=== PATIENT | male | born 1945 | race Caucasian/White ===

== ENCOUNTER 2017-03-12 16:29 | Inpatient (IN) | payer MEDICARE, OTHER ==
[~2017-03-12] VITALS: Ht 172.7 cm; Wt 75.5 kg
[~2017-03-12 16:29] MED LIST: ACET160O49 PO; ACET325T9 PO; ATOR10TA60 PO; BENZ1LOZ48 MM; CHOL10003 PO; DIVA125C PO; DONE10TA61 PO; DULO30CA2 PO; DULO60CA6 PO; ESOM20CA PO; LISI10TA2 PO; LORA0.5T PO; LORA0.5T96 PO; LORA1TAB PO; MAG30ORA2 PO; MAGN2400 PO; MELA3TAB2 PO; MEMA10TA PO; METH29OI TP; QUET100T PO; QUET50TA PO; TRAZ50TA15 PO
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
--- NOTE | 2017-03-12 17:10 | EKG ---
[address] [address] Test Date: 2017-03-12 Test Time: 17:04:39 Pat Name: IVANIA TAM Department: Room: Gender: M Asset Recovery Specialist: FINESSE : 1945 Requested By: JUAN LUIS DELAROSA Order Number: [id number] Reading MD: Lobito Wing Measurements Intervals [place] Rate: 76 P: 21 DC: 228 QRS: 6 QRSD: 82 T: 27 QT: 380 QTc: 432 Interpretive Statements SINUS RHYTHM NONSPECIFIC ST-T WAVE CHANGES. PROLONGED DC INTERVAL ABNORMAL ECG RI6.01 Unconfirmed report Compared to ECG 04/23/2016 19:53:54 No significant changes Electronically Signed On 03-25-2017 10:42:21 TABLE LEVER OPERATOR by Lobito Wing
[2017-03-12 17:25] LABS: BASO % 1 % (0-3); EOS # 0.1 x10^3/uL (0.0-0.7); EOS % 1 % (0-3); HEMATOCRIT 49.9 % (39.0-53.0); HEMOGLOBIN 16.9 g/dL (13.0-17.5); LYMPH # 3.5 x10^3/uL (1.0-4.8); LYMPH % 42 % (24-48); MEAN CORPUSCULAR HEMOGLOBIN 33 pg (25-35); MEAN CORPUSCULAR HGB CONC 34 g/dL (31-37); MEAN CORPUSCULAR VOLUME 98 fL (79-100); MONO # 0.7 x10^3/uL (0.0-1.1); MONO % 8 % (0-9); NEUT % 48 % (31-73); PLATELET COUNT 236 x10^3/uL (140-400); RED BLOOD COUNT 5.11 x10^6/uL (4.30-5.70); RED CELL DISTRIBUTION WIDTH 14.2 % (11.5-14.5); WHITE BLOOD COUNT 8.3 x10^3/uL (4.0-11.0)
[2017-03-12 17:34] LABS: BACTERIA,URINE 0 /HPF (0-FEW); BILIRUBIN,URINE NEG (NEG); CLARITY,URINE CLEAR; COLOR,URINE YELLOW; GLUCOSE,URINE NEG (NEG); NITRITE,URINE NEG (NEG); SQUAMOUS EPITHELIAL CELL,UR MOD /LPF; UROBILINOGEN,URINE 2 mg/dL (0.2 mg/dL); WBC,URINE OCC /HPF (0-4)
[2017-03-12 17:36] LABS: ALBUMIN 3.3 g/dL (3.4-5.0); ALBUMIN/GLOBULIN RATIO 0.8 (1.0-1.7); CREATININE 1.2 mg/dL (0.7-1.3); GFR 59.9; TOTAL BILIRUBIN 0.5 mg/dL (0.2-1.0); TOTAL PROTEIN 7.3 g/dL (6.4-8.2)
[2017-03-12] MEDS ORDERED: DULO30CA2 PO (17:44)
[2017-03-12] MEDS ORDERED: LACT10SO PO (17:46)
[2017-03-12] MEDS ORDERED: LORA0.5T PO (19:26)
[2017-03-12] MEDS: traZODone 50 MG TABLET. PO SCH (20:12)
[2017-03-12] MEDS: LORazepam 0.5 MG TABLET PO PRN (20:12)
[2017-03-12] MEDS: MELATONIN 3 MG TABLET PO SCH (20:12)
[2017-03-12 20:13] LABS: VAL ACID 57 mcg/mL (50-100)
[2017-03-12] MEDS: ATORVASTATIN CALCIUM 10 MG TABLET. PO SCH (20:13)
[2017-03-12] MEDS: DULoxetine HCL 30 MG CAPSULE.DR PO SCH (20:13)
[2017-03-12] MEDS ORDERED: NON FORMULARY ITEM (Magnesium Hydroxide (Milk Of Magnesia) 2,400 MG) PO PRN (20:15)
[2017-03-12] MEDS ORDERED: MAG HYDROX/AL HYDROX/SIMETH 30 ML ORAL.SUSP PO PRN (20:15)
[2017-03-12] MEDS ORDERED: ACETAMINOPHEN 325 MG TABLET PO PRN (20:15)
[2017-03-12] MEDS ORDERED: METHYL SALICYLATE/MENTHOL TOPICAL OINTMENT 29GM TUBE. TP PRN (20:15)
--- NOTE | 2017-03-12 21:08 | PDOC ---
Exam Note: Irvin Note: Please also refer to the separate dictated note~for this date of service dictated separately.~Patient seen individually. Discussed the patient with Nursing staff reviewed the chart.~Reviewed interim history and current functioning. Reviewed vital signs,~Labs/ Radiology~and current medications noted below. Continue current treatment with the changes noted in the dictated addendum note Assessment: Vital Signs: Vital Signs Date Time Temp Pulse Resp B/P (MAP) Pulse Ox O2 Delivery O2 Flow Rate FiO2 03/12/17 16:30 98.2 79 16 98 Room Air Labs: Laboratory Tests Test 03/12/17 16:42 03/12/17 17:01 White Blood Count 8.3 x10^3/uL (4.0-11.0) Red Blood Count 5.11 x10^6/uL (4.30-5.70) Hemoglobin 16.9 g/dL (13.0-17.5) Hematocrit 49.9 % (39.0-53.0) Mean Corpuscular Volume 98 fL (79-100) Mean Corpuscular Hemoglobin 33 pg (25-35) Mean Corpuscular Hemoglobin Concent 34 g/dL (31-37) Red Cell Distribution Width 14.2 % (11.5-14.5) Platelet Count 236 x10^3/uL (140-400) Neutrophils (%) (Auto) 48 % (31-73) Lymphocytes (%) (Auto) 42 % (24-48) Monocytes (%) (Auto) 8 % (0-9) Eosinophils (%) (Auto) 1 % (0-3) Basophils (%) (Auto) 1 % (0-3) Neutrophils # (Auto) 4.0 x10^3uL (1.8-7.7) Lymphocytes # (Auto) 3.5 x10^3/uL (1.0-4.8) Monocytes # (Auto) 0.7 x10^3/uL (0.0-1.1) Eosinophils # (Auto) 0.1 x10^3/uL (0.0-0.7) Basophils # (Auto) 0.0 x10^3/uL (0.0-0.2) Sodium Level 145 mmol/L (136-145) Potassium Level 4.0 mmol/L (3.5-5.1) Chloride Level 107 mmol/L (98-107) Carbon Dioxide Level 28 mmol/L (21-32) Anion Gap 10 (6-14) Blood Urea Nitrogen 19 mg/dL (8-26) Creatinine 1.2 mg/dL (0.7-1.3) Estimated GFR (Cockcroft-Gault) 59.9 BUN/Creatinine Ratio 16 (6-20) Glucose Level 103 mg/dL (70-99) H Calcium Level 9.0 mg/dL (8.5-10.1) Total Bilirubin 0.5 mg/dL (0.2-1.0) Aspartate Amino Transferase (AST) 13 U/L (15-37) L Alanine Aminotransferase (ALT) 24 U/L (16-63) Alkaline Phosphatase 44 U/L (46-116) L Total Protein 7.3 g/dL (6.4-8.2) Albumin 3.3 g/dL (3.4-5.0) L Albumin/Globulin Ratio 0.8 (1.0-1.7) L Valproic Acid Level 57 mcg/mL (50-100) Valproic Acid Last Dose Date 03/12/17 Valproic Acid Last Dose Time 1300 Urine Collection Type Unknown Urine Color Yellow Urine Clarity Clear Urine pH 7.0 Urine Specific [place] 1.020 Urine Protein Neg (NEG-TRACE) Urine Glucose (UA) Neg mg/dL (NEG) Urine Ketones (Stick) Trace mg/dL (NEG) Urine Blood Mod (NEG) Urine Nitrite Neg (NEG) Urine Bilirubin Neg (NEG) Urine Urobilinogen Dipstick 2 mg/dL (0.2 mg/dL) Urine Leukocyte Esterase Neg (NEG) Urine RBC 11-20 /HPF (0-2) Urine WBC Occ /HPF (0-4) Urine Squamous Epithelial Cells Mod /LPF Urine Bacteria 0 /HPF (0-FEW) Urine Mucus Mod /LPF Current Medications: Meds: Current Medications Divalproex Sodium (Depakote Sprinkles) 375 mg TID@0700,1300,1900 PO ; Start at 07:00 Duloxetine HCl (Cymbalta) 30 mg HS PO Last administered on 03/12/17t 20:13; Start 03/12/17 at 21:00 Duloxetine HCl (Cymbalta) 60 mg DAILY PO ; Start 03/13/17 at 09:00 Lorazepam (Ativan) 0.25 mg PRN Q2HR PRN PO ANXIETY / AGITATION Last administered on 03/12/17 20:12; Start 03/12/17 at 19:45 Memantine (Namenda) 10 mg DAILY PO ; Start 03/13/17 at 09:00 Quetiapine Fumarate (SEROquel) 50 mg TID@0700,1300,1900 PO ; Start 03/13/17 at 07:00 Quetiapine Fumarate (SEROquel) 100 mg DAILY16 PO ; Start 03/13/17 at 16:00 Trazodone HCl (Desyrel) 100 mg HS PO Last administered on 03/12/17 20:12; Start 03/12/17 at 21:00 Melatonin 3 mg QHS PO Last administered on 03/12/17 20:12; Start 03/12/17 at 21:00 Acetaminophen (Tylenol) 650 mg PRN Q6HRS PRN PO PAIN / TEMP; Start 03/12/17 at 20:15 Atorvastatin Calcium (Lipitor) 10 mg QHS PO Last administered on 03/12/17 20: 13; Start 03/12/17 at 21:00 Al Hydroxide/Mg Hydroxide (Mylanta Plus Xs) 15 ml QIDPRN PRN PO DYSPEPSIA; Start 03/12/17 at 20:15 Multi-Ingredient Ointment (Analgesic [place]) 1 shaila PRN QID PRN TP MUSCLE PAIN; Start 03/12/17 at 20:15 Pantoprazole Sodium (Protonix) 40 mg DAILYAC PO ; Start 03/13/17 at 07:30 Lactulose 10 gm DAILYWBKFT PO ; Start 03/13/17 at 08:00 Non-Formulary Medication 2,400 mg PRN QHS PRN PO CONSTIPATION; Start 03/12/17 at 20:15; Stop 03/12/17 at 20:15; Status DC Magnesium Hydroxide (Milk Of Magnesia) 2,400 mg PRN QHS PRN PO CONSTIPATION; Start 03/12/17 at 20:15 Active Scripts Active Reported Lorazepam 0.5 Mg Tablet 0.25 Mg PO PRN Q2HR PRN MDD 2mg/24hrs Lactulose 10 Gm/15 Ml Solution 10 Gm PO DAILYWBKFT Depakote Sprinkle (Divalproex Sodium) 125 Mg Cap.sprink 375 Mg PO TID 0700, 1300 , 1900 Analgesic [place] (Methyl Salicylate/Menthol) 29 Gm Oint...g. 1 Applic TP QID PRN Milk Of Magnesia (Magnesium Hydroxide) 2,400 Mg/10 Ml Oral.susp 2,400 Mg PO HS PRN Mag-Al Plus Xs Suspension (Mag Hydrox/Al Hydrox/Simeth) 30 Ml Oral.susp 15 Ml PO QIDPRN PRN Tylenol (Acetaminophen) 325 Mg Tablet 650 Mg PO Q6HRS PRN Trazodone Hcl 50 Mg Tablet 100 Mg PO HS Quetiapine Fumarate 50 Mg Tablet 50 Mg PO TID 0700, 1300, 1900 Quetiapine Fumarate 100 Mg Tablet 100 Mg PO DAILY16 Namenda (Memantine Hcl) 10 Mg Tablet 10 Mg PO DAILY 10 Days Melatonin 3 Mg Tablet 3 Mg PO HS Esomeprazole Magnesium 20 Mg Capsule.dr 20 Mg PO DAILY Cymbalta (Duloxetine Hcl) 60 Mg Capsule.dr 60 Mg PO DAILY Cymbalta (Duloxetine Hcl) 30 Mg Capsule.dr 30 Mg PO HS Atorvastatin Calcium 10 Mg Tablet 10 Mg PO QHS I have reviewed the current psychotropics carefully including drug interactions. Risk benefit ratio favors no change other than as noted in my dictated progress note. Diagnosis: Problems: (1) Dementia with behavioral disturbance (2) Dementia, vascular, with depression (3) Impulse control disorder (4) Anxiety disorder (5) Lewy body dementia with behavioral disturbance SOHAIL VELASQUEZ MD Mar 12, 2017 21:08
--- NOTE | 2017-03-12 21:46 | PDOC ---
Exam Note: Irvin Note: Please also refer to the separate dictated note~for this date of service dictated separately.~Patient seen individually. Discussed the patient with Nursing staff reviewed the chart.~Reviewed interim history and current functioning. Reviewed vital signs,~Labs/ Radiology~and current medications noted below. Continue current treatment with the changes noted in the dictated addendum note Assessment: Vital Signs: Vital Signs Date Time Temp Pulse Resp B/P (MAP) Pulse Ox O2 Delivery O2 Flow Rate FiO2 03/12/17 16:30 98.2 79 16 98 Room Air Labs: Laboratory Tests Test 03/12/17 16:42 03/12/17 17:01 White Blood Count 8.3 x10^3/uL (4.0-11.0) Red Blood Count 5.11 x10^6/uL (4.30-5.70) Hemoglobin 16.9 g/dL (13.0-17.5) Hematocrit 49.9 % (39.0-53.0) Mean Corpuscular Volume 98 fL (79-100) Mean Corpuscular Hemoglobin 33 pg (25-35) Mean Corpuscular Hemoglobin Concent 34 g/dL (31-37) Red Cell Distribution Width 14.2 % (11.5-14.5) Platelet Count 236 x10^3/uL (140-400) Neutrophils (%) (Auto) 48 % (31-73) Lymphocytes (%) (Auto) 42 % (24-48) Monocytes (%) (Auto) 8 % (0-9) Eosinophils (%) (Auto) 1 % (0-3) Basophils (%) (Auto) 1 % (0-3) Neutrophils # (Auto) 4.0 x10^3uL (1.8-7.7) Lymphocytes # (Auto) 3.5 x10^3/uL (1.0-4.8) Monocytes # (Auto) 0.7 x10^3/uL (0.0-1.1) Eosinophils # (Auto) 0.1 x10^3/uL (0.0-0.7) Basophils # (Auto) 0.0 x10^3/uL (0.0-0.2) Sodium Level 145 mmol/L (136-145) Potassium Level 4.0 mmol/L (3.5-5.1) Chloride Level 107 mmol/L (98-107) Carbon Dioxide Level 28 mmol/L (21-32) Anion Gap 10 (6-14) Blood Urea Nitrogen 19 mg/dL (8-26) Creatinine 1.2 mg/dL (0.7-1.3) Estimated GFR (Cockcroft-Gault) 59.9 BUN/Creatinine Ratio 16 (6-20) Glucose Level 103 mg/dL (70-99) H Calcium Level 9.0 mg/dL (8.5-10.1) Total Bilirubin 0.5 mg/dL (0.2-1.0) Aspartate Amino Transferase (AST) 13 U/L (15-37) L Alanine Aminotransferase (ALT) 24 U/L (16-63) Alkaline Phosphatase 44 U/L (46-116) L Total Protein 7.3 g/dL (6.4-8.2) Albumin 3.3 g/dL (3.4-5.0) L Albumin/Globulin Ratio 0.8 (1.0-1.7) L Valproic Acid Level 57 mcg/mL (50-100) Valproic Acid Last Dose Date 03/12/17 Valproic Acid Last Dose Time 1300 Urine Collection Type Unknown Urine Color Yellow Urine Clarity Clear Urine pH 7.0 Urine Specific [place] 1.020 Urine Protein Neg (NEG-TRACE) Urine Glucose (UA) Neg mg/dL (NEG) Urine Ketones (Stick) Trace mg/dL (NEG) Urine Blood Mod (NEG) Urine Nitrite Neg (NEG) Urine Bilirubin Neg (NEG) Urine Urobilinogen Dipstick 2 mg/dL (0.2 mg/dL) Urine Leukocyte Esterase Neg (NEG) Urine RBC 11-20 /HPF (0-2) Urine WBC Occ /HPF (0-4) Urine Squamous Epithelial Cells Mod /LPF Urine Bacteria 0 /HPF (0-FEW) Urine Mucus Mod /LPF Current Medications: Meds: Current Medications Divalproex Sodium (Depakote Sprinkles) 375 mg TID@0700,1300,1900 PO ; Start at 07:00 Duloxetine HCl (Cymbalta) 30 mg HS PO Last administered on 03/12/17t 20:13; Start 03/12/17 at 21:00 Duloxetine HCl (Cymbalta) 60 mg DAILY PO ; Start 03/13/17 at 09:00 Lorazepam (Ativan) 0.25 mg PRN Q2HR PRN PO ANXIETY / AGITATION Last administered on 03/12/17 20:12; Start 03/12/17 at 19:45 Memantine (Namenda) 10 mg DAILY PO ; Start 03/13/17 at 09:00 Quetiapine Fumarate (SEROquel) 50 mg TID@0700,1300,1900 PO ; Start 03/13/17 at 07:00 Quetiapine Fumarate (SEROquel) 100 mg DAILY16 PO ; Start 03/13/17 at 16:00 Trazodone HCl (Desyrel) 100 mg HS PO Last administered on 03/12/17 20:12; Start 03/12/17 at 21:00 Melatonin 3 mg QHS PO Last administered on 03/12/17 20:12; Start 03/12/17 at 21:00 Acetaminophen (Tylenol) 650 mg PRN Q6HRS PRN PO PAIN / TEMP; Start 03/12/17 at 20:15 Atorvastatin Calcium (Lipitor) 10 mg QHS PO Last administered on 03/12/17 20: 13; Start 03/12/17 at 21:00 Al Hydroxide/Mg Hydroxide (Mylanta Plus Xs) 15 ml QIDPRN PRN PO DYSPEPSIA; Start 03/12/17 at 20:15 Multi-Ingredient Ointment (Analgesic [place]) 1 shaila PRN QID PRN TP MUSCLE PAIN; Start 03/12/17 at 20:15 Pantoprazole Sodium (Protonix) 40 mg DAILYAC PO ; Start 03/13/17 at 07:30 Lactulose 10 gm DAILYWBKFT PO ; Start 03/13/17 at 08:00 Non-Formulary Medication 2,400 mg PRN QHS PRN PO CONSTIPATION; Start 03/12/17 at 20:15; Stop 03/12/17 at 20:15; Status DC Magnesium Hydroxide (Milk Of Magnesia) 2,400 mg PRN QHS PRN PO CONSTIPATION; Start 03/12/17 at 20:15 Active Scripts Active Reported Lorazepam 0.5 Mg Tablet 0.25 Mg PO PRN Q2HR PRN MDD 2mg/24hrs Lactulose 10 Gm/15 Ml Solution 10 Gm PO DAILYWBKFT Depakote Sprinkle (Divalproex Sodium) 125 Mg Cap.sprink 375 Mg PO TID 0700, 1300 , 1900 Analgesic [place] (Methyl Salicylate/Menthol) 29 Gm Oint...g. 1 Applic TP QID PRN Milk Of Magnesia (Magnesium Hydroxide) 2,400 Mg/10 Ml Oral.susp 2,400 Mg PO HS PRN Mag-Al Plus Xs Suspension (Mag Hydrox/Al Hydrox/Simeth) 30 Ml Oral.susp 15 Ml PO QIDPRN PRN Tylenol (Acetaminophen) 325 Mg Tablet 650 Mg PO Q6HRS PRN Trazodone Hcl 50 Mg Tablet 100 Mg PO HS Quetiapine Fumarate 50 Mg Tablet 50 Mg PO TID 0700, 1300, 1900 Quetiapine Fumarate 100 Mg Tablet 100 Mg PO DAILY16 Namenda (Memantine Hcl) 10 Mg Tablet 10 Mg PO DAILY 10 Days Melatonin 3 Mg Tablet 3 Mg PO HS Esomeprazole Magnesium 20 Mg Capsule.dr 20 Mg PO DAILY Cymbalta (Duloxetine Hcl) 60 Mg Capsule.dr 60 Mg PO DAILY Cymbalta (Duloxetine Hcl) 30 Mg Capsule.dr 30 Mg PO HS Atorvastatin Calcium 10 Mg Tablet 10 Mg PO QHS I have reviewed the current psychotropics carefully including drug interactions. Risk benefit ratio favors no change other than as noted in my dictated progress note. Diagnosis: Problems: (1) DEMENTIA WITH LEWY BODIES (2) Dementia with behavioral disturbance (3) Lewy body dementia with behavioral disturbance (4) Anxiety disorder (5) Impulse control disorder (6) Dementia, vascular, with depression (7) Diabetes mellitus SOHAIL VELASQUEZ MD Mar 12, 2017 21:46
[2017-03-12 22:54] VITALS: BP 138/78
[2017-03-13] MEDS: QUEtiapine 25 MG TABLET. PO SCH ×4 (05:34→18:27)
[2017-03-13] MEDS: DIVALPROEX 125 MG CAP.SPRINK PO SCH ×3 (05:34→18:27)
[2017-03-13 05:52] VITALS: BP 148/92
--- NOTE | 2017-03-13 08:01 | RAD ---
Single view chest 03/12/2017 Clinical indication: Altered mental status. Comparison: 04/23/2016 Findings: Cardiac and mediastinal silhouettes are within normal limits. No pleural effusion, pneumothorax or focal consolidation. Impression: No acute cardiopulmonary abnormality.
[2017-03-13] MEDS: LACTULOSE 20 GM/30 ML SOLUTION. PO SCH (09:47)
[2017-03-13] MEDS: PANTOPRAZOLE 40 MG TABLET. PO SCH (09:47)
[2017-03-13] MEDS: DULoxetine HCL 60 MG CAPSULE.DR PO SCH (09:47)
[2017-03-13] MEDS: MEMANTINE 5 MG TABLET. PO SCH (09:48)
[2017-03-13 10:59] LABS: THYROID STIM HORMONE (TSH) 2.293 uIU/mL (0.358-3.740)
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
[2017-03-13 14:09] LABS: T3 TOTAL 69 ng/dL (71-180); THYROXINE 5.3 ug/dL (4.5-12.0)
[2017-03-13 15:06] LABS: HEMOGLOBIN A1C 5.4 % (4.8-5.6)
[2017-03-13 16:09] VITALS: BP 156/65
--- NOTE | 2017-03-13 20:15 | PDOC ---
Exam Note: Irvin Note: Please also refer to the separate dictated note~for this date of service dictated separately.~Patient seen individually. Discussed the patient with Nursing staff reviewed the chart.~Reviewed interim history and current functioning. Reviewed vital signs,~Labs/ Radiology~and current medications noted below. Continue current treatment with the changes noted in the dictated addendum note Assessment: Vital Signs: Vital Signs Date Time Temp Pulse Resp B/P (MAP) Pulse Ox O2 Delivery O2 Flow Rate FiO2 03/13/17 16:09 98.5 92 20 156/65 (95) 98 03/12/17 22:54 Room Air 0.0 I&O Intake and Output 03/13/17 07:00 Intake Total 360 ml Balance 360 ml Intake Oral 360 ml Current Medications: Meds: Current Medications Divalproex Sodium (Depakote Sprinkles) 375 mg TID@0700,1300,1900 PO Last administered on 03/13/17 18:27; Start 03/13/17 at 07:00 Duloxetine HCl (Cymbalta) 30 mg HS PO Last administered on 03/12/17 20:13; Start 03/12/17 at 21:00 Duloxetine HCl (Cymbalta) 60 mg DAILY PO Last administered on 03/13/17 09:47 ; Start 03/13/17 at 09:00 Lorazepam (Ativan) 0.25 mg PRN Q2HR PRN PO ANXIETY / AGITATION Last administered on 03/12/17 20:12; Start 03/12/17 at 19:45 Memantine (Namenda) 10 mg DAILY PO Last administered on 03/13/17 09:48; Start 03/13/17 at 09:00 Quetiapine Fumarate (SEROquel) 50 mg TID@0700,1300,1900 PO Last administered on 03/13/17 18:27; Start 03/13/17 at 07:00 Quetiapine Fumarate (SEROquel) 100 mg DAILY16 PO Last administered on 16:52; Start 03/13/17 at 16:00 Trazodone HCl (Desyrel) 100 mg HS PO Last administered on 03/12/17 20:12; Start 03/12/17 at 21:00 Melatonin 3 mg QHS PO Last administered on 03/12/17 20:12; Start 03/12/17 at 21:00 Acetaminophen (Tylenol) 650 mg PRN Q6HRS PRN PO PAIN / TEMP; Start 03/12/17 at 20:15 Atorvastatin Calcium (Lipitor) 10 mg QHS PO Last administered on 03/12/17 20: 13; Start 03/12/17 at 21:00 Al Hydroxide/Mg Hydroxide (Mylanta Plus Xs) 15 ml QIDPRN PRN PO DYSPEPSIA; Start 03/12/17 at 20:15 Multi-Ingredient Ointment (Analgesic [place]) 1 shaila PRN QID PRN TP MUSCLE PAIN; Start 03/12/17 at 20:15 Pantoprazole Sodium (Protonix) 40 mg DAILYAC PO Last administered on 09:47; Start 03/13/17 at 07:30 Lactulose 10 gm DAILYWBKFT PO Last administered on 03/13/17 09:47; Start at 08:00 Non-Formulary Medication 2,400 mg PRN QHS PRN PO CONSTIPATION; Start 03/12/17 at 20:15; Stop 03/12/17 at 20:15; Status DC Magnesium Hydroxide (Milk Of Magnesia) 2,400 mg PRN QHS PRN PO CONSTIPATION; Start 03/12/17 at 20:15 Active Scripts Active Reported Lorazepam 0.5 Mg Tablet 0.25 Mg PO PRN Q2HR PRN MDD 2mg/24hrs Lactulose 10 Gm/15 Ml Solution 10 Gm PO DAILYWBKFT Depakote Sprinkle (Divalproex Sodium) 125 Mg Cap.sprink 375 Mg PO TID 0700, 1300 , 1900 Analgesic [place] (Methyl Salicylate/Menthol) 29 Gm Oint...g. 1 Applic TP QID PRN Milk Of Magnesia (Magnesium Hydroxide) 2,400 Mg/10 Ml Oral.susp 2,400 Mg PO HS PRN Mag-Al Plus Xs Suspension (Mag Hydrox/Al Hydrox/Simeth) 30 Ml Oral.susp 15 Ml PO QIDPRN PRN Tylenol (Acetaminophen) 325 Mg Tablet 650 Mg PO Q6HRS PRN Trazodone Hcl 50 Mg Tablet 100 Mg PO HS Quetiapine Fumarate 50 Mg Tablet 50 Mg PO TID 0700, 1300, 1900 Quetiapine Fumarate 100 Mg Tablet 100 Mg PO DAILY16 Namenda (Memantine Hcl) 10 Mg Tablet 10 Mg PO DAILY 10 Days Melatonin 3 Mg Tablet 3 Mg PO HS Esomeprazole Magnesium 20 Mg Capsule.dr 20 Mg PO DAILY Cymbalta (Duloxetine Hcl) 60 Mg Capsule.dr 60 Mg PO DAILY Cymbalta (Duloxetine Hcl) 30 Mg Capsule.dr 30 Mg PO HS Atorvastatin Calcium 10 Mg Tablet 10 Mg PO QHS I have reviewed the current psychotropics carefully including drug interactions. Risk benefit ratio favors no change other than as noted in my dictated progress note. Diagnosis: Problems: (1) Dementia with behavioral disturbance (2) DEMENTIA WITH LEWY BODIES (3) Lewy body dementia with behavioral disturbance (4) Anxiety disorder (5) Impulse control disorder (6) Dementia, vascular, with depression (7) Diabetes mellitus SOHAIL VELASQUEZ MD Mar 13, 2017 20:15
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
[2017-03-13] MEDS: ATORVASTATIN CALCIUM 10 MG TABLET. PO SCH (20:46)
[2017-03-13] MEDS: traZODone 50 MG TABLET. PO SCH (20:46)
[2017-03-13] MEDS: DULoxetine HCL 30 MG CAPSULE.DR PO SCH (20:46)
[2017-03-13] MEDS: MELATONIN 3 MG TABLET PO SCH (20:46)
[2017-03-13] MEDS: LORazepam 0.5 MG TABLET PO PRN (22:36)
--- NOTE | 2017-03-14 01:31 | PN ---
DATE: 03/12/2017 This note covers the elements not covered in my initial, 03/13/2017. SUBJECTIVE: The patient was seen individually evening of 03/13/2017. Overall, per nursing report, the patient is compliant, cooperative earlier in the day, he was agitated, checking the doors, exit seeking, especially after his left. REVIEW OF SYSTEMS: No CV, , pulmonary, eye, ENT system symptoms on review. Reliability poor. MENTAL STATUS EXAM: Oriented to himself. Insight, judgment, recent and remote memory, attention, concentration, fund of knowledge poor, consistent with his diagnosis. LABORATORY DATA: Major neurocognitive disorder, Lewy body, Alzheimer's, vascular with delusion, depression, behavioral disturbance; anxiety disorder, unspecified; impulse control disorder, unspecified. PLAN: Continue current psychotropics as mentioned in my initial note. Make further changes as clinically indicated. MAN Ajit VELASQUEZ MD DR: CHRISTY/samara JOB#: [id number] / [id number]
[2017-03-14 06:37] VITALS: BP 137/66
[2017-03-14] MEDS: LORazepam 0.5 MG TABLET PO PRN ×2 (07:17→11:06)
[2017-03-14] MEDS: PANTOPRAZOLE 40 MG TABLET. PO SCH ×2 (07:30→09:35)
[2017-03-14] MEDS: LACTULOSE 20 GM/30 ML SOLUTION. PO SCH ×2 (08:00→09:34)
[2017-03-14] MEDS: QUEtiapine 25 MG TABLET. PO SCH ×4 (08:00→16:24)
[2017-03-14] MEDS: DIVALPROEX 125 MG CAP.SPRINK PO SCH ×4 (08:00→18:41)
[2017-03-14] MEDS: DULoxetine HCL 60 MG CAPSULE.DR PO SCH ×2 (09:00→09:35)
[2017-03-14] MEDS: MEMANTINE 5 MG TABLET. PO SCH ×2 (09:00→09:34)
[2017-03-14 16:01] VITALS: BP 94/63
[2017-03-14] MEDS: QUEtiapine 50 MG TABLET. PO SCH (18:42)
[2017-03-14] MEDS: MELATONIN 3 MG TABLET PO SCH (19:27)
[2017-03-14] MEDS: DULoxetine HCL 30 MG CAPSULE.DR PO SCH (19:27)
[2017-03-14] MEDS: ATORVASTATIN CALCIUM 10 MG TABLET. PO SCH (19:28)
[2017-03-14] MEDS: traZODone 50 MG TABLET. PO SCH (19:28)
--- NOTE | 2017-03-14 20:06 | PDOC ---
Exam Note: Irvin Note: Please also refer to the separate dictated note~for this date of service dictated separately.~Patient seen individually. Discussed the patient with Nursing staff reviewed the chart.~Reviewed interim history and current functioning. Reviewed vital signs,~Labs/ Radiology~and current medications noted below. Continue current treatment with the changes noted in the dictated addendum note Assessment: Vital Signs: Vital Signs Date Time Temp Pulse Resp B/P (MAP) Pulse Ox O2 Delivery O2 Flow Rate FiO2 03/14/17 16:01 97.1 78 18 94/63 (73) 98 03/12/17 22:54 Room Air 0.0 I&O Intake and Output 03/14/17 07:00 Intake Total 1160 ml Balance 1160 ml Intake Oral 1160 ml # Voids 2 # Bowel Movements 1 Current Medications: Meds: Current Medications Divalproex Sodium (Depakote Sprinkles) 375 mg TID@0700,1300,1900 PO Last administered on 03/13/17 18:27; Start 03/13/17 at 07:00; Stop 03/14/17 at 06 :35; Status DC Duloxetine HCl (Cymbalta) 30 mg HS PO Last administered on 03/14/17 19:27; Start 03/12/17 at 21:00 Duloxetine HCl (Cymbalta) 60 mg DAILY PO Last administered on 03/13/17 09:47 ; Start 03/13/17 at 09:00 Lorazepam (Ativan) 0.25 mg PRN Q2HR PRN PO ANXIETY / AGITATION Last administered on 03/14/17 11:06; Start 03/12/17 at 19:45 Memantine (Namenda) 10 mg DAILY PO Last administered on 03/13/17 09:48; Start 03/13/17 at 09:00 Quetiapine Fumarate (SEROquel) 50 mg TID@0700,1300,1900 PO Last administered on 03/13/17 18:27; Start 03/13/17 at 07:00; Stop 03/14/17 at 06:35; Status DC Quetiapine Fumarate (SEROquel) 100 mg DAILY16 PO Last administered on 16:24; Start 03/13/17 at 16:00 Trazodone HCl (Desyrel) 100 mg HS PO Last administered on 03/14/17 19:28; Start 03/12/17 at 21:00 Melatonin 3 mg QHS PO Last administered on 03/14/17 19:27; Start 03/12/17 at 21:00 Acetaminophen (Tylenol) 650 mg PRN Q6HRS PRN PO PAIN / TEMP; Start 03/12/17 at 20:15 Atorvastatin Calcium (Lipitor) 10 mg QHS PO Last administered on 03/14/17 19: 28; Start 03/12/17 at 21:00 Al Hydroxide/Mg Hydroxide (Mylanta Plus Xs) 15 ml QIDPRN PRN PO DYSPEPSIA; Start 03/12/17 at 20:15 Multi-Ingredient Ointment (Analgesic [place]) 1 shaila PRN QID PRN TP MUSCLE PAIN; Start 03/12/17 at 20:15 Pantoprazole Sodium (Protonix) 40 mg DAILYAC PO Last administered on 09:47; Start 03/13/17 at 07:30 Lactulose 10 gm DAILYWBKFT PO Last administered on 03/13/17 09:47; Start at 08:00 Non-Formulary Medication 2,400 mg PRN QHS PRN PO CONSTIPATION; Start 03/12/17 at 20:15; Stop 03/12/17 at 20:15; Status DC Magnesium Hydroxide (Milk Of Magnesia) 2,400 mg PRN QHS PRN PO CONSTIPATION; Start 03/12/17 at 20:15 Divalproex Sodium (Depakote Sprinkles) 375 mg TID@0800,1300,1900 PO Last administered on 03/14/17 18:41; Start 03/14/17 at 08:00 Quetiapine Fumarate (SEROquel) 50 mg TID@0800,1300,1900 PO Last administered on 03/14/17 14:14; Start 03/14/17 at 08:00; Stop 03/14/17 at 18:33; Status DC Quetiapine Fumarate (SEROquel) 50 mg BID@1300,1900 PO Last administered on 18:42; Start 03/14/17 at 19:00 Quetiapine Fumarate (SEROquel) 62.5 mg DAILY08 PO ; Start 03/15/17 at 08:00 Active Scripts Active Reported Lorazepam 0.5 Mg Tablet 0.25 Mg PO PRN Q2HR PRN MDD 2mg/24hrs Lactulose 10 Gm/15 Ml Solution 10 Gm PO DAILYWBKFT Depakote Sprinkle (Divalproex Sodium) 125 Mg Cap.sprink 375 Mg PO TID 0700, 1300 , 1900 Analgesic [place] (Methyl Salicylate/Menthol) 29 Gm Oint...g. 1 Applic TP QID PRN Milk Of Magnesia (Magnesium Hydroxide) 2,400 Mg/10 Ml Oral.susp 2,400 Mg PO HS PRN Mag-Al Plus Xs Suspension (Mag Hydrox/Al Hydrox/Simeth) 30 Ml Oral.susp 15 Ml PO QIDPRN PRN Tylenol (Acetaminophen) 325 Mg Tablet 650 Mg PO Q6HRS PRN Trazodone Hcl 50 Mg Tablet 100 Mg PO HS Quetiapine Fumarate 50 Mg Tablet 50 Mg PO TID 0700, 1300, 1900 Quetiapine Fumarate 100 Mg Tablet 100 Mg PO DAILY16 Namenda (Memantine Hcl) 10 Mg Tablet 10 Mg PO DAILY 10 Days Melatonin 3 Mg Tablet 3 Mg PO HS Esomeprazole Magnesium 20 Mg Capsule. 20 Mg PO DAILY Cymbalta (Duloxetine Hcl) 60 Mg Capsule. 60 Mg PO DAILY Cymbalta (Duloxetine Hcl) 30 Mg Capsule.dr 30 Mg PO HS Atorvastatin Calcium 10 Mg Tablet 10 Mg PO QHS I have reviewed the current psychotropics carefully including drug interactions. Risk benefit ratio favors no change other than as noted in my dictated progress note. Diagnosis: Problems: (1) Dementia with behavioral disturbance (2) DEMENTIA WITH LEWY BODIES (3) Lewy body dementia with behavioral disturbance (4) Anxiety disorder (5) Impulse control disorder (6) Dementia, vascular, with depression (7) Diabetes mellitus SOHAIL VELASQUEZ MD Mar 14, 2017 20:06
[2017-03-15] MEDS: LORazepam 0.5 MG TABLET PO PRN ×3 (06:19→20:11)
[2017-03-15 06:25] VITALS: BP 139/90
[2017-03-15] MEDS: PANTOPRAZOLE 40 MG TABLET. PO SCH ×2 (07:30→09:33)
[2017-03-15] MEDS: LACTULOSE 20 GM/30 ML SOLUTION. PO SCH ×2 (08:00→09:33)
[2017-03-15] MEDS: QUEtiapine 25 MG TABLET. PO SCH ×3 (08:00→16:33)
[2017-03-15] MEDS: DIVALPROEX 125 MG CAP.SPRINK PO SCH ×4 (08:00→17:56)
[2017-03-15] MEDS: DULoxetine HCL 60 MG CAPSULE.DR PO SCH ×2 (09:00→09:33)
[2017-03-15] MEDS: MEMANTINE 5 MG TABLET. PO SCH ×2 (09:00→09:33)
[2017-03-15] MEDS: MAGNESIUM HYDROXIDE 2,400 MG/30 ML ORAL.SUSP. PO PRN (09:35)
[2017-03-15] MEDS: QUEtiapine 50 MG TABLET. PO SCH ×2 (12:48→17:56)
[2017-03-15 15:42] VITALS: BP 129/86
--- NOTE | 2017-03-15 20:10 | PDOC ---
Exam Note: Irvin Note: Please also refer to the separate dictated note~for this date of service dictated separately.~Patient seen individually. Discussed the patient with Nursing staff reviewed the chart.~Reviewed interim history and current functioning. Reviewed vital signs,~Labs/ Radiology~and current medications noted below. Continue current treatment with the changes noted in the dictated addendum note Assessment: Vital Signs: Vital Signs Date Time Temp Pulse Resp B/P (MAP) Pulse Ox O2 Delivery O2 Flow Rate FiO2 03/15/17 15:42 97.8 91 16 129/86 (100) 94 03/12/17 22:54 Room Air 0.0 I&O Intake and Output 03/15/17 07:00 Intake Total 480 ml Balance 480 ml Intake Oral 480 ml Current Medications: Meds: Current Medications Divalproex Sodium (Depakote Sprinkles) 375 mg TID@0700,1300,1900 PO Last administered on 03/13/17 18:27; Start 03/13/17 at 07:00; Stop 03/14/17 at 06 :35; Status DC Duloxetine HCl (Cymbalta) 30 mg HS PO Last administered on 03/14/17 19:27; Start 03/12/17 at 21:00 Duloxetine HCl (Cymbalta) 60 mg DAILY PO Last administered on 03/13/17 09:47 ; Start 03/13/17 at 09:00 Lorazepam (Ativan) 0.25 mg PRN Q2HR PRN PO ANXIETY / AGITATION Last administered on 03/15/17 11:17; Start 03/12/17 at 19:45 Memantine (Namenda) 10 mg DAILY PO Last administered on 03/13/17 09:48; Start 03/13/17 at 09:00 Quetiapine Fumarate (SEROquel) 50 mg TID@0700,1300,1900 PO Last administered on 03/13/17 18:27; Start 03/13/17 at 07:00; Stop 03/14/17 at 06:35; Status DC Quetiapine Fumarate (SEROquel) 100 mg DAILY16 PO Last administered on 16:33; Start 03/13/17 at 16:00 Trazodone HCl (Desyrel) 100 mg HS PO Last administered on 03/14/17 19:28; Start 03/12/17 at 21:00 Melatonin 3 mg QHS PO Last administered on 03/14/17 19:27; Start 03/12/17 at 21:00 Acetaminophen (Tylenol) 650 mg PRN Q6HRS PRN PO PAIN / TEMP; Start 03/12/17 at 20:15 Atorvastatin Calcium (Lipitor) 10 mg QHS PO Last administered on 03/14/17 19: 28; Start 03/12/17 at 21:00 Al Hydroxide/Mg Hydroxide (Mylanta Plus Xs) 15 ml QIDPRN PRN PO DYSPEPSIA; Start 03/12/17 at 20:15 Multi-Ingredient Ointment (Analgesic [place]) 1 shaila PRN QID PRN TP MUSCLE PAIN; Start 03/12/17 at 20:15 Pantoprazole Sodium (Protonix) 40 mg DAILYAC PO Last administered on 09:47; Start 03/13/17 at 07:30 Lactulose 10 gm DAILYWBKFT PO Last administered on 03/13/17 09:47; Start at 08:00 Non-Formulary Medication 2,400 mg PRN QHS PRN PO CONSTIPATION; Start 03/12/17 at 20:15; Stop 03/12/17 at 20:15; Status DC Magnesium Hydroxide (Milk Of Magnesia) 2,400 mg PRN QHS PRN PO CONSTIPATION; Start 03/12/17 at 20:15 Divalproex Sodium (Depakote Sprinkles) 375 mg TID@0800,1300,1900 PO Last administered on 03/15/17 17:56; Start 03/14/17 at 08:00 Quetiapine Fumarate (SEROquel) 50 mg TID@0800,1300,1900 PO Last administered on 03/14/17 14:14; Start 03/14/17 at 08:00; Stop 03/14/17 at 18:33; Status DC Quetiapine Fumarate (SEROquel) 50 mg BID@1300,1900 PO Last administered on 12:48; Start 03/14/17 at 19:00; Stop 03/15/17 at 17:38; Status DC Quetiapine Fumarate (SEROquel) 62.5 mg DAILY08 PO ; Start 03/15/17 at 08:00 Olanzapine (ZyPREXA ZYDIS) 2.5 mg PRN Q2HR PRN PO PSYCHOSIS Last administered on 03/15/17 11:17; Start 03/15/17 at 08:00 Quetiapine Fumarate (SEROquel) 50 mg DAILY@1900 PO Last administered on 17:56; Start 03/15/17 at 19:00 Quetiapine Fumarate (SEROquel) 62.5 mg DAILY@1300 PO ; Start 03/16/17 at 13:00 Vitamin D (Vitamin D3) 50,000 unit WEEKLY PO ; Start 03/15/17 at 19:00 Active Scripts Active Reported Lorazepam 0.5 Mg Tablet 0.25 Mg PO PRN Q2HR PRN MDD 2mg/24hrs Lactulose 10 Gm/15 Ml Solution 10 Gm PO DAILYWBKFT Depakote Sprinkle (Divalproex Sodium) 125 Mg Cap.sprink 375 Mg PO TID 0700, 1300 , 1900 Analgesic [place] (Methyl Salicylate/Menthol) 29 Gm Oint...g. 1 Applic TP QID PRN Milk Of Magnesia (Magnesium Hydroxide) 2,400 Mg/10 Ml Oral.susp 2,400 Mg PO HS PRN Mag-Al Plus Xs Suspension (Mag Hydrox/Al Hydrox/Simeth) 30 Ml Oral.susp 15 Ml PO QIDPRN PRN Tylenol (Acetaminophen) 325 Mg Tablet 650 Mg PO Q6HRS PRN Trazodone Hcl 50 Mg Tablet 100 Mg PO HS Quetiapine Fumarate 50 Mg Tablet 50 Mg PO TID 0700, 1300, 1900 Quetiapine Fumarate 100 Mg Tablet 100 Mg PO DAILY16 Namenda (Memantine Hcl) 10 Mg Tablet 10 Mg PO DAILY 10 Days Melatonin 3 Mg Tablet 3 Mg PO HS Esomeprazole Magnesium 20 Mg Capsule.dr 20 Mg PO DAILY Cymbalta (Duloxetine Hcl) 60 Mg Capsule.dr 60 Mg PO DAILY Cymbalta (Duloxetine Hcl) 30 Mg Capsule.dr 30 Mg PO HS Atorvastatin Calcium 10 Mg Tablet 10 Mg PO QHS I have reviewed the current psychotropics carefully including drug interactions. Risk benefit ratio favors no change other than as noted in my dictated progress note. Diagnosis: Problems: (1) Dementia with behavioral disturbance (2) DEMENTIA WITH LEWY BODIES (3) Lewy body dementia with behavioral disturbance (4) Anxiety disorder (5) Impulse control disorder (6) Dementia, vascular, with depression (7) Diabetes mellitus SOHAIL VELASQUEZ MD Mar 15, 2017 20:10
[2017-03-15] MEDS: traZODone 50 MG TABLET. PO SCH (20:12)
[2017-03-15] MEDS: DULoxetine HCL 30 MG CAPSULE.DR PO SCH (20:12)
[2017-03-15] MEDS: MELATONIN 3 MG TABLET PO SCH (20:12)
[2017-03-15] MEDS: ATORVASTATIN CALCIUM 10 MG TABLET. PO SCH (20:12)
[2017-03-15] MEDS: CHOLECALCIFEROL (VITAMIN D3) 50,000 UNIT CAPSULE PO SCH (20:14)
[2017-03-16 05:54] VITALS: BP 132/95
[2017-03-16] MEDS: DIVALPROEX 125 MG CAP.SPRINK PO SCH ×3 (07:42→19:03)
[2017-03-16] MEDS: MEMANTINE 5 MG TABLET. PO SCH (07:43)
[2017-03-16] MEDS: QUEtiapine 25 MG TABLET. PO SCH ×2 (07:43→15:57)
[2017-03-16] MEDS: LACTULOSE 20 GM/30 ML SOLUTION. PO SCH (07:43)
[2017-03-16] MEDS: DULoxetine HCL 60 MG CAPSULE.DR PO SCH (07:43)
[2017-03-16] MEDS: PANTOPRAZOLE 40 MG TABLET. PO SCH (07:43)
--- NOTE | 2017-03-16 10:07 | PN ---
DATE: 03/14/2017 This late entry 03/14/2017, covers elements not covered in my initial note 03/14/2017. Met with the patient evening of 03/14/2017. SUBJECTIVE: The patient was quite agitated morning of 03/14/2017, wandering, checking doors, exit seeking, ____ from his room, getting quite agitated, confused about it, had to be placed in the West hallway to remove him from the external stimuli. Received Ativan at 7:20, ____ , received another Ativan p.r.n. 11:00 a.m. At 2:00 p.m., he was disorganized, spitting out his medications. REVIEW OF SYSTEMS: No CV, , pulmonary, eye, ENT system symptoms on review. Reliability poor. MENTAL STATUS EXAM: Oriented to himself. Insight, judgment, recent and remote memory, attention, concentration, fund of knowledge poor, consistent with his diagnosis. He was smiling as I met with him, oblivious of his circumstances, but able to recognize me as "doctor." IMPRESSION: Major neurocognitive disorder, Lewy body with delusion, depression, behavioral disturbance. Rest unchanged from initial note. PLAN: Continue current psychotropics. Depakote is 375 mg t.i.d., level therapeutic at 57. We will increase the morning Seroquel from 50 mg to 62.5 mg. Continue the 50 mg in the afternoon and evening and 100 mg at 4:00 p.m., Namenda 10 mg daily, Aricept 10 mg a day, Cymbalta 90 mg a day, trazodone 100 mg at bedtime, Ativan p.r.n. May need to add Zyprexa p.r.n. Rest unchanged from my initial note. SOHAIL VELASQUEZ MD DR: CHRISTY/samara JOB#: [id number] / [id number]
[2017-03-16] MEDS: QUEtiapine 50 MG TABLET. PO SCH ×2 (13:04→19:03)
[2017-03-16] MEDS: LORazepam 0.5 MG TABLET PO PRN ×2 (13:59→19:18)
[2017-03-16 15:39] VITALS: BP 185/85
[2017-03-16] MEDS: MELATONIN 3 MG TABLET PO SCH (19:18)
[2017-03-16] MEDS: DULoxetine HCL 30 MG CAPSULE.DR PO SCH (19:18)
[2017-03-16] MEDS: ATORVASTATIN CALCIUM 10 MG TABLET. PO SCH (19:18)
[2017-03-16] MEDS: traZODone 50 MG TABLET. PO SCH (19:18)
--- NOTE | 2017-03-16 21:27 | PDOC ---
Exam Note: Irvin Note: Please also refer to the separate dictated note~for this date of service dictated separately.~Patient seen individually. Discussed the patient with Nursing staff reviewed the chart.~Reviewed interim history and current functioning. Reviewed vital signs,~Labs/ Radiology~and current medications noted below. Continue current treatment with the changes noted in the dictated addendum note Assessment: Vital Signs: Vital Signs Date Time Temp Pulse Resp B/P (MAP) Pulse Ox O2 Delivery O2 Flow Rate FiO2 03/16/17 15:39 97.5 66 20 185/85 (118) 96 03/12/17 22:54 Room Air 0.0 I&O Intake and Output 03/16/17 07:00 Intake Total 720 ml Balance 720 ml Intake Oral 720 ml Current Medications: Meds: Current Medications Divalproex Sodium (Depakote Sprinkles) 375 mg TID@0700,1300,1900 PO Last administered on 03/13/17 18:27; Start 03/13/17 at 07:00; Stop 03/14/17 at 06 :35; Status DC Duloxetine HCl (Cymbalta) 30 mg HS PO Last administered on 03/16/17 19:18; Start 03/12/17 at 21:00 Duloxetine HCl (Cymbalta) 60 mg DAILY PO Last administered on 03/16/17 07:43 ; Start 03/13/17 at 09:00 Lorazepam (Ativan) 0.25 mg PRN Q2HR PRN PO ANXIETY / AGITATION Last administered on 03/16/17 19:18; Start 03/12/17 at 19:45 Memantine (Namenda) 10 mg DAILY PO Last administered on 03/16/17 07:43; Start 03/13/17 at 09:00 Quetiapine Fumarate (SEROquel) 50 mg TID@0700,1300,1900 PO Last administered on 03/13/17 18:27; Start 03/13/17 at 07:00; Stop 03/14/17 at 06:35; Status DC Quetiapine Fumarate (SEROquel) 100 mg DAILY16 PO Last administered on 15:57; Start 03/13/17 at 16:00 Trazodone HCl (Desyrel) 100 mg HS PO Last administered on 03/16/17 19:18; Start 03/12/17 at 21:00 Melatonin 3 mg QHS PO Last administered on 03/16/17 19:18; Start 03/12/17 at 21:00 Acetaminophen (Tylenol) 650 mg PRN Q6HRS PRN PO PAIN / TEMP; Start 03/12/17 at 20:15 Atorvastatin Calcium (Lipitor) 10 mg QHS PO Last administered on 03/16/17 19: 18; Start 03/12/17 at 21:00 Al Hydroxide/Mg Hydroxide (Mylanta Plus Xs) 15 ml QIDPRN PRN PO DYSPEPSIA; Start 03/12/17 at 20:15 Multi-Ingredient Ointment (Analgesic [place]) 1 shaila PRN QID PRN TP MUSCLE PAIN; Start 03/12/17 at 20:15 Pantoprazole Sodium (Protonix) 40 mg DAILYAC PO Last administered on 07:43; Start 03/13/17 at 07:30 Lactulose 10 gm DAILYWBKFT PO Last administered on 03/16/17 07:43; Start at 08:00 Non-Formulary Medication 2,400 mg PRN QHS PRN PO CONSTIPATION; Start 03/12/17 at 20:15; Stop 03/12/17 at 20:15; Status DC Magnesium Hydroxide (Milk Of Magnesia) 2,400 mg PRN QHS PRN PO CONSTIPATION; Start 03/12/17 at 20:15 Divalproex Sodium (Depakote Sprinkles) 375 mg TID@0800,1300,1900 PO Last administered on 03/16/17 19:03; Start 03/14/17 at 08:00 Quetiapine Fumarate (SEROquel) 50 mg TID@0800,1300,1900 PO Last administered on 03/14/17 14:14; Start 03/14/17 at 08:00; Stop 03/14/17 at 18:33; Status DC Quetiapine Fumarate (SEROquel) 50 mg BID@1300,1900 PO Last administered on 12:48; Start 03/14/17 at 19:00; Stop 03/15/17 at 17:38; Status DC Quetiapine Fumarate (SEROquel) 62.5 mg DAILY08 PO Last administered on 07:43; Start 03/15/17 at 08:00 Olanzapine (ZyPREXA ZYDIS) 2.5 mg PRN Q2HR PRN PO PSYCHOSIS Last administered on 03/16/17 13:59; Start 03/15/17 at 08:00 Quetiapine Fumarate (SEROquel) 50 mg DAILY@1900 PO Last administered on 19:03; Start 03/15/17 at 19:00 Quetiapine Fumarate (SEROquel) 62.5 mg DAILY@1300 PO Last administered on 03/16 13:04; Start 03/16/17 at 13:00 Vitamin D (Vitamin D3) 50,000 unit WEEKLY PO Last administered on 03/15/17 20 :14; Start 03/15/17 at 19:00 Active Scripts Active Reported Lorazepam 0.5 Mg Tablet 0.25 Mg PO PRN Q2HR PRN MDD 2mg/24hrs Lactulose 10 Gm/15 Ml Solution 10 Gm PO DAILYWBKFT Depakote Sprinkle (Divalproex Sodium) 125 Mg Cap.sprink 375 Mg PO TID 0700, 1300 , 1900 Analgesic [place] (Methyl Salicylate/Menthol) 29 Gm Oint...g. 1 Applic TP QID PRN Milk Of Magnesia (Magnesium Hydroxide) 2,400 Mg/10 Ml Oral.susp 2,400 Mg PO HS PRN Mag-Al Plus Xs Suspension (Mag Hydrox/Al Hydrox/Simeth) 30 Ml Oral.susp 15 Ml PO QIDPRN PRN Tylenol (Acetaminophen) 325 Mg Tablet 650 Mg PO Q6HRS PRN Trazodone Hcl 50 Mg Tablet 100 Mg PO HS Quetiapine Fumarate 50 Mg Tablet 50 Mg PO TID 0700, 1300, 1900 Quetiapine Fumarate 100 Mg Tablet 100 Mg PO DAILY16 Namenda (Memantine Hcl) 10 Mg Tablet 10 Mg PO DAILY 10 Days Melatonin 3 Mg Tablet 3 Mg PO HS Esomeprazole Magnesium 20 Mg Capsule.dr 20 Mg PO DAILY Cymbalta (Duloxetine Hcl) 60 Mg Capsule.dr 60 Mg PO DAILY Cymbalta (Duloxetine Hcl) 30 Mg Capsule.dr 30 Mg PO HS Atorvastatin Calcium 10 Mg Tablet 10 Mg PO QHS I have reviewed the current psychotropics carefully including drug interactions. Risk benefit ratio favors no change other than as noted in my dictated progress note. Diagnosis: Problems: (1) Dementia with behavioral disturbance (2) DEMENTIA WITH LEWY BODIES (3) Lewy body dementia with behavioral disturbance (4) Anxiety disorder (5) Impulse control disorder (6) Dementia, vascular, with depression SOHAIL VELASQUEZ MD Mar 16, 2017 21:27
[2017-03-16] MEDS: MAGNESIUM HYDROXIDE 2,400 MG/30 ML ORAL.SUSP. PO PRN (22:03)
[2017-03-17 05:46] VITALS: BP 138/90
[2017-03-17] MEDS: DIVALPROEX 125 MG CAP.SPRINK PO SCH ×3 (07:31→19:01)
[2017-03-17] MEDS: MEMANTINE 5 MG TABLET. PO SCH (07:32)
[2017-03-17] MEDS: QUEtiapine 25 MG TABLET. PO SCH ×2 (07:32→16:10)
[2017-03-17] MEDS: PANTOPRAZOLE 40 MG TABLET. PO SCH (07:32)
[2017-03-17] MEDS: LACTULOSE 20 GM/30 ML SOLUTION. PO SCH (07:32)
[2017-03-17] MEDS: DULoxetine HCL 60 MG CAPSULE.DR PO SCH (07:32)
--- NOTE | 2017-03-17 08:58 | PN ---
DATE: 03/15/2017 PSYCHIATRIC PROGRESS NOTE This late entry date of service 03/15/2017 covers elements not covered in my initial note of 03/15/2017. I met with the patient in the evening of 03/15/2017. Per nursing report, the patient has had marked mood lability, agitated in the morning, received Ativan at 6:20 a.m., Zyprexa and Ativan after lunch, still labile, paranoid at times. REVIEW OF SYSTEMS: No CV, , pulmonary, eye, ENT system symptoms on review. Reliability poor. MENTAL STATUS EXAM: Oriented to himself. Insight, judgment, recent and remote memory, attention, concentration, fund of knowledge poor, consistent with his diagnosis mentioned in my initial note. IMPRESSION: Major neurocognitive disorder, Lewy body type with delusion, depression, behavioral disturbance. Rest unchanged from initial note. PLAN: Increase the 1300 Seroquel from 50 mg a day to 62.5 mg a day. Rest psychotropics unchanged from initial note. MAN Ajit VELASQUEZ MD DR: CHRISTY/samara JOB#: [id number] / [id number]
[2017-03-17] MEDS: busPIRone 5 MG TABLET. PO SCH (13:30)
[2017-03-17] MEDS: QUEtiapine 50 MG TABLET. PO SCH ×2 (13:30→19:00)
[2017-03-17 16:00] VITALS: BP 120/76
[2017-03-17] MEDS: MELATONIN 3 MG TABLET PO SCH (19:43)
[2017-03-17] MEDS: DULoxetine HCL 30 MG CAPSULE.DR PO SCH (19:44)
[2017-03-17] MEDS: ATORVASTATIN CALCIUM 10 MG TABLET. PO SCH (19:44)
[2017-03-17] MEDS: traZODone 50 MG TABLET. PO SCH (19:44)
[2017-03-17] MEDS: MEMANTINE 10 MG TABLET. PO SCH (19:45)
--- NOTE | 2017-03-17 20:06 | PDOC ---
Exam Note: Irvin Note: Please also refer to the separate dictated note~for this date of service dictated separately.~Patient seen individually. Discussed the patient with Nursing staff reviewed the chart.~Reviewed interim history and current functioning. Reviewed vital signs,~Labs/ Radiology~and current medications noted below. Continue current treatment with the changes noted in the dictated addendum note Assessment: Vital Signs: Vital Signs Date Time Temp Pulse Resp B/P (MAP) Pulse Ox O2 Delivery O2 Flow Rate FiO2 03/17/17 16:00 97.2 93 18 120/76 (91) 93 Room Air 03/12/17 22:54 0.0 I&O Intake and Output 03/17/17 07:00 Intake Total 600 ml Balance 600 ml Intake Oral 600 ml # Voids 1 # Bowel Movements 1 Current Medications: Meds: Current Medications Divalproex Sodium (Depakote Sprinkles) 375 mg TID@0700,1300,1900 PO Last administered on 03/13/17 18:27; Start 03/13/17 at 07:00; Stop 03/14/17 at 06 :35; Status DC Duloxetine HCl (Cymbalta) 30 mg HS PO Last administered on 03/17/17 19:44; Start 03/12/17 at 21:00 Duloxetine HCl (Cymbalta) 60 mg DAILY PO Last administered on 03/17/17 07:32 ; Start 03/13/17 at 09:00 Lorazepam (Ativan) 0.25 mg PRN Q2HR PRN PO ANXIETY / AGITATION Last administered on 03/16/17 19:18; Start 03/12/17 at 19:45 Memantine (Namenda) 10 mg DAILY PO Last administered on 03/17/17 07:32; Start 03/13/17 at 09:00; Stop 03/17/17 at 11:45; Status DC Quetiapine Fumarate (SEROquel) 50 mg TID@0700,1300,1900 PO Last administered on 03/13/17 18:27; Start 03/13/17 at 07:00; Stop 03/14/17 at 06:35; Status DC Quetiapine Fumarate (SEROquel) 100 mg DAILY16 PO Last administered on 16:10; Start 03/13/17 at 16:00 Trazodone HCl (Desyrel) 100 mg HS PO Last administered on 03/17/17 19:44; Start 03/12/17 at 21:00 Melatonin 3 mg QHS PO Last administered on 03/17/17 19:43; Start 03/12/17 at 21:00 Acetaminophen (Tylenol) 650 mg PRN Q6HRS PRN PO PAIN / TEMP; Start 03/12/17 at 20:15 Atorvastatin Calcium (Lipitor) 10 mg QHS PO Last administered on 03/17/17 19: 44; Start 03/12/17 at 21:00 Al Hydroxide/Mg Hydroxide (Mylanta Plus Xs) 15 ml QIDPRN PRN PO DYSPEPSIA; Start 03/12/17 at 20:15 Multi-Ingredient Ointment (Analgesic [place]) 1 shaila PRN QID PRN TP MUSCLE PAIN; Start 03/12/17 at 20:15 Pantoprazole Sodium (Protonix) 40 mg DAILYAC PO Last administered on 07:32; Start 03/13/17 at 07:30 Lactulose 10 gm DAILYWBKFT PO Last administered on 03/17/17 07:32; Start at 08:00 Non-Formulary Medication 2,400 mg PRN QHS PRN PO CONSTIPATION; Start 03/12/17 at 20:15; Stop 03/12/17 at 20:15; Status DC Magnesium Hydroxide (Milk Of Magnesia) 2,400 mg PRN QHS PRN PO CONSTIPATION Last administered on 03/16/17 22:03; Start 03/12/17 at 20:15 Divalproex Sodium (Depakote Sprinkles) 375 mg TID@0800,1300,1900 PO Last administered on 03/17/17 19:01; Start 03/14/17 at 08:00 Quetiapine Fumarate (SEROquel) 50 mg TID@0800,1300,1900 PO Last administered on 03/14/17 14:14; Start 03/14/17 at 08:00; Stop 03/14/17 at 18:33; Status DC Quetiapine Fumarate (SEROquel) 50 mg BID@1300,1900 PO Last administered on 12:48; Start 03/14/17 at 19:00; Stop 03/15/17 at 17:38; Status DC Quetiapine Fumarate (SEROquel) 62.5 mg DAILY08 PO Last administered on 07:32; Start 03/15/17 at 08:00 Olanzapine (ZyPREXA ZYDIS) 2.5 mg PRN Q2HR PRN PO PSYCHOSIS Last administered on 03/16/17 13:59; Start 03/15/17 at 08:00 Quetiapine Fumarate (SEROquel) 50 mg DAILY@1900 PO Last administered on 19:00; Start 03/15/17 at 19:00 Quetiapine Fumarate (SEROquel) 62.5 mg DAILY@1300 PO Last administered on 03/17 13:30; Start 03/16/17 at 13:00 Vitamin D (Vitamin D3) 50,000 unit WEEKLY PO Last administered on 03/15/17 20 :14; Start 03/15/17 at 19:00 Memantine (Namenda) 10 mg BID PO Last administered on 03/17/17 19:45; Start 03/17/17 at 21:00 Buspirone HCl (Buspar) 5 mg BID92 PO Last administered on 03/17/17 13:30; Start 03/17/17 at 14:00 Active Scripts Active Reported Lorazepam 0.5 Mg Tablet 0.25 Mg PO PRN Q2HR PRN MDD 2mg/24hrs Lactulose 10 Gm/15 Ml Solution 10 Gm PO DAILYWBKFT Depakote Sprinkle (Divalproex Sodium) 125 Mg Cap.sprink 375 Mg PO TID 0700, 1300 , 1900 Analgesic [place] (Methyl Salicylate/Menthol) 29 Gm Oint...g. 1 Applic TP QID PRN Milk Of Magnesia (Magnesium Hydroxide) 2,400 Mg/10 Ml Oral.susp 2,400 Mg PO HS PRN Mag-Al Plus Xs Suspension (Mag Hydrox/Al Hydrox/Simeth) 30 Ml Oral.susp 15 Ml PO QIDPRN PRN Tylenol (Acetaminophen) 325 Mg Tablet 650 Mg PO Q6HRS PRN Trazodone Hcl 50 Mg Tablet 100 Mg PO HS Quetiapine Fumarate 50 Mg Tablet 50 Mg PO TID 0700, 1300, 1900 Quetiapine Fumarate 100 Mg Tablet 100 Mg PO DAILY16 Namenda (Memantine Hcl) 10 Mg Tablet 10 Mg PO DAILY 10 Days Melatonin 3 Mg Tablet 3 Mg PO HS Esomeprazole Magnesium 20 Mg Capsule.dr 20 Mg PO DAILY Cymbalta (Duloxetine Hcl) 60 Mg Capsule.dr 60 Mg PO DAILY Cymbalta (Duloxetine Hcl) 30 Mg Capsule.dr 30 Mg PO HS Atorvastatin Calcium 10 Mg Tablet 10 Mg PO QHS I have reviewed the current psychotropics carefully including drug interactions. Risk benefit ratio favors no change other than as noted in my dictated progress note. Diagnosis: Problems: (1) Dementia with behavioral disturbance (2) DEMENTIA WITH LEWY BODIES (3) Lewy body dementia with behavioral disturbance (4) Anxiety disorder (5) Impulse control disorder (6) Dementia, vascular, with depression (7) Diabetes mellitus SOHAIL VELASQUEZ MD Mar 17, 2017 20:06
[2017-03-18 06:59] LABS: ALBUMIN 3.2 g/dL (3.4-5.0); ALBUMIN/GLOBULIN RATIO 0.9 (1.0-1.7); CALCIUM 9.2 mg/dL (8.5-10.1); CREATININE 1.2 mg/dL (0.7-1.3); GFR 59.9; MAGNESIUM 2.1 mg/dL (1.8-2.4); POTASSIUM 4.1 mmol/L (3.5-5.1); TOTAL BILIRUBIN 0.7 mg/dL (0.2-1.0); TOTAL PROTEIN 6.8 g/dL (6.4-8.2)
[2017-03-18] MEDS: QUEtiapine 25 MG TABLET. PO SCH ×2 (07:56→16:08)
[2017-03-18] MEDS: DIVALPROEX 125 MG CAP.SPRINK PO SCH ×2 (07:56→13:50)
[2017-03-18] MEDS: DULoxetine HCL 60 MG CAPSULE.DR PO SCH (07:56)
[2017-03-18] MEDS: busPIRone 5 MG TABLET. PO SCH ×2 (07:56→13:50)
[2017-03-18] MEDS: LACTULOSE 20 GM/30 ML SOLUTION. PO SCH (07:56)
[2017-03-18] MEDS: MEMANTINE 10 MG TABLET. PO SCH ×2 (07:57→19:28)
[2017-03-18] MEDS: PANTOPRAZOLE 40 MG TABLET. PO SCH (07:57)
[2017-03-18 08:01] LABS: BASO % 1 % (0-3); EOS # 0.1 x10^3/uL (0.0-0.7); EOS % 2 % (0-3); HEMATOCRIT 47.8 % (39.0-53.0); HEMOGLOBIN 16.6 g/dL (13.0-17.5); LYMPH # 2.7 x10^3/uL (1.0-4.8); LYMPH % 43 % (24-48); MEAN CORPUSCULAR HEMOGLOBIN 34 pg (25-35); MEAN CORPUSCULAR HGB CONC 35 g/dL (31-37); MEAN CORPUSCULAR VOLUME 97 fL (79-100); MONO # 0.5 x10^3/uL (0.0-1.1); MONO % 9 % (0-9); NEUT % 47 % (31-73); PLATELET COUNT 227 x10^3/uL (140-400); RED BLOOD COUNT 4.91 x10^6/uL (4.30-5.70); RED CELL DISTRIBUTION WIDTH 14.3 % (11.5-14.5); WHITE BLOOD COUNT 6.4 x10^3/uL (4.0-11.0)
[2017-03-18 10:12] VITALS: BP 97/57
[2017-03-18] MEDS: QUEtiapine 50 MG TABLET. PO SCH ×2 (13:50→19:00)
[2017-03-18 16:15] VITALS: BP 143/103
[2017-03-18] MEDS: DULoxetine HCL 30 MG CAPSULE.DR PO SCH (19:28)
[2017-03-18] MEDS: traZODone 50 MG TABLET. PO SCH (19:28)
[2017-03-18] MEDS: ATORVASTATIN CALCIUM 10 MG TABLET. PO SCH (19:29)
[2017-03-18] MEDS: MELATONIN 3 MG TABLET PO SCH (19:29)
--- NOTE | 2017-03-18 22:17 | PDOC ---
Exam Note: Irvin Note: Please also refer to the separate dictated note~for this date of service dictated separately.~Patient seen individually. Discussed the patient with Nursing staff reviewed the chart.~Reviewed interim history and current functioning. Reviewed vital signs,~Labs/ Radiology~and current medications noted below. Continue current treatment with the changes noted in the dictated addendum note Assessment: Vital Signs: Vital Signs Date Time Temp Pulse Resp B/P (MAP) Pulse Ox O2 Delivery O2 Flow Rate FiO2 03/18/17 16:15 97.5 98 21 143/103 (116) 95 03/18/17 10:12 Room Air 03/12/17 22:54 0.0 I&O Intake and Output 03/18/17 07:00 Intake Total 480 ml Balance 480 ml Intake Oral 480 ml # Voids 1 # Bowel Movements 1 Labs: Laboratory Tests Test 03/18/17 06:27 03/18/17 07:34 Sodium Level 145 mmol/L (136-145) Potassium Level 4.1 mmol/L (3.5-5.1) Chloride Level 106 mmol/L (98-107) Carbon Dioxide Level 32 mmol/L (21-32) Anion Gap 7 (6-14) Blood Urea Nitrogen 22 mg/dL (8-26) Creatinine 1.2 mg/dL (0.7-1.3) Estimated GFR (Cockcroft-Gault) 59.9 BUN/Creatinine Ratio 18 (6-20) Glucose Level 90 mg/dL (70-99) Calcium Level 9.2 mg/dL (8.5-10.1) Magnesium Level 2.1 mg/dL (1.8-2.4) Total Bilirubin 0.7 mg/dL (0.2-1.0) Aspartate Amino Transferase (AST) 26 U/L (15-37) Alanine Aminotransferase (ALT) 25 U/L (16-63) Alkaline Phosphatase 46 U/L (46-116) Total Protein 6.8 g/dL (6.4-8.2) Albumin 3.2 g/dL (3.4-5.0) L Albumin/Globulin Ratio 0.9 (1.0-1.7) L White Blood Count 6.4 x10^3/uL (4.0-11.0) Red Blood Count 4.91 x10^6/uL (4.30-5.70) Hemoglobin 16.6 g/dL (13.0-17.5) Hematocrit 47.8 % (39.0-53.0) Mean Corpuscular Volume 97 fL (79-100) Mean Corpuscular Hemoglobin 34 pg (25-35) Mean Corpuscular Hemoglobin Concent 35 g/dL (31-37) Red Cell Distribution Width 14.3 % (11.5-14.5) Platelet Count 227 x10^3/uL (140-400) Neutrophils (%) (Auto) 47 % (31-73) Lymphocytes (%) (Auto) 43 % (24-48) Monocytes (%) (Auto) 9 % (0-9) Eosinophils (%) (Auto) 2 % (0-3) Basophils (%) (Auto) 1 % (0-3) Neutrophils # (Auto) 3.0 x10^3uL (1.8-7.7) Lymphocytes # (Auto) 2.7 x10^3/uL (1.0-4.8) Monocytes # (Auto) 0.5 x10^3/uL (0.0-1.1) Eosinophils # (Auto) 0.1 x10^3/uL (0.0-0.7) Basophils # (Auto) 0.0 x10^3/uL (0.0-0.2) Current Medications: Meds: Current Medications Divalproex Sodium (Depakote Sprinkles) 375 mg TID@0700,1300,1900 PO Last administered on 03/13/17 18:27; Start 03/13/17 at 07:00; Stop 03/14/17 at 06 :35; Status DC Duloxetine HCl (Cymbalta) 30 mg HS PO Last administered on 03/18/17 19:28; Start 03/12/17 at 21:00 Duloxetine HCl (Cymbalta) 60 mg DAILY PO Last administered on 03/18/17 07:56 ; Start 03/13/17 at 09:00 Lorazepam (Ativan) 0.25 mg PRN Q2HR PRN PO ANXIETY / AGITATION Last administered on 03/16/17 19:18; Start 03/12/17 at 19:45 Memantine (Namenda) 10 mg DAILY PO Last administered on 03/17/17 07:32; Start 03/13/17 at 09:00; Stop 03/17/17 at 11:45; Status DC Quetiapine Fumarate (SEROquel) 50 mg TID@0700,1300,1900 PO Last administered on 03/13/17 18:27; Start 03/13/17 at 07:00; Stop 03/14/17 at 06:35; Status DC Quetiapine Fumarate (SEROquel) 100 mg DAILY16 PO Last administered on 16:08; Start 03/13/17 at 16:00 Trazodone HCl (Desyrel) 100 mg HS PO Last administered on 03/18/17 19:28; Start 03/12/17 at 21:00 Melatonin 3 mg QHS PO Last administered on 03/18/17 19:29; Start 03/12/17 at 21:00 Acetaminophen (Tylenol) 650 mg PRN Q6HRS PRN PO PAIN / TEMP; Start 03/12/17 at 20:15 Atorvastatin Calcium (Lipitor) 10 mg QHS PO Last administered on 03/18/17 19: 29; Start 03/12/17 at 21:00 Al Hydroxide/Mg Hydroxide (Mylanta Plus Xs) 15 ml QIDPRN PRN PO DYSPEPSIA; Start 03/12/17 at 20:15 Multi-Ingredient Ointment (Analgesic [place]) 1 shaila PRN QID PRN TP MUSCLE PAIN; Start 03/12/17 at 20:15 Pantoprazole Sodium (Protonix) 40 mg DAILYAC PO Last administered on 07:57; Start 03/13/17 at 07:30 Lactulose 10 gm DAILYWBKFT PO Last administered on 03/18/17 07:56; Start at 08:00 Non-Formulary Medication 2,400 mg PRN QHS PRN PO CONSTIPATION; Start 03/12/17 at 20:15; Stop 03/12/17 at 20:15; Status DC Magnesium Hydroxide (Milk Of Magnesia) 2,400 mg PRN QHS PRN PO CONSTIPATION Last administered on 03/16/17 22:03; Start 03/12/17 at 20:15 Divalproex Sodium (Depakote Sprinkles) 375 mg TID@0800,1300,1900 PO Last administered on 03/18/17 13:50; Start 03/14/17 at 08:00 Quetiapine Fumarate (SEROquel) 50 mg TID@0800,1300,1900 PO Last administered on 03/14/17 14:14; Start 03/14/17 at 08:00; Stop 03/14/17 at 18:33; Status DC Quetiapine Fumarate (SEROquel) 50 mg BID@1300,1900 PO Last administered on 12:48; Start 03/14/17 at 19:00; Stop 03/15/17 at 17:38; Status DC Quetiapine Fumarate (SEROquel) 62.5 mg DAILY08 PO Last administered on 07:56; Start 03/15/17 at 08:00 Olanzapine (ZyPREXA ZYDIS) 2.5 mg PRN Q2HR PRN PO PSYCHOSIS Last administered on 03/16/17 13:59; Start 03/15/17 at 08:00 Quetiapine Fumarate (SEROquel) 50 mg DAILY@1900 PO Last administered on 19:00; Start 03/15/17 at 19:00 Quetiapine Fumarate (SEROquel) 62.5 mg DAILY@1300 PO Last administered on 03/18 13:50; Start 03/16/17 at 13:00 Vitamin D (Vitamin D3) 50,000 unit WEEKLY PO Last administered on 03/15/17 20 :14; Start 03/15/17 at 19:00 Memantine (Namenda) 10 mg BID PO Last administered on 03/18/17 19:28; Start 03/17/17 at 21:00 Buspirone HCl (Buspar) 5 mg BID92 PO Last administered on 03/18/17 13:50; Start 03/17/17 at 14:00; Stop 03/18/17 at 18:05; Status DC Buspirone HCl (Buspar) 5 mg TID@0900,1300,1700 PO ; Start 03/19/17 at 09:00 Active Scripts Active Reported Lorazepam 0.5 Mg Tablet 0.25 Mg PO PRN Q2HR PRN MDD 2mg/24hrs Lactulose 10 Gm/15 Ml Solution 10 Gm PO DAILYWBKFT Depakote Sprinkle (Divalproex Sodium) 125 Mg Cap.sprink 375 Mg PO TID 0700, 1300 , 1900 Analgesic [place] (Methyl Salicylate/Menthol) 29 Gm Oint...g. 1 Applic TP QID PRN Milk Of Magnesia (Magnesium Hydroxide) 2,400 Mg/10 Ml Oral.susp 2,400 Mg PO HS PRN Mag-Al Plus Xs Suspension (Mag Hydrox/Al Hydrox/Simeth) 30 Ml Oral.susp 15 Ml PO QIDPRN PRN Tylenol (Acetaminophen) 325 Mg Tablet 650 Mg PO Q6HRS PRN Trazodone Hcl 50 Mg Tablet 100 Mg PO HS Quetiapine Fumarate 50 Mg Tablet 50 Mg PO TID 0700, 1300, 1900 Quetiapine Fumarate 100 Mg Tablet 100 Mg PO DAILY16 Namenda (Memantine Hcl) 10 Mg Tablet 10 Mg PO DAILY 10 Days Melatonin 3 Mg Tablet 3 Mg PO HS Esomeprazole Magnesium 20 Mg Capsule.dr 20 Mg PO DAILY Cymbalta (Duloxetine Hcl) 60 Mg Capsule.dr 60 Mg PO DAILY Cymbalta (Duloxetine Hcl) 30 Mg Capsule.dr 30 Mg PO HS Atorvastatin Calcium 10 Mg Tablet 10 Mg PO QHS I have reviewed the current psychotropics carefully including drug interactions. Risk benefit ratio favors no change other than as noted in my dictated progress note. Diagnosis: Problems: (1) Dementia with behavioral disturbance (2) DEMENTIA WITH LEWY BODIES (3) Lewy body dementia with behavioral disturbance (4) Anxiety disorder (5) Impulse control disorder (6) Dementia, vascular, with depression SOHAIL VELASQUEZ MD Mar 18, 2017 22:17
--- NOTE | 2017-03-19 00:41 | PN ---
DATE: 03/16/2017 This late entry, 03/16/2017, covers elements not covered in my initial note of 03/16/2017. SUBJECTIVE: I met with the patient the evening of 03/16/2017. Per nursing report, the patient has done a little better during the day, still confused, but less aggressive, wandering around the unit, restless, unable to sit long enough to eat, was yelling, agitated in the evening, received p.r.n. at 3:00 p.m. REVIEW OF SYSTEMS: No CV, , pulmonary, eye, ENT system symptoms on review. Reliability poor. MENTAL STATUS EXAM: Oriented to himself, pleasant, verbal, smiling as I met with him. Insight, judgment, recent and remote memory, attention, concentration, fund of knowledge poor, consistent with his diagnosis mentioned in my initial note. IMPRESSION: Major neurocognitive disorder, Lewy body with delusion, depression, behavioral disturbance. Rest unchanged. PLAN: Continue psychotropics mentioned in my initial note. Adjust as clinically indicated. MAN Ajit VELASQUEZ MD DR: CHRISTY/samara JOB#: [id number] / [id number]
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
[2017-03-19 05:38] VITALS: BP 136/88
[2017-03-19] MEDS: DULoxetine HCL 60 MG CAPSULE.DR PO SCH (07:36)
[2017-03-19] MEDS: QUEtiapine 25 MG TABLET. PO SCH ×2 (07:36→17:09)
[2017-03-19] MEDS: DIVALPROEX 125 MG CAP.SPRINK PO SCH ×4 (07:36→17:10)
[2017-03-19] MEDS: MEMANTINE 10 MG TABLET. PO SCH ×2 (07:36→19:09)
[2017-03-19] MEDS: PANTOPRAZOLE 40 MG TABLET. PO SCH (07:36)
[2017-03-19] MEDS: LACTULOSE 20 GM/30 ML SOLUTION. PO SCH (07:37)
[2017-03-19] MEDS: busPIRone 5 MG TABLET. PO SCH ×3 (07:40→17:08)
[2017-03-19] MEDS: LORazepam 0.5 MG TABLET PO PRN (12:10)
[2017-03-19] MEDS: QUEtiapine 50 MG TABLET. PO SCH ×2 (12:13→19:00)
[2017-03-19 16:00] VITALS: BP 120/86
[2017-03-19 16:06] VITALS: BP 120/86
[2017-03-19] MEDS: MELATONIN 3 MG TABLET PO SCH (19:09)
[2017-03-19] MEDS: traZODone 50 MG TABLET. PO SCH (19:09)
[2017-03-19] MEDS: ATORVASTATIN CALCIUM 10 MG TABLET. PO SCH (19:09)
[2017-03-19] MEDS: DULoxetine HCL 30 MG CAPSULE.DR PO SCH (19:09)
--- NOTE | 2017-03-19 21:23 | PDOC ---
Exam Note: Irvin Note: Please also refer to the separate dictated note~for this date of service dictated separately.~Patient seen individually. Discussed the patient with Nursing staff reviewed the chart.~Reviewed interim history and current functioning. Reviewed vital signs,~Labs/ Radiology~and current medications noted below. Continue current treatment with the changes noted in the dictated addendum note Assessment: Vital Signs: Vital Signs Date Time Temp Pulse Resp B/P (MAP) Pulse Ox O2 Delivery O2 Flow Rate FiO2 03/19/17 16:06 97.5 94 18 120/86 (97) 97 Room Air I&O Intake and Output 03/19/17 06:59 Intake Total 960 ml Balance 960 ml Intake Oral 960 ml # Voids 1 Current Medications: Meds: Current Medications Divalproex Sodium (Depakote Sprinkles) 375 mg TID@0700,1300,1900 PO Last administered on 03/13/17 18:27; Start 03/13/17 at 07:00; Stop 03/14/17 at 06 :35; Status DC Duloxetine HCl (Cymbalta) 30 mg HS PO Last administered on 03/19/17 19:09; Start 03/12/17 at 21:00 Duloxetine HCl (Cymbalta) 60 mg DAILY PO Last administered on 03/19/17 07:36 ; Start 03/13/17 at 09:00 Lorazepam (Ativan) 0.25 mg PRN Q2HR PRN PO ANXIETY / AGITATION Last administered on 03/19/17 12:10; Start 03/12/17 at 19:45 Memantine (Namenda) 10 mg DAILY PO Last administered on 03/17/17 07:32; Start 03/13/17 at 09:00; Stop 03/17/17 at 11:45; Status DC Quetiapine Fumarate (SEROquel) 50 mg TID@0700,1300,1900 PO Last administered on 03/13/17 18:27; Start 03/13/17 at 07:00; Stop 03/14/17 at 06:35; Status DC Quetiapine Fumarate (SEROquel) 100 mg DAILY16 PO Last administered on 17:09; Start 03/13/17 at 16:00 Trazodone HCl (Desyrel) 100 mg HS PO Last administered on 03/19/17 19:09; Start 03/12/17 at 21:00 Melatonin 3 mg QHS PO Last administered on 03/19/17 19:09; Start 03/12/17 at 21:00 Acetaminophen (Tylenol) 650 mg PRN Q6HRS PRN PO PAIN / TEMP; Start 03/12/17 at 20:15 Atorvastatin Calcium (Lipitor) 10 mg QHS PO Last administered on 03/19/17 19: 09; Start 03/12/17 at 21:00 Al Hydroxide/Mg Hydroxide (Mylanta Plus Xs) 15 ml QIDPRN PRN PO DYSPEPSIA; Start 03/12/17 at 20:15 Multi-Ingredient Ointment (Analgesic [place]) 1 shaila PRN QID PRN TP MUSCLE PAIN; Start 03/12/17 at 20:15 Pantoprazole Sodium (Protonix) 40 mg DAILYAC PO Last administered on 07:36; Start 03/13/17 at 07:30 Lactulose 10 gm DAILYWBKFT PO Last administered on 03/19/17 07:37; Start at 08:00 Non-Formulary Medication 2,400 mg PRN QHS PRN PO CONSTIPATION; Start 03/12/17 at 20:15; Stop 03/12/17 at 20:15; Status DC Magnesium Hydroxide (Milk Of Magnesia) 2,400 mg PRN QHS PRN PO CONSTIPATION Last administered on 03/16/17 22:03; Start 03/12/17 at 20:15 Divalproex Sodium (Depakote Sprinkles) 375 mg TID@0800,1300,1900 PO Last administered on 03/19/17 17:10; Start 03/14/17 at 08:00 Quetiapine Fumarate (SEROquel) 50 mg TID@0800,1300,1900 PO Last administered on 03/14/17 14:14; Start 03/14/17 at 08:00; Stop 03/14/17 at 18:33; Status DC Quetiapine Fumarate (SEROquel) 50 mg BID@1300,1900 PO Last administered on 12:48; Start 03/14/17 at 19:00; Stop 03/15/17 at 17:38; Status DC Quetiapine Fumarate (SEROquel) 62.5 mg DAILY08 PO Last administered on 07:36; Start 03/15/17 at 08:00 Olanzapine (ZyPREXA ZYDIS) 2.5 mg PRN Q2HR PRN PO PSYCHOSIS Last administered on 03/16/17 13:59; Start 03/15/17 at 08:00 Quetiapine Fumarate (SEROquel) 50 mg DAILY@1900 PO Last administered on 19:00; Start 03/15/17 at 19:00 Quetiapine Fumarate (SEROquel) 62.5 mg DAILY@1300 PO Last administered on 03/19 12:13; Start 03/16/17 at 13:00 Vitamin D (Vitamin D3) 50,000 unit WEEKLY PO Last administered on 03/15/17 20 :14; Start 03/15/17 at 19:00 Memantine (Namenda) 10 mg BID PO Last administered on 03/19/17 19:09; Start 03/17/17 at 21:00 Buspirone HCl (Buspar) 5 mg BID92 PO Last administered on 03/18/17 13:50; Start 03/17/17 at 14:00; Stop 03/18/17 at 18:05; Status DC Buspirone HCl (Buspar) 5 mg TID@0900,1300,1700 PO Last administered on 17:08; Start 03/19/17 at 09:00 Active Scripts Active Reported Lorazepam 0.5 Mg Tablet 0.25 Mg PO PRN Q2HR PRN MDD 2mg/24hrs Lactulose 10 Gm/15 Ml Solution 10 Gm PO DAILYWBKFT Depakote Sprinkle (Divalproex Sodium) 125 Mg Cap.sprink 375 Mg PO TID 0700, 1300 , 1900 Analgesic [place] (Methyl Salicylate/Menthol) 29 Gm Oint...g. 1 Applic TP QID PRN Milk Of Magnesia (Magnesium Hydroxide) 2,400 Mg/10 Ml Oral.susp 2,400 Mg PO HS PRN Mag-Al Plus Xs Suspension (Mag Hydrox/Al Hydrox/Simeth) 30 Ml Oral.susp 15 Ml PO QIDPRN PRN Tylenol (Acetaminophen) 325 Mg Tablet 650 Mg PO Q6HRS PRN Trazodone Hcl 50 Mg Tablet 100 Mg PO HS Quetiapine Fumarate 50 Mg Tablet 50 Mg PO TID 0700, 1300, 1900 Quetiapine Fumarate 100 Mg Tablet 100 Mg PO DAILY16 Namenda (Memantine Hcl) 10 Mg Tablet 10 Mg PO DAILY 10 Days Melatonin 3 Mg Tablet 3 Mg PO HS Esomeprazole Magnesium 20 Mg Capsule.dr 20 Mg PO DAILY Cymbalta (Duloxetine Hcl) 60 Mg Capsule.dr 60 Mg PO DAILY Cymbalta (Duloxetine Hcl) 30 Mg Capsule.dr 30 Mg PO HS Atorvastatin Calcium 10 Mg Tablet 10 Mg PO QHS I have reviewed the current psychotropics carefully including drug interactions. Risk benefit ratio favors no change other than as noted in my dictated progress note. Diagnosis: Problems: (1) Dementia with behavioral disturbance (2) DEMENTIA WITH LEWY BODIES (3) Lewy body dementia with behavioral disturbance (4) Anxiety disorder (5) Impulse control disorder (6) Dementia, vascular, with depression (7) Diabetes mellitus SOHAIL VELASQUEZ MD Mar 19, 2017 21:23
[2017-03-20 06:26] VITALS: BP 130/90
[2017-03-20] MEDS: LACTULOSE 20 GM/30 ML SOLUTION. PO SCH (07:45)
[2017-03-20] MEDS: busPIRone 5 MG TABLET. PO SCH ×4 (07:45→19:37)
[2017-03-20] MEDS: MEMANTINE 10 MG TABLET. PO SCH ×2 (07:45→19:36)
[2017-03-20] MEDS: PANTOPRAZOLE 40 MG TABLET. PO SCH (07:45)
[2017-03-20] MEDS: QUEtiapine 25 MG TABLET. PO SCH ×3 (07:45→17:49)
[2017-03-20] MEDS: DULoxetine HCL 60 MG CAPSULE.DR PO SCH (07:45)
[2017-03-20] MEDS: DIVALPROEX 125 MG CAP.SPRINK PO SCH ×3 (07:45→17:49)
[2017-03-20] MEDS: QUEtiapine 50 MG TABLET. PO SCH ×2 (12:16→17:53)
[2017-03-20 16:01] VITALS: BP 132/94
[2017-03-20] MEDS: DULoxetine HCL 30 MG CAPSULE.DR PO SCH (19:36)
[2017-03-20] MEDS: traZODone 50 MG TABLET. PO SCH (19:36)
[2017-03-20] MEDS: MELATONIN 3 MG TABLET PO SCH (19:36)
[2017-03-20] MEDS: ATORVASTATIN CALCIUM 10 MG TABLET. PO SCH (19:36)
--- NOTE | 2017-03-20 20:16 | PDOC ---
Exam Note: Irvin Note: Please also refer to the separate dictated note~for this date of service dictated separately.~Patient seen individually. Discussed the patient with Nursing staff reviewed the chart.~Reviewed interim history and current functioning. Reviewed vital signs,~Labs/ Radiology~and current medications noted below. Continue current treatment with the changes noted in the dictated addendum note Assessment: Vital Signs: Vital Signs Date Time Temp Pulse Resp B/P (MAP) Pulse Ox O2 Delivery O2 Flow Rate FiO2 03/20/17 16:01 97.6 83 18 132/94 (107) 94 03/19/17 16:06 Room Air I&O Intake and Output 03/20/17 07:00 Intake Total 720 ml Balance 720 ml Intake Oral 720 ml # Voids 1 # Bowel Movements 2 Current Medications: Meds: Current Medications Divalproex Sodium (Depakote Sprinkles) 375 mg TID@0700,1300,1900 PO Last administered on 03/13/17 18:27; Start 03/13/17 at 07:00; Stop 03/14/17 at 06 :35; Status DC Duloxetine HCl (Cymbalta) 30 mg HS PO Last administered on 03/20/17 19:36; Start 03/12/17 at 21:00 Duloxetine HCl (Cymbalta) 60 mg DAILY PO Last administered on 03/20/17 07:45 ; Start 03/13/17 at 09:00 Lorazepam (Ativan) 0.25 mg PRN Q2HR PRN PO ANXIETY / AGITATION Last administered on 03/19/17 12:10; Start 03/12/17 at 19:45 Memantine (Namenda) 10 mg DAILY PO Last administered on 03/17/17 07:32; Start 03/13/17 at 09:00; Stop 03/17/17 at 11:45; Status DC Quetiapine Fumarate (SEROquel) 50 mg TID@0700,1300,1900 PO Last administered on 03/13/17 18:27; Start 03/13/17 at 07:00; Stop 03/14/17 at 06:35; Status DC Quetiapine Fumarate (SEROquel) 100 mg DAILY16 PO Last administered on 16:00; Start 03/13/17 at 16:00 Trazodone HCl (Desyrel) 100 mg HS PO Last administered on 03/20/17 19:36; Start 03/12/17 at 21:00 Melatonin 3 mg QHS PO Last administered on 03/20/17 19:36; Start 03/12/17 at 21:00 Acetaminophen (Tylenol) 650 mg PRN Q6HRS PRN PO PAIN / TEMP; Start 03/12/17 at 20:15 Atorvastatin Calcium (Lipitor) 10 mg QHS PO Last administered on 03/20/17 19: 36; Start 03/12/17 at 21:00 Al Hydroxide/Mg Hydroxide (Mylanta Plus Xs) 15 ml QIDPRN PRN PO DYSPEPSIA; Start 03/12/17 at 20:15 Multi-Ingredient Ointment (Analgesic [place]) 1 shaila PRN QID PRN TP MUSCLE PAIN; Start 03/12/17 at 20:15 Pantoprazole Sodium (Protonix) 40 mg DAILYAC PO Last administered on 07:45; Start 03/13/17 at 07:30 Lactulose 10 gm DAILYWBKFT PO Last administered on 03/20/17 07:45; Start at 08:00 Non-Formulary Medication 2,400 mg PRN QHS PRN PO CONSTIPATION; Start 03/12/17 at 20:15; Stop 03/12/17 at 20:15; Status DC Magnesium Hydroxide (Milk Of Magnesia) 2,400 mg PRN QHS PRN PO CONSTIPATION Last administered on 03/16/17 22:03; Start 03/12/17 at 20:15 Divalproex Sodium (Depakote Sprinkles) 375 mg TID@0800,1300,1900 PO Last administered on 03/20/17 17:49; Start 03/14/17 at 08:00 Quetiapine Fumarate (SEROquel) 50 mg TID@0800,1300,1900 PO Last administered on 03/14/17 14:14; Start 03/14/17 at 08:00; Stop 03/14/17 at 18:33; Status DC Quetiapine Fumarate (SEROquel) 50 mg BID@1300,1900 PO Last administered on 12:48; Start 03/14/17 at 19:00; Stop 03/15/17 at 17:38; Status DC Quetiapine Fumarate (SEROquel) 62.5 mg DAILY08 PO Last administered on 17:49; Start 03/15/17 at 08:00 Olanzapine (ZyPREXA ZYDIS) 2.5 mg PRN Q2HR PRN PO PSYCHOSIS Last administered on 03/20/17 16:42; Start 03/15/17 at 08:00 Quetiapine Fumarate (SEROquel) 50 mg DAILY@1900 PO Last administered on 17:53; Start 03/15/17 at 19:00 Quetiapine Fumarate (SEROquel) 62.5 mg DAILY@1300 PO Last administered on 03/20 12:16; Start 03/16/17 at 13:00 Vitamin D (Vitamin D3) 50,000 unit WEEKLY PO Last administered on 03/15/17 20 :14; Start 03/15/17 at 19:00 Memantine (Namenda) 10 mg BID PO Last administered on 03/20/17 19:36; Start 03/17/17 at 21:00 Buspirone HCl (Buspar) 5 mg BID92 PO Last administered on 03/18/17 13:50; Start 03/17/17 at 14:00; Stop 03/18/17 at 18:05; Status DC Buspirone HCl (Buspar) 5 mg TID@0900,1300,1700 PO Last administered on 16:42; Start 03/19/17 at 09:00; Stop 03/20/17 at 18:37; Status DC Buspirone HCl (Buspar) 5 mg QID PO Last administered on 03/20/17 19:37; Start 03/20/17 at 21:00 Active Scripts Active Reported Lorazepam 0.5 Mg Tablet 0.25 Mg PO PRN Q2HR PRN MDD 2mg/24hrs Lactulose 10 Gm/15 Ml Solution 10 Gm PO DAILYWBKFT Depakote Sprinkle (Divalproex Sodium) 125 Mg Cap.sprink 375 Mg PO TID 0700, 1300 , 1900 Analgesic [place] (Methyl Salicylate/Menthol) 29 Gm Oint...g. 1 Applic TP QID PRN Milk Of Magnesia (Magnesium Hydroxide) 2,400 Mg/10 Ml Oral.susp 2,400 Mg PO HS PRN Mag-Al Plus Xs Suspension (Mag Hydrox/Al Hydrox/Simeth) 30 Ml Oral.susp 15 Ml PO QIDPRN PRN Tylenol (Acetaminophen) 325 Mg Tablet 650 Mg PO Q6HRS PRN Trazodone Hcl 50 Mg Tablet 100 Mg PO HS Quetiapine Fumarate 50 Mg Tablet 50 Mg PO TID 0700, 1300, 1900 Quetiapine Fumarate 100 Mg Tablet 100 Mg PO DAILY16 Namenda (Memantine Hcl) 10 Mg Tablet 10 Mg PO DAILY 10 Days Melatonin 3 Mg Tablet 3 Mg PO HS Esomeprazole Magnesium 20 Mg Capsule.dr 20 Mg PO DAILY Cymbalta (Duloxetine Hcl) 60 Mg Capsule.dr 60 Mg PO DAILY Cymbalta (Duloxetine Hcl) 30 Mg Capsule.dr 30 Mg PO HS Atorvastatin Calcium 10 Mg Tablet 10 Mg PO QHS I have reviewed the current psychotropics carefully including drug interactions. Risk benefit ratio favors no change other than as noted in my dictated progress note. Diagnosis: Problems: (1) Dementia with behavioral disturbance (2) DEMENTIA WITH LEWY BODIES (3) Lewy body dementia with behavioral disturbance (4) Anxiety disorder (5) Impulse control disorder (6) Dementia, vascular, with depression (7) Diabetes mellitus SOHAIL VELASQUEZ MD Mar 20, 2017 20:16
--- NOTE | 2017-03-21 00:29 | PN ---
DATE: This is a late entry, covers the elements not covered in my initial note 03/19/2017. SUBJECTIVE: I met with the patient individually in his room. He did better during the day, confused, agitated at lunch time, received p.r.n. Ativan, wandering, slept 5-3/4 hours the previous evening. REVIEW OF SYSTEMS: No CV, , pulmonary, eye, ENT system symptoms on review. Reliability poor. MENTAL STATUS EXAM: Oriented to himself. Insight, judgment, recent and remote memory, attention, concentration, fund of knowledge poor, consistent with his diagnosis as mentioned in my initial note. IMPRESSION: Major neurocognitive disorder, Lewy body with delusion, depression, behavioral disturbance. PLAN: Continue psychotropics as mentioned in my initial note. MAN Ajit VELASQUEZ MD DR: CHRISTY/samara JOB#: [id number] / [id number]
[2017-03-21] MEDS: LACTULOSE 20 GM/30 ML SOLUTION. PO SCH (07:30)
[2017-03-21] MEDS: PANTOPRAZOLE 40 MG TABLET. PO SCH (07:31)
[2017-03-21] MEDS: MEMANTINE 10 MG TABLET. PO SCH ×2 (07:32→19:05)
[2017-03-21] MEDS: DULoxetine HCL 60 MG CAPSULE.DR PO SCH (07:32)
[2017-03-21] MEDS: busPIRone 5 MG TABLET. PO SCH ×4 (07:32→19:05)
[2017-03-21] MEDS: DIVALPROEX 125 MG CAP.SPRINK PO SCH ×3 (07:32→18:01)
[2017-03-21] MEDS: QUEtiapine 50 MG TABLET. PO SCH ×2 (13:00→18:01)
[2017-03-21] MEDS: QUEtiapine 25 MG TABLET. PO SCH (15:58)
[2017-03-21 16:12] VITALS: BP 115/87
[2017-03-21] MEDS: DULoxetine HCL 30 MG CAPSULE.DR PO SCH (19:05)
[2017-03-21] MEDS: MELATONIN 3 MG TABLET PO SCH (19:05)
[2017-03-21] MEDS: ATORVASTATIN CALCIUM 10 MG TABLET. PO SCH (19:05)
[2017-03-21] MEDS: traZODone 50 MG TABLET. PO SCH (19:05)
--- NOTE | 2017-03-21 20:14 | PDOC ---
Exam Note: Irvin Note: Please also refer to the separate dictated note~for this date of service dictated separately.~Patient seen individually. Discussed the patient with Nursing staff reviewed the chart.~Reviewed interim history and current functioning. Reviewed vital signs,~Labs/ Radiology~and current medications noted below. Continue current treatment with the changes noted in the dictated addendum note Assessment: Vital Signs: Vital Signs Date Time Temp Pulse Resp B/P (MAP) Pulse Ox O2 Delivery O2 Flow Rate FiO2 03/21/17 16:12 97.7 71 20 115/87 (96) 96 Room Air I&O Intake and Output 03/21/17 06:59 Intake Total 600 ml Balance 600 ml Intake Oral 600 ml # Voids 1 # Bowel Movements 1 Current Medications: Meds: Current Medications Divalproex Sodium (Depakote Sprinkles) 375 mg TID@0700,1300,1900 PO Last administered on 03/13/17 18:27; Start 03/13/17 at 07:00; Stop 03/14/17 at 06 :35; Status DC Duloxetine HCl (Cymbalta) 30 mg HS PO Last administered on 03/21/17 19:05; Start 03/12/17 at 21:00 Duloxetine HCl (Cymbalta) 60 mg DAILY PO Last administered on 03/21/17 07:32 ; Start 03/13/17 at 09:00 Lorazepam (Ativan) 0.25 mg PRN Q2HR PRN PO ANXIETY / AGITATION Last administered on 03/19/17 12:10; Start 03/12/17 at 19:45 Memantine (Namenda) 10 mg DAILY PO Last administered on 03/17/17 07:32; Start 03/13/17 at 09:00; Stop 03/17/17 at 11:45; Status DC Quetiapine Fumarate (SEROquel) 50 mg TID@0700,1300,1900 PO Last administered on 03/13/17 18:27; Start 03/13/17 at 07:00; Stop 03/14/17 at 06:35; Status DC Quetiapine Fumarate (SEROquel) 100 mg DAILY16 PO Last administered on 15:58; Start 03/13/17 at 16:00 Trazodone HCl (Desyrel) 100 mg HS PO Last administered on 03/21/17 19:05; Start 03/12/17 at 21:00 Melatonin 3 mg QHS PO Last administered on 03/21/17 19:05; Start 03/12/17 at 21:00 Acetaminophen (Tylenol) 650 mg PRN Q6HRS PRN PO PAIN / TEMP; Start 03/12/17 at 20:15 Atorvastatin Calcium (Lipitor) 10 mg QHS PO Last administered on 03/21/17 19: 05; Start 03/12/17 at 21:00 Al Hydroxide/Mg Hydroxide (Mylanta Plus Xs) 15 ml QIDPRN PRN PO DYSPEPSIA; Start 03/12/17 at 20:15 Multi-Ingredient Ointment (Analgesic [place]) 1 shaila PRN QID PRN TP MUSCLE PAIN; Start 03/12/17 at 20:15 Pantoprazole Sodium (Protonix) 40 mg DAILYAC PO Last administered on 07:31; Start 03/13/17 at 07:30 Lactulose 10 gm DAILYWBKFT PO Last administered on 03/21/17 07:30; Start at 08:00 Non-Formulary Medication 2,400 mg PRN QHS PRN PO CONSTIPATION; Start 03/12/17 at 20:15; Stop 03/12/17 at 20:15; Status DC Magnesium Hydroxide (Milk Of Magnesia) 2,400 mg PRN QHS PRN PO CONSTIPATION Last administered on 03/16/17 22:03; Start 03/12/17 at 20:15 Divalproex Sodium (Depakote Sprinkles) 375 mg TID@0800,1300,1900 PO Last administered on 03/21/17 18:01; Start 03/14/17 at 08:00 Quetiapine Fumarate (SEROquel) 50 mg TID@0800,1300,1900 PO Last administered on 03/14/17 14:14; Start 03/14/17 at 08:00; Stop 03/14/17 at 18:33; Status DC Quetiapine Fumarate (SEROquel) 50 mg BID@1300,1900 PO Last administered on 12:48; Start 03/14/17 at 19:00; Stop 03/15/17 at 17:38; Status DC Quetiapine Fumarate (SEROquel) 62.5 mg DAILY08 PO Last administered on 17:49; Start 03/15/17 at 08:00 Olanzapine (ZyPREXA ZYDIS) 2.5 mg PRN Q2HR PRN PO PSYCHOSIS Last administered on 03/20/17 16:42; Start 03/15/17 at 08:00 Quetiapine Fumarate (SEROquel) 50 mg DAILY@1900 PO Last administered on 18:01; Start 03/15/17 at 19:00 Quetiapine Fumarate (SEROquel) 62.5 mg DAILY@1300 PO Last administered on 03/21 13:00; Start 03/16/17 at 13:00 Vitamin D (Vitamin D3) 50,000 unit WEEKLY PO Last administered on 03/15/17 20 :14; Start 03/15/17 at 19:00 Memantine (Namenda) 10 mg BID PO Last administered on 03/21/17 19:05; Start 03/17/17 at 21:00 Buspirone HCl (Buspar) 5 mg BID92 PO Last administered on 03/18/17 13:50; Start 03/17/17 at 14:00; Stop 03/18/17 at 18:05; Status DC Buspirone HCl (Buspar) 5 mg TID@0900,1300,1700 PO Last administered on 16:42; Start 03/19/17 at 09:00; Stop 03/20/17 at 18:37; Status DC Buspirone HCl (Buspar) 5 mg QID PO Last administered on 03/21/17 19:05; Start 03/20/17 at 21:00 Active Scripts Active Reported Lorazepam 0.5 Mg Tablet 0.25 Mg PO PRN Q2HR PRN MDD 2mg/24hrs Lactulose 10 Gm/15 Ml Solution 10 Gm PO DAILYWBKFT Depakote Sprinkle (Divalproex Sodium) 125 Mg Cap.sprink 375 Mg PO TID 0700, 1300 , 1900 Analgesic [place] (Methyl Salicylate/Menthol) 29 Gm Oint...g. 1 Applic TP QID PRN Milk Of Magnesia (Magnesium Hydroxide) 2,400 Mg/10 Ml Oral.susp 2,400 Mg PO HS PRN Mag-Al Plus Xs Suspension (Mag Hydrox/Al Hydrox/Simeth) 30 Ml Oral.susp 15 Ml PO QIDPRN PRN Tylenol (Acetaminophen) 325 Mg Tablet 650 Mg PO Q6HRS PRN Trazodone Hcl 50 Mg Tablet 100 Mg PO HS Quetiapine Fumarate 50 Mg Tablet 50 Mg PO TID 0700, 1300, 1900 Quetiapine Fumarate 100 Mg Tablet 100 Mg PO DAILY16 Namenda (Memantine Hcl) 10 Mg Tablet 10 Mg PO DAILY 10 Days Melatonin 3 Mg Tablet 3 Mg PO HS Esomeprazole Magnesium 20 Mg Capsule.dr 20 Mg PO DAILY Cymbalta (Duloxetine Hcl) 60 Mg Capsule.dr 60 Mg PO DAILY Cymbalta (Duloxetine Hcl) 30 Mg Capsule.dr 30 Mg PO HS Atorvastatin Calcium 10 Mg Tablet 10 Mg PO QHS I have reviewed the current psychotropics carefully including drug interactions. Risk benefit ratio favors no change other than as noted in my dictated progress note. Diagnosis: Problems: (1) Dementia with behavioral disturbance (2) DEMENTIA WITH LEWY BODIES (3) Lewy body dementia with behavioral disturbance (4) Anxiety disorder (5) Impulse control disorder (6) Dementia, vascular, with depression (7) Diabetes mellitus SOHAIL VELASQUEZ MD Mar 21, 2017 20:14
--- NOTE | 2017-03-21 21:55 | PN ---
DATE: 03/20/2017 This is a late entry for 03/20/2017 and covers the elements not covered in my initial note of 03/20/2017. SUBJECTIVE: I met with the patient the evening of 03/20/2017. The patient slept 5-1/4 hours previous evening, remains confused, tried to hit his during visit at 4:00 p.m., was tearful, received Zyprexa at 4:30, this seemed to help. REVIEW OF SYSTEMS: No CV, , pulmonary, eye, ENT system symptoms on review. Reliability poor. MENTAL STATUS EXAM: Oriented to himself. Insight, judgment, recent and remote memory, attention, concentration, fund of knowledge poor, consistent with his diagnoses. IMPRESSION: Major neurocognitive disorder, Alzheimer, vascular with depression, delusion, behavioral disturbance. PLAN: Continue psychotropics mentioned in my initial note. MAN Ajit VELASQUEZ MD DR: CHRISTY/samara JOB#: [id number] / [id number]
[2017-03-22 05:20] VITALS: BP 143/87
[2017-03-22] MEDS: DIVALPROEX 125 MG CAP.SPRINK PO SCH ×3 (07:37→18:25)
[2017-03-22] MEDS: LACTULOSE 20 GM/30 ML SOLUTION. PO SCH (07:37)
[2017-03-22] MEDS: MEMANTINE 10 MG TABLET. PO SCH ×2 (07:37→19:50)
[2017-03-22] MEDS: QUEtiapine 25 MG TABLET. PO SCH ×2 (07:37→16:09)
[2017-03-22] MEDS: busPIRone 5 MG TABLET. PO SCH ×4 (07:37→19:50)
[2017-03-22] MEDS: DULoxetine HCL 60 MG CAPSULE.DR PO SCH (07:37)
[2017-03-22] MEDS: PANTOPRAZOLE 40 MG TABLET. PO SCH (07:37)
[2017-03-22] MEDS: CHOLECALCIFEROL (VITAMIN D3) 50,000 UNIT CAPSULE PO SCH (07:39)
--- NOTE | 2017-03-22 07:59 | PN ---
DATE: 03/18/2017 This is a late entry, covers the elements not covered in my initial note, 03/18/2017. SUBJECTIVE: I met with the patient evening of 03/18/2017. The patient has been combative with cares and his lab draw in the morning. Rest of the day, he did better wandering, goes into the room of other patients and lies on the bed, oblivious of what he is doing. REVIEW OF SYSTEMS: No CV, , pulmonary, eye, ENT system symptoms on review. Reliability poor. MENTAL STATUS EXAM: Oriented to himself. Insight, judgment, recent and remote memory, attention, concentration, fund of knowledge poor, consistent with his diagnosis, pleasant, smiling as I met with him, referred to me as doctor, which is quite remarkable. LABORATORY DATA: Reviewed. IMPRESSION: Major neurocognitive disorder, Lewy body with delusion, depression, behavioral disturbance. Rest unchanged from initial note. PLAN: Increase BuSpar from 5 mg b.i.d. to 5 mg 3 times a day. Rest unchanged from initial note. MAN Ajit VELASQUEZ MD DR: CHRISTY/samara JOB#: [id number] / [id number]
[2017-03-22] MEDS: QUEtiapine 50 MG TABLET. PO SCH ×2 (13:00→18:25)
[2017-03-22 15:55] VITALS: BP 111/73
[2017-03-22] MEDS: MELATONIN 3 MG TABLET PO SCH (19:49)
[2017-03-22] MEDS: DULoxetine HCL 30 MG CAPSULE.DR PO SCH (19:50)
[2017-03-22] MEDS: ATORVASTATIN CALCIUM 10 MG TABLET. PO SCH (19:50)
[2017-03-22] MEDS: traZODone 50 MG TABLET. PO SCH (19:50)
[2017-03-22] MEDS: LORazepam 0.5 MG TABLET PO PRN (19:51)
--- NOTE | 2017-03-22 20:11 | PDOC ---
Exam Note: Irvin Note: Please also refer to the separate dictated note~for this date of service dictated separately.~Patient seen individually. Discussed the patient with Nursing staff reviewed the chart.~Reviewed interim history and current functioning. Reviewed vital signs,~Labs/ Radiology~and current medications noted below. Continue current treatment with the changes noted in the dictated addendum note Assessment: Vital Signs: Vital Signs Date Time Temp Pulse Resp B/P (MAP) Pulse Ox O2 Delivery O2 Flow Rate FiO2 03/22/17 15:55 97.0 89 20 111/73 (86) 98 03/21/17 16:12 Room Air I&O Intake and Output 03/22/17 07:00 Intake Total 700 ml Balance 700 ml Intake Oral 700 ml # Voids 1 Current Medications: Meds: Current Medications Divalproex Sodium (Depakote Sprinkles) 375 mg TID@0700,1300,1900 PO Last administered on 03/13/17 18:27; Start 03/13/17 at 07:00; Stop 03/14/17 at 06 :35; Status DC Duloxetine HCl (Cymbalta) 30 mg HS PO Last administered on 03/22/17 19:50; Start 03/12/17 at 21:00 Duloxetine HCl (Cymbalta) 60 mg DAILY PO Last administered on 03/22/17 07:37 ; Start 03/13/17 at 09:00 Lorazepam (Ativan) 0.25 mg PRN Q2HR PRN PO ANXIETY / AGITATION Last administered on 03/22/17 19:51; Start 03/12/17 at 19:45 Memantine (Namenda) 10 mg DAILY PO Last administered on 03/17/17 07:32; Start 03/13/17 at 09:00; Stop 03/17/17 at 11:45; Status DC Quetiapine Fumarate (SEROquel) 50 mg TID@0700,1300,1900 PO Last administered on 03/13/17 18:27; Start 03/13/17 at 07:00; Stop 03/14/17 at 06:35; Status DC Quetiapine Fumarate (SEROquel) 100 mg DAILY16 PO Last administered on 16:09; Start 03/13/17 at 16:00 Trazodone HCl (Desyrel) 100 mg HS PO Last administered on 03/22/17 19:50; Start 03/12/17 at 21:00 Melatonin 3 mg QHS PO Last administered on 03/22/17 19:49; Start 03/12/17 at 21:00 Acetaminophen (Tylenol) 650 mg PRN Q6HRS PRN PO PAIN / TEMP; Start 03/12/17 at 20:15 Atorvastatin Calcium (Lipitor) 10 mg QHS PO Last administered on 03/22/17 19: 50; Start 03/12/17 at 21:00 Al Hydroxide/Mg Hydroxide (Mylanta Plus Xs) 15 ml QIDPRN PRN PO DYSPEPSIA; Start 03/12/17 at 20:15 Multi-Ingredient Ointment (Analgesic [place]) 1 shaila PRN QID PRN TP MUSCLE PAIN; Start 03/12/17 at 20:15 Pantoprazole Sodium (Protonix) 40 mg DAILYAC PO Last administered on 07:37; Start 03/13/17 at 07:30 Lactulose 10 gm DAILYWBKFT PO Last administered on 03/22/17 07:37; Start at 08:00 Non-Formulary Medication 2,400 mg PRN QHS PRN PO CONSTIPATION; Start 03/12/17 at 20:15; Stop 03/12/17 at 20:15; Status DC Magnesium Hydroxide (Milk Of Magnesia) 2,400 mg PRN QHS PRN PO CONSTIPATION Last administered on 03/16/17 22:03; Start 03/12/17 at 20:15 Divalproex Sodium (Depakote Sprinkles) 375 mg TID@0800,1300,1900 PO Last administered on 03/22/17 18:25; Start 03/14/17 at 08:00 Quetiapine Fumarate (SEROquel) 50 mg TID@0800,1300,1900 PO Last administered on 03/14/17 14:14; Start 03/14/17 at 08:00; Stop 03/14/17 at 18:33; Status DC Quetiapine Fumarate (SEROquel) 50 mg BID@1300,1900 PO Last administered on 12:48; Start 03/14/17 at 19:00; Stop 03/15/17 at 17:38; Status DC Quetiapine Fumarate (SEROquel) 62.5 mg DAILY08 PO Last administered on 07:37; Start 03/15/17 at 08:00 Olanzapine (ZyPREXA ZYDIS) 2.5 mg PRN Q2HR PRN PO PSYCHOSIS Last administered on 03/20/17 16:42; Start 03/15/17 at 08:00 Quetiapine Fumarate (SEROquel) 50 mg DAILY@1900 PO Last administered on 18:25; Start 03/15/17 at 19:00 Quetiapine Fumarate (SEROquel) 62.5 mg DAILY@1300 PO Last administered on 03/22 13:00; Start 03/16/17 at 13:00 Vitamin D (Vitamin D3) 50,000 unit WEEKLY PO Last administered on 03/22/17 07 :39; Start 03/15/17 at 19:00 Memantine (Namenda) 10 mg BID PO Last administered on 03/22/17 19:50; Start 03/17/17 at 21:00 Buspirone HCl (Buspar) 5 mg BID92 PO Last administered on 03/18/17 13:50; Start 03/17/17 at 14:00; Stop 03/18/17 at 18:05; Status DC Buspirone HCl (Buspar) 5 mg TID@0900,1300,1700 PO Last administered on 16:42; Start 03/19/17 at 09:00; Stop 03/20/17 at 18:37; Status DC Buspirone HCl (Buspar) 5 mg QID PO Last administered on 03/22/17 19:50; Start 03/20/17 at 21:00 Active Scripts Active Reported Lorazepam 0.5 Mg Tablet 0.25 Mg PO PRN Q2HR PRN MDD 2mg/24hrs Lactulose 10 Gm/15 Ml Solution 10 Gm PO DAILYWBKFT Depakote Sprinkle (Divalproex Sodium) 125 Mg Cap.sprink 375 Mg PO TID 0700, 1300 , 1900 Analgesic [place] (Methyl Salicylate/Menthol) 29 Gm Oint...g. 1 Applic TP QID PRN Milk Of Magnesia (Magnesium Hydroxide) 2,400 Mg/10 Ml Oral.susp 2,400 Mg PO HS PRN Mag-Al Plus Xs Suspension (Mag Hydrox/Al Hydrox/Simeth) 30 Ml Oral.susp 15 Ml PO QIDPRN PRN Tylenol (Acetaminophen) 325 Mg Tablet 650 Mg PO Q6HRS PRN Trazodone Hcl 50 Mg Tablet 100 Mg PO HS Quetiapine Fumarate 50 Mg Tablet 50 Mg PO TID 0700, 1300, 1900 Quetiapine Fumarate 100 Mg Tablet 100 Mg PO DAILY16 Namenda (Memantine Hcl) 10 Mg Tablet 10 Mg PO DAILY 10 Days Melatonin 3 Mg Tablet 3 Mg PO HS Esomeprazole Magnesium 20 Mg Capsule.dr 20 Mg PO DAILY Cymbalta (Duloxetine Hcl) 60 Mg Capsule.dr 60 Mg PO DAILY Cymbalta (Duloxetine Hcl) 30 Mg Capsule.dr 30 Mg PO HS Atorvastatin Calcium 10 Mg Tablet 10 Mg PO QHS I have reviewed the current psychotropics carefully including drug interactions. Risk benefit ratio favors no change other than as noted in my dictated progress note. Diagnosis: Problems: (1) Dementia with behavioral disturbance (2) DEMENTIA WITH LEWY BODIES (3) Lewy body dementia with behavioral disturbance (4) Anxiety disorder (5) Impulse control disorder (6) Dementia, vascular, with depression (7) Diabetes mellitus SOHAIL VELASQUEZ MD Mar 22, 2017 20:11
[2017-03-23 05:11] VITALS: BP 119/80
[2017-03-23] MEDS: LACTULOSE 20 GM/30 ML SOLUTION. PO SCH (08:37)
[2017-03-23] MEDS: MEMANTINE 10 MG TABLET. PO SCH ×2 (08:37→20:06)
[2017-03-23] MEDS: busPIRone 5 MG TABLET. PO SCH ×4 (08:37→20:06)
[2017-03-23] MEDS: PANTOPRAZOLE 40 MG TABLET. PO SCH (08:37)
[2017-03-23] MEDS: DULoxetine HCL 60 MG CAPSULE.DR PO SCH (08:37)
[2017-03-23] MEDS: QUEtiapine 25 MG TABLET. PO SCH ×2 (08:37→16:44)
[2017-03-23] MEDS: DIVALPROEX 125 MG CAP.SPRINK PO SCH ×3 (08:37→19:14)
--- NOTE | 2017-03-23 12:16 | PN ---
DATE: 03/21/2017 PSYCHIATRIC PROGRESS NOTE This is a late entry 03/21/2017, covers elements not covered in my initial note 03/21/2017. SUBJECTIVE: I met with the patient the evening of 03/21/2017. The patient slept 8-1/4 hours previous evening, more drowsy, during the day very pleasant, not agitated. Otherwise, compliant redirectable. REVIEW OF SYSTEMS: No CV, , pulmonary, eye, ENT system symptoms on review. Reliability poor. MENTAL STATUS EXAM: Oriented to himself. Insight, judgment, recent and remote memory, attention, concentration, fund of knowledge poor, consistent with his diagnoses. I met with him while he was lying in bed of another patient. LABORATORY DATA: Reviewed. IMPRESSION: Major neurocognitive disorder, Lewy body with delusion, depression, behavioral disturbance. Rest unchanged. PLAN: Continue psychotropics mentioned in my initial note. MAN Ajit VELASQUEZ MD DR: CHRISTY/samara JOB#: [id number] / [id number]
[2017-03-23] MEDS: QUEtiapine 50 MG TABLET. PO SCH ×2 (13:00→19:00)
[2017-03-23 16:05] VITALS: BP 108/76
--- NOTE | 2017-03-23 19:54 | PDOC ---
Exam Note: Irvin Note: Please also refer to the separate dictated note~for this date of service dictated separately.~Patient seen individually. Discussed the patient with Nursing staff reviewed the chart.~Reviewed interim history and current functioning. Reviewed vital signs,~Labs/ Radiology~and current medications noted below. Continue current treatment with the changes noted in the dictated addendum note Assessment: Vital Signs: Vital Signs Date Time Temp Pulse Resp B/P (MAP) Pulse Ox O2 Delivery O2 Flow Rate FiO2 03/23/17 16:05 98.0 86 18 108/76 (87) 96 03/21/17 16:12 Room Air I&O Intake and Output 03/23/17 06:59 Intake Total 820 ml Balance 820 ml Intake Oral 820 ml # Voids 1 Current Medications: Meds: Current Medications Divalproex Sodium (Depakote Sprinkles) 375 mg TID@0700,1300,1900 PO Last administered on 03/13/17 18:27; Start 03/13/17 at 07:00; Stop 03/14/17 at 06 :35; Status DC Duloxetine HCl (Cymbalta) 30 mg HS PO Last administered on 03/22/17 19:50; Start 03/12/17 at 21:00 Duloxetine HCl (Cymbalta) 60 mg DAILY PO Last administered on 03/23/17 08:37 ; Start 03/13/17 at 09:00 Lorazepam (Ativan) 0.25 mg PRN Q2HR PRN PO ANXIETY / AGITATION Last administered on 03/22/17 19:51; Start 03/12/17 at 19:45 Memantine (Namenda) 10 mg DAILY PO Last administered on 03/17/17 07:32; Start 03/13/17 at 09:00; Stop 03/17/17 at 11:45; Status DC Quetiapine Fumarate (SEROquel) 50 mg TID@0700,1300,1900 PO Last administered on 03/13/17 18:27; Start 03/13/17 at 07:00; Stop 03/14/17 at 06:35; Status DC Quetiapine Fumarate (SEROquel) 100 mg DAILY16 PO Last administered on 16:44; Start 03/13/17 at 16:00 Trazodone HCl (Desyrel) 100 mg HS PO Last administered on 03/22/17 19:50; Start 03/12/17 at 21:00 Melatonin 3 mg QHS PO Last administered on 03/22/17 19:49; Start 03/12/17 at 21:00 Acetaminophen (Tylenol) 650 mg PRN Q6HRS PRN PO PAIN / TEMP; Start 03/12/17 at 20:15 Atorvastatin Calcium (Lipitor) 10 mg QHS PO Last administered on 03/22/17 19: 50; Start 03/12/17 at 21:00 Al Hydroxide/Mg Hydroxide (Mylanta Plus Xs) 15 ml QIDPRN PRN PO DYSPEPSIA; Start 03/12/17 at 20:15 Multi-Ingredient Ointment (Analgesic [place]) 1 shaila PRN QID PRN TP MUSCLE PAIN; Start 03/12/17 at 20:15 Pantoprazole Sodium (Protonix) 40 mg DAILYAC PO Last administered on 08:37; Start 03/13/17 at 07:30 Lactulose 10 gm DAILYWBKFT PO Last administered on 03/23/17 08:37; Start at 08:00 Non-Formulary Medication 2,400 mg PRN QHS PRN PO CONSTIPATION; Start 03/12/17 at 20:15; Stop 03/12/17 at 20:15; Status DC Magnesium Hydroxide (Milk Of Magnesia) 2,400 mg PRN QHS PRN PO CONSTIPATION Last administered on 03/16/17 22:03; Start 03/12/17 at 20:15 Divalproex Sodium (Depakote Sprinkles) 375 mg TID@0800,1300,1900 PO Last administered on 03/23/17 19:14; Start 03/14/17 at 08:00 Quetiapine Fumarate (SEROquel) 50 mg TID@0800,1300,1900 PO Last administered on 03/14/17 14:14; Start 03/14/17 at 08:00; Stop 03/14/17 at 18:33; Status DC Quetiapine Fumarate (SEROquel) 50 mg BID@1300,1900 PO Last administered on 12:48; Start 03/14/17 at 19:00; Stop 03/15/17 at 17:38; Status DC Quetiapine Fumarate (SEROquel) 62.5 mg DAILY08 PO Last administered on 08:37; Start 03/15/17 at 08:00 Olanzapine (ZyPREXA ZYDIS) 2.5 mg PRN Q2HR PRN PO PSYCHOSIS Last administered on 03/20/17 16:42; Start 03/15/17 at 08:00 Quetiapine Fumarate (SEROquel) 50 mg DAILY@1900 PO Last administered on 19:00; Start 03/15/17 at 19:00 Quetiapine Fumarate (SEROquel) 62.5 mg DAILY@1300 PO Last administered on 03/23 13:00; Start 03/16/17 at 13:00 Vitamin D (Vitamin D3) 50,000 unit WEEKLY PO Last administered on 03/22/17 07 :39; Start 03/15/17 at 19:00 Memantine (Namenda) 10 mg BID PO Last administered on 03/23/17 08:37; Start 03/17/17 at 21:00 Buspirone HCl (Buspar) 5 mg BID92 PO Last administered on 03/18/17 13:50; Start 03/17/17 at 14:00; Stop 03/18/17 at 18:05; Status DC Buspirone HCl (Buspar) 5 mg TID@0900,1300,1700 PO Last administered on 16:42; Start 03/19/17 at 09:00; Stop 03/20/17 at 18:37; Status DC Buspirone HCl (Buspar) 5 mg QID PO Last administered on 03/23/17 16:44; Start 03/20/17 at 21:00 Active Scripts Active Reported Lorazepam 0.5 Mg Tablet 0.25 Mg PO PRN Q2HR PRN MDD 2mg/24hrs Lactulose 10 Gm/15 Ml Solution 10 Gm PO DAILYWBKFT Depakote Sprinkle (Divalproex Sodium) 125 Mg Cap.sprink 375 Mg PO TID 0700, 1300 , 1900 Analgesic [place] (Methyl Salicylate/Menthol) 29 Gm Oint...g. 1 Applic TP QID PRN Milk Of Magnesia (Magnesium Hydroxide) 2,400 Mg/10 Ml Oral.susp 2,400 Mg PO HS PRN Mag-Al Plus Xs Suspension (Mag Hydrox/Al Hydrox/Simeth) 30 Ml Oral.susp 15 Ml PO QIDPRN PRN Tylenol (Acetaminophen) 325 Mg Tablet 650 Mg PO Q6HRS PRN Trazodone Hcl 50 Mg Tablet 100 Mg PO HS Quetiapine Fumarate 50 Mg Tablet 50 Mg PO TID 0700, 1300, 1900 Quetiapine Fumarate 100 Mg Tablet 100 Mg PO DAILY16 Namenda (Memantine Hcl) 10 Mg Tablet 10 Mg PO DAILY 10 Days Melatonin 3 Mg Tablet 3 Mg PO HS Esomeprazole Magnesium 20 Mg Capsule.dr 20 Mg PO DAILY Cymbalta (Duloxetine Hcl) 60 Mg Capsule.dr 60 Mg PO DAILY Cymbalta (Duloxetine Hcl) 30 Mg Capsule.dr 30 Mg PO HS Atorvastatin Calcium 10 Mg Tablet 10 Mg PO QHS I have reviewed the current psychotropics carefully including drug interactions. Risk benefit ratio favors no change other than as noted in my dictated progress note. Diagnosis: Problems: (1) Dementia with behavioral disturbance (2) DEMENTIA WITH LEWY BODIES (3) Lewy body dementia with behavioral disturbance (4) Anxiety disorder (5) Impulse control disorder (6) Dementia, vascular, with depression (7) Diabetes mellitus SOHAIL VELASQUEZ MD Mar 23, 2017 19:54
[2017-03-23] MEDS: DULoxetine HCL 30 MG CAPSULE.DR PO SCH (20:06)
[2017-03-23] MEDS: traZODone 50 MG TABLET. PO SCH (20:06)
[2017-03-23] MEDS: ATORVASTATIN CALCIUM 10 MG TABLET. PO SCH (20:06)
[2017-03-23] MEDS: MELATONIN 3 MG TABLET PO SCH (20:06)
[2017-03-24 06:07] VITALS: BP 138/85
[2017-03-24] MEDS: LACTULOSE 20 GM/30 ML SOLUTION. PO SCH (08:01)
[2017-03-24] MEDS: DIVALPROEX 125 MG CAP.SPRINK PO SCH ×3 (08:02→19:14)
[2017-03-24] MEDS: MEMANTINE 10 MG TABLET. PO SCH ×2 (08:02→19:57)
[2017-03-24] MEDS: DULoxetine HCL 60 MG CAPSULE.DR PO SCH (08:02)
[2017-03-24] MEDS: QUEtiapine 25 MG TABLET. PO SCH ×2 (08:02→16:32)
[2017-03-24] MEDS: PANTOPRAZOLE 40 MG TABLET. PO SCH (08:02)
[2017-03-24] MEDS: busPIRone 5 MG TABLET. PO SCH ×4 (08:02→19:57)
--- NOTE | 2017-03-24 09:03 | PN ---
DATE: 03/22/2017 This is a late entry for 03/22/2017 and covers elements not covered in my initial note of 03/22/2017. I met with the patient the evening of 03/22/2017. The patient remains confused, wanders into the room of other patients, lies in the bed, refused to shower previous evening and staff will administer PRNs before attempting ADLs and shower. REVIEW OF SYSTEMS: No CV, , pulmonary, eye, ENT system symptoms on review. Reliability poor. MENTAL STATUS EXAM: Oriented to himself. Insight, judgment, recent and remote memory, attention, concentration, fund of knowledge poor, consistent with his diagnosis. IMPRESSION: Major neurocognitive disorder, Lewy body with delusion, depression, behavioral disturbance. Rest unchanged. PLAN: Continue current psychotropics. BuSpar was recently increased. Continue Rest unchanged for now. MAN jAit VELASQUEZ MD DR: CHRISTY/samara JOB#: [id number] / [id number]
[2017-03-24 10:26] LABS: ALBUMIN/GLOBULIN RATIO 0.8 (1.0-1.7); ALK PHOS 40 U/L (46-116); ALT (SGPT) 28 U/L (16-63); ANION GAP 2 (6-14); AST (SGOT) 21 U/L (15-37); BLOOD UREA NITROGEN 25 mg/dL (8-26); BUN/CREATININE RATIO 19 (6-20); CARBON DIOXIDE 34 mmol/L (21-32); CHLORIDE 111 mmol/L (98-107); CREATININE 1.3 mg/dL (0.7-1.3); GFR 54.6; GLUCOSE 103 mg/dL (70-99); POTASSIUM 4.2 mmol/L (3.5-5.1); SODIUM 147 mmol/L (136-145); TOTAL BILIRUBIN 0.8 mg/dL (0.2-1.0); TOTAL PROTEIN 6.7 g/dL (6.4-8.2)
[2017-03-24 10:31] LABS: VAL ACID 61 mcg/mL (50-100)
[2017-03-24 10:41] LABS: BASO % 1 % (0-3); EOS # 0.1 x10^3/uL (0.0-0.7); EOS % 2 % (0-3); HEMATOCRIT 46.3 % (39.0-53.0); HEMOGLOBIN 15.6 g/dL (13.0-17.5); LYMPH # 2.2 x10^3/uL (1.0-4.8); LYMPH % 36 % (24-48); MEAN CORPUSCULAR HEMOGLOBIN 33 pg (25-35); MEAN CORPUSCULAR HGB CONC 34 g/dL (31-37); MEAN CORPUSCULAR VOLUME 97 fL (79-100); MONO # 0.5 x10^3/uL (0.0-1.1); MONO % 8 % (0-9); NEUT # 3.4 x10^3uL (1.8-7.7); NEUT % 54 % (31-73); PLATELET COUNT 228 x10^3/uL (140-400); RED BLOOD COUNT 4.77 x10^6/uL (4.30-5.70); RED CELL DISTRIBUTION WIDTH 14.7 % (11.5-14.5); WHITE BLOOD COUNT 6.2 x10^3/uL (4.0-11.0)
[2017-03-24] MEDS: QUEtiapine 50 MG TABLET. PO SCH ×2 (13:00→19:15)
[2017-03-24 16:05] VITALS: BP 98/64
[2017-03-24] MEDS: ATORVASTATIN CALCIUM 10 MG TABLET. PO SCH (19:57)
[2017-03-24] MEDS: MELATONIN 3 MG TABLET PO SCH (19:57)
[2017-03-24] MEDS: traZODone 50 MG TABLET. PO SCH (19:57)
[2017-03-24] MEDS: DULoxetine HCL 30 MG CAPSULE.DR PO SCH (19:57)
--- NOTE | 2017-03-24 19:59 | PDOC ---
Exam Note: Irvin Note: Please also refer to the separate dictated note~for this date of service dictated separately.~Patient seen individually. Discussed the patient with Nursing staff reviewed the chart.~Reviewed interim history and current functioning. Reviewed vital signs,~Labs/ Radiology~and current medications noted below. Continue current treatment with the changes noted in the dictated addendum note Assessment: Vital Signs: Vital Signs Date Time Temp Pulse Resp B/P (MAP) Pulse Ox O2 Delivery O2 Flow Rate FiO2 03/24/17 16:05 97.5 89 20 98/64 (75) 92 Room Air I&O Intake and Output 03/24/17 07:00 Intake Total 740 ml Balance 740 ml Intake Oral 740 ml # Voids 1 Labs: Laboratory Tests Test 03/24/17 10:05 White Blood Count 6.2 x10^3/uL (4.0-11.0) Red Blood Count 4.77 x10^6/uL (4.30-5.70) Hemoglobin 15.6 g/dL (13.0-17.5) Hematocrit 46.3 % (39.0-53.0) Mean Corpuscular Volume 97 fL (79-100) Mean Corpuscular Hemoglobin 33 pg (25-35) Mean Corpuscular Hemoglobin Concent 34 g/dL (31-37) Red Cell Distribution Width 14.7 % (11.5-14.5) H Platelet Count 228 x10^3/uL (140-400) Neutrophils (%) (Auto) 54 % (31-73) Lymphocytes (%) (Auto) 36 % (24-48) Monocytes (%) (Auto) 8 % (0-9) Eosinophils (%) (Auto) 2 % (0-3) Basophils (%) (Auto) 1 % (0-3) Neutrophils # (Auto) 3.4 x10^3uL (1.8-7.7) Lymphocytes # (Auto) 2.2 x10^3/uL (1.0-4.8) Monocytes # (Auto) 0.5 x10^3/uL (0.0-1.1) Eosinophils # (Auto) 0.1 x10^3/uL (0.0-0.7) Basophils # (Auto) 0.0 x10^3/uL (0.0-0.2) Sodium Level 147 mmol/L (136-145) H Potassium Level 4.2 mmol/L (3.5-5.1) Chloride Level 111 mmol/L (98-107) H Carbon Dioxide Level 34 mmol/L (21-32) H Anion Gap 2 (6-14) L Blood Urea Nitrogen 25 mg/dL (8-26) Creatinine 1.3 mg/dL (0.7-1.3) Estimated GFR (Cockcroft-Gault) 54.6 BUN/Creatinine Ratio 19 (6-20) Glucose Level 103 mg/dL (70-99) H Calcium Level 9.0 mg/dL (8.5-10.1) Magnesium Level 2.0 mg/dL (1.8-2.4) Total Bilirubin 0.8 mg/dL (0.2-1.0) Aspartate Amino Transferase (AST) 21 U/L (15-37) Alanine Aminotransferase (ALT) 28 U/L (16-63) Alkaline Phosphatase 40 U/L (46-116) L Total Protein 6.7 g/dL (6.4-8.2) Albumin 3.0 g/dL (3.4-5.0) L Albumin/Globulin Ratio 0.8 (1.0-1.7) L Valproic Acid Level 61 mcg/mL (50-100) Valproic Acid Last Dose Date 03/23/17 Valproic Acid Last Dose Time 2100 Current Medications: Meds: Current Medications Divalproex Sodium (Depakote Sprinkles) 375 mg TID@0700,1300,1900 PO Last administered on 03/13/17 18:27; Start 03/13/17 at 07:00; Stop 03/14/17 at 06 :35; Status DC Duloxetine HCl (Cymbalta) 30 mg HS PO Last administered on 03/24/17 19:57; Start 03/12/17 at 21:00 Duloxetine HCl (Cymbalta) 60 mg DAILY PO Last administered on 03/24/17 08:02 ; Start 03/13/17 at 09:00 Lorazepam (Ativan) 0.25 mg PRN Q2HR PRN PO ANXIETY / AGITATION Last administered on 03/22/17 19:51; Start 03/12/17 at 19:45 Memantine (Namenda) 10 mg DAILY PO Last administered on 03/17/17 07:32; Start 03/13/17 at 09:00; Stop 03/17/17 at 11:45; Status DC Quetiapine Fumarate (SEROquel) 50 mg TID@0700,1300,1900 PO Last administered on 03/13/17 18:27; Start 03/13/17 at 07:00; Stop 03/14/17 at 06:35; Status DC Quetiapine Fumarate (SEROquel) 100 mg DAILY16 PO Last administered on 16:32; Start 03/13/17 at 16:00 Trazodone HCl (Desyrel) 100 mg HS PO Last administered on 03/24/17 19:57; Start 03/12/17 at 21:00 Melatonin 3 mg QHS PO Last administered on 03/24/17 19:57; Start 03/12/17 at 21:00 Acetaminophen (Tylenol) 650 mg PRN Q6HRS PRN PO PAIN / TEMP; Start 03/12/17 at 20:15 Atorvastatin Calcium (Lipitor) 10 mg QHS PO Last administered on 03/24/17 19: 57; Start 03/12/17 at 21:00 Al Hydroxide/Mg Hydroxide (Mylanta Plus Xs) 15 ml QIDPRN PRN PO DYSPEPSIA; Start 03/12/17 at 20:15 Multi-Ingredient Ointment (Analgesic [place]) 1 shaila PRN QID PRN TP MUSCLE PAIN; Start 03/12/17 at 20:15 Pantoprazole Sodium (Protonix) 40 mg DAILYAC PO Last administered on 08:02; Start 03/13/17 at 07:30 Lactulose 10 gm DAILYWBKFT PO Last administered on 03/24/17 08:01; Start at 08:00 Non-Formulary Medication 2,400 mg PRN QHS PRN PO CONSTIPATION; Start 03/12/17 at 20:15; Stop 03/12/17 at 20:15; Status DC Magnesium Hydroxide (Milk Of Magnesia) 2,400 mg PRN QHS PRN PO CONSTIPATION Last administered on 03/16/17 22:03; Start 03/12/17 at 20:15 Divalproex Sodium (Depakote Sprinkles) 375 mg TID@0800,1300,1900 PO Last administered on 03/24/17 19:14; Start 03/14/17 at 08:00 Quetiapine Fumarate (SEROquel) 50 mg TID@0800,1300,1900 PO Last administered on 03/14/17 14:14; Start 03/14/17 at 08:00; Stop 03/14/17 at 18:33; Status DC Quetiapine Fumarate (SEROquel) 50 mg BID@1300,1900 PO Last administered on 12:48; Start 03/14/17 at 19:00; Stop 03/15/17 at 17:38; Status DC Quetiapine Fumarate (SEROquel) 62.5 mg DAILY08 PO Last administered on 08:02; Start 03/15/17 at 08:00 Olanzapine (ZyPREXA ZYDIS) 2.5 mg PRN Q2HR PRN PO PSYCHOSIS Last administered on 03/20/17 16:42; Start 03/15/17 at 08:00 Quetiapine Fumarate (SEROquel) 50 mg DAILY@1900 PO Last administered on 19:15; Start 03/15/17 at 19:00 Quetiapine Fumarate (SEROquel) 62.5 mg DAILY@1300 PO Last administered on 03/24 13:00; Start 03/16/17 at 13:00 Vitamin D (Vitamin D3) 50,000 unit WEEKLY PO Last administered on 03/22/17 07 :39; Start 03/15/17 at 19:00 Memantine (Namenda) 10 mg BID PO Last administered on 03/24/17 19:57; Start 03/17/17 at 21:00 Buspirone HCl (Buspar) 5 mg BID92 PO Last administered on 03/18/17 13:50; Start 03/17/17 at 14:00; Stop 03/18/17 at 18:05; Status DC Buspirone HCl (Buspar) 5 mg TID@0900,1300,1700 PO Last administered on 16:42; Start 03/19/17 at 09:00; Stop 03/20/17 at 18:37; Status DC Buspirone HCl (Buspar) 5 mg QID PO Last administered on 03/24/17t 19:57; Start 03/20/17 at 21:00 Active Scripts Active Reported Lorazepam 0.5 Mg Tablet 0.25 Mg PO PRN Q2HR PRN MDD 2mg/24hrs Lactulose 10 Gm/15 Ml Solution 10 Gm PO DAILYWBKFT Depakote Sprinkle (Divalproex Sodium) 125 Mg Cap.sprink 375 Mg PO TID 0700, 1300 , 1900 Analgesic [place] (Methyl Salicylate/Menthol) 29 Gm Oint...g. 1 Applic TP QID PRN Milk Of Magnesia (Magnesium Hydroxide) 2,400 Mg/10 Ml Oral.susp 2,400 Mg PO HS PRN Mag-Al Plus Xs Suspension (Mag Hydrox/Al Hydrox/Simeth) 30 Ml Oral.susp 15 Ml PO QIDPRN PRN Tylenol (Acetaminophen) 325 Mg Tablet 650 Mg PO Q6HRS PRN Trazodone Hcl 50 Mg Tablet 100 Mg PO HS Quetiapine Fumarate 50 Mg Tablet 50 Mg PO TID 0700, 1300, 1900 Quetiapine Fumarate 100 Mg Tablet 100 Mg PO DAILY16 Namenda (Memantine Hcl) 10 Mg Tablet 10 Mg PO DAILY 10 Days Melatonin 3 Mg Tablet 3 Mg PO HS Esomeprazole Magnesium 20 Mg Capsule.dr 20 Mg PO DAILY Cymbalta (Duloxetine Hcl) 60 Mg Capsule.dr 60 Mg PO DAILY Cymbalta (Duloxetine Hcl) 30 Mg Capsule.dr 30 Mg PO HS Atorvastatin Calcium 10 Mg Tablet 10 Mg PO QHS I have reviewed the current psychotropics carefully including drug interactions. Risk benefit ratio favors no change other than as noted in my dictated progress note. Diagnosis: Problems: (1) Dementia with behavioral disturbance (2) DEMENTIA WITH LEWY BODIES (3) Lewy body dementia with behavioral disturbance (4) Anxiety disorder (5) Impulse control disorder (6) Dementia, vascular, with depression (7) Diabetes mellitus SOHAIL VELASQUEZ MD Mar 24, 2017 19:59
[2017-03-24] MEDS: LORazepam 0.5 MG TABLET PO PRN (20:00)
[2017-03-25 06:00] VITALS: BP 135/88
[2017-03-25] MEDS: LACTULOSE 20 GM/30 ML SOLUTION. PO SCH (07:34)
[2017-03-25] MEDS: busPIRone 5 MG TABLET. PO SCH ×4 (07:34→20:54)
[2017-03-25] MEDS: MEMANTINE 10 MG TABLET. PO SCH ×2 (07:35→20:54)
[2017-03-25] MEDS: DIVALPROEX 125 MG CAP.SPRINK PO SCH ×3 (07:35→19:16)
[2017-03-25] MEDS: QUEtiapine 25 MG TABLET. PO SCH ×2 (07:35→16:48)
[2017-03-25] MEDS: PANTOPRAZOLE 40 MG TABLET. PO SCH (07:35)
[2017-03-25] MEDS: DULoxetine HCL 60 MG CAPSULE.DR PO SCH (07:36)
[2017-03-25] MEDS: QUEtiapine 50 MG TABLET. PO SCH ×2 (13:12→19:16)
[2017-03-25 16:02] VITALS: BP 100/62
[2017-03-25] MEDS: MAGNESIUM HYDROXIDE 2,400 MG/30 ML ORAL.SUSP. PO PRN (16:49)
--- NOTE | 2017-03-25 17:52 | PDOC ---
Exam Note: Irvin Note: Please also refer to the separate dictated note~for this date of service dictated separately.~Patient seen individually. Discussed the patient with Nursing staff reviewed the chart.~Reviewed interim history and current functioning. Reviewed vital signs,~Labs/ Radiology~and current medications noted below. Continue current treatment with the changes noted in the dictated addendum note Assessment: Vital Signs: Vital Signs Date Time Temp Pulse Resp B/P (MAP) Pulse Ox O2 Delivery O2 Flow Rate FiO2 03/25/17 16:02 98.2 74 18 100/62 (75) 94 03/24/17 16:05 Room Air I&O Intake and Output 03/25/17 06:59 Intake Total 780 ml Balance 780 ml Intake Oral 780 ml Current Medications: Meds: Current Medications Divalproex Sodium (Depakote Sprinkles) 375 mg TID@0700,1300,1900 PO Last administered on 03/13/17 18:27; Start 03/13/17 at 07:00; Stop 03/14/17 at 06 :35; Status DC Duloxetine HCl (Cymbalta) 30 mg HS PO Last administered on 03/24/17 19:57; Start 03/12/17 at 21:00 Duloxetine HCl (Cymbalta) 60 mg DAILY PO Last administered on 03/25/17 07:36 ; Start 03/13/17 at 09:00 Lorazepam (Ativan) 0.25 mg PRN Q2HR PRN PO ANXIETY / AGITATION Last administered on 03/24/17 20:00; Start 03/12/17 at 19:45 Memantine (Namenda) 10 mg DAILY PO Last administered on 03/17/17 07:32; Start 03/13/17 at 09:00; Stop 03/17/17 at 11:45; Status DC Quetiapine Fumarate (SEROquel) 50 mg TID@0700,1300,1900 PO Last administered on 03/13/17 18:27; Start 03/13/17 at 07:00; Stop 03/14/17 at 06:35; Status DC Quetiapine Fumarate (SEROquel) 100 mg DAILY16 PO Last administered on 16:48; Start 03/13/17 at 16:00 Trazodone HCl (Desyrel) 100 mg HS PO Last administered on 03/24/17 19:57; Start 03/12/17 at 21:00 Melatonin 3 mg QHS PO Last administered on 03/24/17 19:57; Start 03/12/17 at 21:00 Acetaminophen (Tylenol) 650 mg PRN Q6HRS PRN PO PAIN / TEMP; Start 03/12/17 at 20:15 Atorvastatin Calcium (Lipitor) 10 mg QHS PO Last administered on 03/24/17 19: 57; Start 03/12/17 at 21:00 Al Hydroxide/Mg Hydroxide (Mylanta Plus Xs) 15 ml QIDPRN PRN PO DYSPEPSIA; Start 03/12/17 at 20:15 Multi-Ingredient Ointment (Analgesic [place]) 1 shaila PRN QID PRN TP MUSCLE PAIN; Start 03/12/17 at 20:15 Pantoprazole Sodium (Protonix) 40 mg DAILYAC PO Last administered on 07:35; Start 03/13/17 at 07:30 Lactulose 10 gm DAILYWBKFT PO Last administered on 03/25/17 07:34; Start at 08:00 Non-Formulary Medication 2,400 mg PRN QHS PRN PO CONSTIPATION; Start 03/12/17 at 20:15; Stop 03/12/17 at 20:15; Status DC Magnesium Hydroxide (Milk Of Magnesia) 2,400 mg PRN QHS PRN PO CONSTIPATION Last administered on 03/25/17 16:49; Start 03/12/17 at 20:15 Divalproex Sodium (Depakote Sprinkles) 375 mg TID@0800,1300,1900 PO Last administered on 03/25/17 13:12; Start 03/14/17 at 08:00 Quetiapine Fumarate (SEROquel) 50 mg TID@0800,1300,1900 PO Last administered on 03/14/17 14:14; Start 03/14/17 at 08:00; Stop 03/14/17 at 18:33; Status DC Quetiapine Fumarate (SEROquel) 50 mg BID@1300,1900 PO Last administered on 12:48; Start 03/14/17 at 19:00; Stop 03/15/17 at 17:38; Status DC Quetiapine Fumarate (SEROquel) 62.5 mg DAILY08 PO Last administered on 07:35; Start 03/15/17 at 08:00 Olanzapine (ZyPREXA ZYDIS) 2.5 mg PRN Q2HR PRN PO PSYCHOSIS Last administered on 03/20/17 16:42; Start 03/15/17 at 08:00 Quetiapine Fumarate (SEROquel) 50 mg DAILY@1900 PO Last administered on 19:15; Start 03/15/17 at 19:00 Quetiapine Fumarate (SEROquel) 62.5 mg DAILY@1300 PO Last administered on 03/25 13:12; Start 03/16/17 at 13:00 Vitamin D (Vitamin D3) 50,000 unit WEEKLY PO Last administered on 03/22/17 07 :39; Start 03/15/17 at 19:00 Memantine (Namenda) 10 mg BID PO Last administered on 03/25/17 07:35; Start 03/17/17 at 21:00 Buspirone HCl (Buspar) 5 mg BID92 PO Last administered on 03/18/17 13:50; Start 03/17/17 at 14:00; Stop 03/18/17 at 18:05; Status DC Buspirone HCl (Buspar) 5 mg TID@0900,1300,1700 PO Last administered on 16:42; Start 03/19/17 at 09:00; Stop 03/20/17 at 18:37; Status DC Buspirone HCl (Buspar) 5 mg QID PO Last administered on 03/25/17 16:48; Start 03/20/17 at 21:00 Active Scripts Active Reported Lorazepam 0.5 Mg Tablet 0.25 Mg PO PRN Q2HR PRN MDD 2mg/24hrs Lactulose 10 Gm/15 Ml Solution 10 Gm PO DAILYWBKFT Depakote Sprinkle (Divalproex Sodium) 125 Mg Cap.sprink 375 Mg PO TID 0700, 1300 , 1900 Analgesic [place] (Methyl Salicylate/Menthol) 29 Gm Oint...g. 1 Applic TP QID PRN Milk Of Magnesia (Magnesium Hydroxide) 2,400 Mg/10 Ml Oral.susp 2,400 Mg PO HS PRN Mag-Al Plus Xs Suspension (Mag Hydrox/Al Hydrox/Simeth) 30 Ml Oral.susp 15 Ml PO QIDPRN PRN Tylenol (Acetaminophen) 325 Mg Tablet 650 Mg PO Q6HRS PRN Trazodone Hcl 50 Mg Tablet 100 Mg PO HS Quetiapine Fumarate 50 Mg Tablet 50 Mg PO TID 0700, 1300, 1900 Quetiapine Fumarate 100 Mg Tablet 100 Mg PO DAILY16 Namenda (Memantine Hcl) 10 Mg Tablet 10 Mg PO DAILY 10 Days Melatonin 3 Mg Tablet 3 Mg PO HS Esomeprazole Magnesium 20 Mg Capsule.dr 20 Mg PO DAILY Cymbalta (Duloxetine Hcl) 60 Mg Capsule.dr 60 Mg PO DAILY Cymbalta (Duloxetine Hcl) 30 Mg Capsule.dr 30 Mg PO HS Atorvastatin Calcium 10 Mg Tablet 10 Mg PO QHS I have reviewed the current psychotropics carefully including drug interactions. Risk benefit ratio favors no change other than as noted in my dictated progress note. Diagnosis: Problems: (1) Dementia, vascular, with depression (2) Impulse control disorder (3) Anxiety disorder (4) Lewy body dementia with behavioral disturbance (5) DEMENTIA WITH LEWY BODIES (6) Dementia with behavioral disturbance SOHAIL VELASQUEZ MD Mar 25, 2017 17:52
--- NOTE | 2017-03-25 19:56 | PDOC ---
Exam Note: Irvin Note: Please also refer to the separate dictated note~for this date of service dictated separately.~Patient seen individually. Discussed the patient with Nursing staff reviewed the chart.~Reviewed interim history and current functioning. Reviewed vital signs,~Labs/ Radiology~and current medications noted below. Continue current treatment with the changes noted in the dictated addendum note Assessment: Vital Signs: Vital Signs Date Time Temp Pulse Resp B/P (MAP) Pulse Ox O2 Delivery O2 Flow Rate FiO2 03/25/17 16:02 98.2 74 18 100/62 (75) 94 03/24/17 16:05 Room Air I&O Intake and Output 03/25/17 07:00 Intake Total 780 ml Balance 780 ml Intake Oral 780 ml Current Medications: Meds: Current Medications Divalproex Sodium (Depakote Sprinkles) 375 mg TID@0700,1300,1900 PO Last administered on 03/13/17 18:27; Start 03/13/17 at 07:00; Stop 03/14/17 at 06 :35; Status DC Duloxetine HCl (Cymbalta) 30 mg HS PO Last administered on 03/24/17 19:57; Start 03/12/17 at 21:00 Duloxetine HCl (Cymbalta) 60 mg DAILY PO Last administered on 03/25/17 07:36 ; Start 03/13/17 at 09:00; Stop 03/25/17 at 18:14; Status DC Lorazepam (Ativan) 0.25 mg PRN Q2HR PRN PO ANXIETY / AGITATION Last administered on 03/24/17 20:00; Start 03/12/17 at 19:45 Memantine (Namenda) 10 mg DAILY PO Last administered on 03/17/17 07:32; Start 03/13/17 at 09:00; Stop 03/17/17 at 11:45; Status DC Quetiapine Fumarate (SEROquel) 50 mg TID@0700,1300,1900 PO Last administered on 03/13/17 18:27; Start 03/13/17 at 07:00; Stop 03/14/17 at 06:35; Status DC Quetiapine Fumarate (SEROquel) 100 mg DAILY16 PO Last administered on 16:48; Start 03/13/17 at 16:00 Trazodone HCl (Desyrel) 100 mg HS PO Last administered on 03/24/17 19:57; Start 03/12/17 at 21:00 Melatonin 3 mg QHS PO Last administered on 03/24/17 19:57; Start 03/12/17 at 21:00 Acetaminophen (Tylenol) 650 mg PRN Q6HRS PRN PO PAIN / TEMP; Start 03/12/17 at 20:15 Atorvastatin Calcium (Lipitor) 10 mg QHS PO Last administered on 03/24/17 19: 57; Start 03/12/17 at 21:00 Al Hydroxide/Mg Hydroxide (Mylanta Plus Xs) 15 ml QIDPRN PRN PO DYSPEPSIA; Start 03/12/17 at 20:15 Multi-Ingredient Ointment (Analgesic [place]) 1 shaila PRN QID PRN TP MUSCLE PAIN; Start 03/12/17 at 20:15 Pantoprazole Sodium (Protonix) 40 mg DAILYAC PO Last administered on 07:35; Start 03/13/17 at 07:30 Lactulose 10 gm DAILYWBKFT PO Last administered on 03/25/17 07:34; Start at 08:00 Non-Formulary Medication 2,400 mg PRN QHS PRN PO CONSTIPATION; Start 03/12/17 at 20:15; Stop 03/12/17 at 20:15; Status DC Magnesium Hydroxide (Milk Of Magnesia) 2,400 mg PRN QHS PRN PO CONSTIPATION Last administered on 03/25/17 16:49; Start 03/12/17 at 20:15 Divalproex Sodium (Depakote Sprinkles) 375 mg TID@0800,1300,1900 PO Last administered on 03/25/17 19:16; Start 03/14/17 at 08:00 Quetiapine Fumarate (SEROquel) 50 mg TID@0800,1300,1900 PO Last administered on 03/14/17 14:14; Start 03/14/17 at 08:00; Stop 03/14/17 at 18:33; Status DC Quetiapine Fumarate (SEROquel) 50 mg BID@1300,1900 PO Last administered on 12:48; Start 03/14/17 at 19:00; Stop 03/15/17 at 17:38; Status DC Quetiapine Fumarate (SEROquel) 62.5 mg DAILY08 PO Last administered on 07:35; Start 03/15/17 at 08:00 Olanzapine (ZyPREXA ZYDIS) 2.5 mg PRN Q2HR PRN PO PSYCHOSIS Last administered on 03/20/17 16:42; Start 03/15/17 at 08:00 Quetiapine Fumarate (SEROquel) 50 mg DAILY@1900 PO Last administered on 19:16; Start 03/15/17 at 19:00 Quetiapine Fumarate (SEROquel) 62.5 mg DAILY@1300 PO Last administered on 03/25 13:12; Start 03/16/17 at 13:00 Vitamin D (Vitamin D3) 50,000 unit WEEKLY PO Last administered on 03/22/17 07 :39; Start 03/15/17 at 19:00 Memantine (Namenda) 10 mg BID PO Last administered on 03/25/17 07:35; Start 03/17/17 at 21:00 Buspirone HCl (Buspar) 5 mg BID92 PO Last administered on 03/18/17 13:50; Start 03/17/17 at 14:00; Stop 03/18/17 at 18:05; Status DC Buspirone HCl (Buspar) 5 mg TID@0900,1300,1700 PO Last administered on 16:42; Start 03/19/17 at 09:00; Stop 03/20/17 at 18:37; Status DC Buspirone HCl (Buspar) 5 mg QID PO Last administered on 03/25/17 16:48; Start 03/20/17 at 21:00 Sertraline HCl (Zoloft) 75 mg DAILY PO ; Start 03/26/17 at 09:00 Active Scripts Active Reported Lorazepam 0.5 Mg Tablet 0.25 Mg PO PRN Q2HR PRN MDD 2mg/24hrs Lactulose 10 Gm/15 Ml Solution 10 Gm PO DAILYWBKFT Depakote Sprinkle (Divalproex Sodium) 125 Mg Cap.sprink 375 Mg PO TID 0700, 1300 , 1900 Analgesic [place] (Methyl Salicylate/Menthol) 29 Gm Oint...g. 1 Applic TP QID PRN Milk Of Magnesia (Magnesium Hydroxide) 2,400 Mg/10 Ml Oral.susp 2,400 Mg PO HS PRN Mag-Al Plus Xs Suspension (Mag Hydrox/Al Hydrox/Simeth) 30 Ml Oral.susp 15 Ml PO QIDPRN PRN Tylenol (Acetaminophen) 325 Mg Tablet 650 Mg PO Q6HRS PRN Trazodone Hcl 50 Mg Tablet 100 Mg PO HS Quetiapine Fumarate 50 Mg Tablet 50 Mg PO TID 0700, 1300, 1900 Quetiapine Fumarate 100 Mg Tablet 100 Mg PO DAILY16 Namenda (Memantine Hcl) 10 Mg Tablet 10 Mg PO DAILY 10 Days Melatonin 3 Mg Tablet 3 Mg PO HS Esomeprazole Magnesium 20 Mg Capsule.dr 20 Mg PO DAILY Cymbalta (Duloxetine Hcl) 60 Mg Capsule.dr 60 Mg PO DAILY Cymbalta (Duloxetine Hcl) 30 Mg Capsule.dr 30 Mg PO HS Atorvastatin Calcium 10 Mg Tablet 10 Mg PO QHS I have reviewed the current psychotropics carefully including drug interactions. Risk benefit ratio favors no change other than as noted in my dictated progress note. Diagnosis: Problems: (1) Dementia with behavioral disturbance (2) DEMENTIA WITH LEWY BODIES (3) Lewy body dementia with behavioral disturbance (4) Anxiety disorder (5) Impulse control disorder (6) Dementia, vascular, with depression (7) Diabetes mellitus SOHAIL VELASQUEZ MD Mar 25, 2017 19:56
[2017-03-25] MEDS: DULoxetine HCL 30 MG CAPSULE.DR PO SCH (20:49)
[2017-03-25] MEDS: MELATONIN 3 MG TABLET PO SCH (20:53)
[2017-03-25] MEDS: traZODone 50 MG TABLET. PO SCH (20:54)
[2017-03-25] MEDS: ATORVASTATIN CALCIUM 10 MG TABLET. PO SCH (20:54)
[2017-03-26] MEDS: LORazepam 0.5 MG TABLET PO PRN (00:44)
[2017-03-26 06:07] VITALS: BP 127/81
[2017-03-26] MEDS: LACTULOSE 20 GM/30 ML SOLUTION. PO SCH (07:44)
[2017-03-26] MEDS: PANTOPRAZOLE 40 MG TABLET. PO SCH (07:45)
[2017-03-26] MEDS: DIVALPROEX 125 MG CAP.SPRINK PO SCH ×3 (07:45→18:06)
[2017-03-26] MEDS: busPIRone 5 MG TABLET. PO SCH ×4 (07:45→19:54)
[2017-03-26] MEDS: MEMANTINE 10 MG TABLET. PO SCH ×2 (07:45→19:54)
[2017-03-26] MEDS: QUEtiapine 25 MG TABLET. PO SCH ×2 (07:45→16:00)
[2017-03-26] MEDS: SERTRALINE 25 MG TABLET. PO SCH (07:47)
--- NOTE | 2017-03-26 10:48 | PN ---
DATE: 03/24/2017 This late entry 03/24/2017 covers elements not covered in my initial note 03/24/2017. SUBJECTIVE: I met with the patient evening of 03/24/2017 and the patient was staffed at a treatment team meeting with the entire team morning of 03/24/2016. The patient's attended the conference as well. The patient is sleeping 5-7 hours, remains confused, but doing better, has finger foods for his meals. Discussed with Tish, his , about his diagnosis, reviewed past history, discussed placement options. REVIEW OF SYSTEMS: No CV, , pulmonary, eye, ENT system symptoms on review. Reliability poor. MENTAL STATUS EXAM: Oriented to himself. Insight, judgment, recent and remote memory, attention, concentration, fund of knowledge poor, consistent with his diagnosis mentioned in my initial note. IMPRESSION: Major neurocognitive disorder, Lewy body with delusion, depression, behavioral disturbance. Rest unchanged. PLAN: Continue psychotropics mentioned in my initial note. MAN Ajit VELASQUEZ MD DR: CHRISTY/samara JOB#: [id number] / [id number]
--- NOTE | 2017-03-26 11:03 | PN ---
DATE: 03/23/2017 PSYCHIATRIC PROGRESS NOTE This is a late entry for 03/23/2017 and covers the elements not covered in my initial note of 03/23/2017. SUBJECTIVE: I met with the patient in the evening of 03/23/2017. The patient remains confused, ambulates around the unit, gets into other patient's beds, but redirects. No active hallucinations or aggression noted. REVIEW OF SYSTEMS: No CV, , pulmonary, eye, ENT system symptoms on review. Reliability poor. MENTAL STATUS EXAM: Oriented to himself, pleasant, smiling as I met with him. Insight, judgment, recent and remote memory, attention, concentration, fund of knowledge poor, consistent with his diagnosis mentioned in my initial note. IMPRESSION: Major Neurocognitive disorder, Lewy body with delusion, depression, behavioral disturbance. PLAN: He has done better with Ativan p.r.n. We will continue rest of the psychotropics unchanged for now. Give it another day or two before deciding on further adjustment. MAN Ajit VELASQUEZ MD DR: CHRISTY/samara JOB#: [id number] / [id number]
[2017-03-26] MEDS: QUEtiapine 50 MG TABLET. PO SCH ×2 (12:46→18:07)
[2017-03-26 15:53] VITALS: BP 112/68
--- NOTE | 2017-03-26 19:05 | PDOC ---
Exam Note: Irvin Note: Please also refer to the separate dictated note~for this date of service dictated separately.~Patient seen individually. Discussed the patient with Nursing staff reviewed the chart.~Reviewed interim history and current functioning. Reviewed vital signs,~Labs/ Radiology~and current medications noted below. Continue current treatment with the changes noted in the dictated addendum note Assessment: Vital Signs: Vital Signs Date Time Temp Pulse Resp B/P (MAP) Pulse Ox O2 Delivery O2 Flow Rate FiO2 03/26/17 15:53 98.1 102 16 112/68 (83) 94 03/24/17 16:05 Room Air I&O Intake and Output 03/26/17 06:59 Intake Total 540 ml Balance 540 ml Intake Oral 540 ml Current Medications: Meds: Current Medications Divalproex Sodium (Depakote Sprinkles) 375 mg TID@0700,1300,1900 PO Last administered on 03/13/17 18:27; Start 03/13/17 at 07:00; Stop 03/14/17 at 06 :35; Status DC Duloxetine HCl (Cymbalta) 30 mg HS PO Last administered on 03/25/17 20:49; Start 03/12/17 at 21:00 Duloxetine HCl (Cymbalta) 60 mg DAILY PO Last administered on 03/25/17 07:36 ; Start 03/13/17 at 09:00; Stop 03/25/17 at 18:14; Status DC Lorazepam (Ativan) 0.25 mg PRN Q2HR PRN PO ANXIETY / AGITATION Last administered on 03/26/17 00:44; Start 03/12/17 at 19:45 Memantine (Namenda) 10 mg DAILY PO Last administered on 03/17/17 07:32; Start 03/13/17 at 09:00; Stop 03/17/17 at 11:45; Status DC Quetiapine Fumarate (SEROquel) 50 mg TID@0700,1300,1900 PO Last administered on 03/13/17 18:27; Start 03/13/17 at 07:00; Stop 03/14/17 at 06:35; Status DC Quetiapine Fumarate (SEROquel) 100 mg DAILY16 PO Last administered on 16:00; Start 03/13/17 at 16:00 Trazodone HCl (Desyrel) 100 mg HS PO Last administered on 03/25/17 20:54; Start 03/12/17 at 21:00 Melatonin 3 mg QHS PO Last administered on 03/25/17 20:53; Start 03/12/17 at 21:00 Acetaminophen (Tylenol) 650 mg PRN Q6HRS PRN PO PAIN / TEMP; Start 03/12/17 at 20:15 Atorvastatin Calcium (Lipitor) 10 mg QHS PO Last administered on 03/25/17 20: 54; Start 03/12/17 at 21:00 Al Hydroxide/Mg Hydroxide (Mylanta Plus Xs) 15 ml QIDPRN PRN PO DYSPEPSIA; Start 03/12/17 at 20:15 Multi-Ingredient Ointment (Analgesic [place]) 1 shaila PRN QID PRN TP MUSCLE PAIN; Start 03/12/17 at 20:15 Pantoprazole Sodium (Protonix) 40 mg DAILYAC PO Last administered on 07:45; Start 03/13/17 at 07:30 Lactulose 10 gm DAILYWBKFT PO Last administered on 03/26/17 07:44; Start at 08:00 Non-Formulary Medication 2,400 mg PRN QHS PRN PO CONSTIPATION; Start 03/12/17 at 20:15; Stop 03/12/17 at 20:15; Status DC Magnesium Hydroxide (Milk Of Magnesia) 2,400 mg PRN QHS PRN PO CONSTIPATION Last administered on 03/25/17 16:49; Start 03/12/17 at 20:15 Divalproex Sodium (Depakote Sprinkles) 375 mg TID@0800,1300,1900 PO Last administered on 03/26/17 18:06; Start 03/14/17 at 08:00 Quetiapine Fumarate (SEROquel) 50 mg TID@0800,1300,1900 PO Last administered on 03/14/17 14:14; Start 03/14/17 at 08:00; Stop 03/14/17 at 18:33; Status DC Quetiapine Fumarate (SEROquel) 50 mg BID@1300,1900 PO Last administered on 12:48; Start 03/14/17 at 19:00; Stop 03/15/17 at 17:38; Status DC Quetiapine Fumarate (SEROquel) 62.5 mg DAILY08 PO Last administered on 07:45; Start 03/15/17 at 08:00 Olanzapine (ZyPREXA ZYDIS) 2.5 mg PRN Q2HR PRN PO PSYCHOSIS Last administered on 03/26/17 12:04; Start 03/15/17 at 08:00 Quetiapine Fumarate (SEROquel) 50 mg DAILY@1900 PO Last administered on 18:07; Start 03/15/17 at 19:00 Quetiapine Fumarate (SEROquel) 62.5 mg DAILY@1300 PO Last administered on 03/26 12:46; Start 03/16/17 at 13:00 Vitamin D (Vitamin D3) 50,000 unit WEEKLY PO Last administered on 03/22/17 07 :39; Start 03/15/17 at 19:00 Memantine (Namenda) 10 mg BID PO Last administered on 03/26/17 07:45; Start 03/17/17 at 21:00 Buspirone HCl (Buspar) 5 mg BID92 PO Last administered on 03/18/17 13:50; Start 03/17/17 at 14:00; Stop 03/18/17 at 18:05; Status DC Buspirone HCl (Buspar) 5 mg TID@0900,1300,1700 PO Last administered on 16:42; Start 03/19/17 at 09:00; Stop 03/20/17 at 18:37; Status DC Buspirone HCl (Buspar) 5 mg QID PO Last administered on 03/26/17 16:24; Start 03/20/17 at 21:00 Sertraline HCl (Zoloft) 75 mg DAILY PO Last administered on 03/26/17 07:47; Start 03/26/17 at 09:00 Active Scripts Active Reported Lorazepam 0.5 Mg Tablet 0.25 Mg PO PRN Q2HR PRN MDD 2mg/24hrs Lactulose 10 Gm/15 Ml Solution 10 Gm PO DAILYWBKFT Depakote Sprinkle (Divalproex Sodium) 125 Mg Cap.sprink 375 Mg PO TID 0700, 1300 , 1900 Analgesic [place] (Methyl Salicylate/Menthol) 29 Gm Oint...g. 1 Applic TP QID PRN Milk Of Magnesia (Magnesium Hydroxide) 2,400 Mg/10 Ml Oral.susp 2,400 Mg PO HS PRN Mag-Al Plus Xs Suspension (Mag Hydrox/Al Hydrox/Simeth) 30 Ml Oral.susp 15 Ml PO QIDPRN PRN Tylenol (Acetaminophen) 325 Mg Tablet 650 Mg PO Q6HRS PRN Trazodone Hcl 50 Mg Tablet 100 Mg PO HS Quetiapine Fumarate 50 Mg Tablet 50 Mg PO TID 0700, 1300, 1900 Quetiapine Fumarate 100 Mg Tablet 100 Mg PO DAILY16 Namenda (Memantine Hcl) 10 Mg Tablet 10 Mg PO DAILY 10 Days Melatonin 3 Mg Tablet 3 Mg PO HS Esomeprazole Magnesium 20 Mg Capsule.dr 20 Mg PO DAILY Cymbalta (Duloxetine Hcl) 60 Mg Capsule.dr 60 Mg PO DAILY Cymbalta (Duloxetine Hcl) 30 Mg Capsule.dr 30 Mg PO HS Atorvastatin Calcium 10 Mg Tablet 10 Mg PO QHS I have reviewed the current psychotropics carefully including drug interactions. Risk benefit ratio favors no change other than as noted in my dictated progress note. Diagnosis: Problems: (1) Dementia, vascular, with depression (2) Impulse control disorder (3) Anxiety disorder (4) Lewy body dementia with behavioral disturbance (5) DEMENTIA WITH LEWY BODIES SOHAIL VELASQUEZ MD Mar 26, 2017 19:05
[2017-03-26] MEDS: DULoxetine HCL 30 MG CAPSULE.DR PO SCH (19:53)
[2017-03-26] MEDS: ATORVASTATIN CALCIUM 10 MG TABLET. PO SCH (19:54)
[2017-03-26] MEDS: MELATONIN 3 MG TABLET PO SCH (19:54)
[2017-03-26] MEDS: traZODone 50 MG TABLET. PO SCH (19:54)
[2017-03-27 01:12] VITALS: BP 123/86
[2017-03-27 06:07] VITALS: BP 117/82
[2017-03-27] MEDS: LACTULOSE 20 GM/30 ML SOLUTION. PO SCH (07:37)
[2017-03-27] MEDS: QUEtiapine 25 MG TABLET. PO SCH ×2 (07:37→17:39)
[2017-03-27] MEDS: busPIRone 5 MG TABLET. PO SCH ×4 (07:37→20:38)
[2017-03-27] MEDS: MEMANTINE 10 MG TABLET. PO SCH ×2 (07:37→20:38)
[2017-03-27] MEDS: DIVALPROEX 125 MG CAP.SPRINK PO SCH ×4 (07:38→17:39)
[2017-03-27] MEDS: PANTOPRAZOLE 40 MG TABLET. PO SCH (07:38)
[2017-03-27] MEDS: SERTRALINE 25 MG TABLET. PO SCH (07:38)
--- NOTE | 2017-03-27 09:56 | PN ---
DATE: 03/25/2017 This late entry, 03/25/2017, covers elements not covered in my initial note of 03/25/2017. SUBJECTIVE: I met with the patient the evening of 03/25/2017. The patient is somewhat tired during the day, disorganized, constipated, received milk of mag. Does better if he gets Ativan prior to cares and then is less agitated. He tends to chew his Cymbalta and we will go ahead and change it to Zoloft 75 mg a day. REVIEW OF SYSTEMS: No CV, , pulmonary, eye, ENT system symptoms on review. MENTAL STATUS EXAM: Oriented to himself, pleasant, smiling as I met with him, oblivious of circumstances. Insight, judgment, recent and remote memory, attention, concentration, fund of knowledge poor, consistent with his diagnosis mentioned in my initial note. IMPRESSION: Major neurocognitive disorder, Alzheimer, vascular with depression, delusion, behavioral disturbance. Rest unchanged. PLAN: Continue psychotropics mentioned in my initial note. Adjust further as clinically indicated. MAN Ajit VELASQUEZ MD DR: CHRISTY/samara JOB#: [id number] / [id number]
[2017-03-27] MEDS: QUEtiapine 50 MG TABLET. PO SCH ×3 (13:00→17:40)
[2017-03-27 15:58] VITALS: BP 134/91
--- NOTE | 2017-03-27 20:22 | PDOC ---
Exam Note: Irvin Note: Please also refer to the separate dictated note~for this date of service dictated separately.~Patient seen individually. Discussed the patient with Nursing staff reviewed the chart.~Reviewed interim history and current functioning. Reviewed vital signs,~Labs/ Radiology~and current medications noted below. Continue current treatment with the changes noted in the dictated addendum note Assessment: Vital Signs: Vital Signs Date Time Temp Pulse Resp B/P (MAP) Pulse Ox O2 Delivery O2 Flow Rate FiO2 03/27/17 15:58 98.4 65 18 134/91 (105) 95 03/27/17 01:12 Room Air I&O Intake and Output 03/27/17 07:00 Intake Total 480 ml Balance 480 ml Intake Oral 480 ml # Voids 1 Current Medications: Meds: Current Medications Divalproex Sodium (Depakote Sprinkles) 375 mg TID@0700,1300,1900 PO Last administered on 03/13/17 18:27; Start 03/13/17 at 07:00; Stop 03/14/17 at 06 :35; Status DC Duloxetine HCl (Cymbalta) 30 mg HS PO Last administered on 03/26/17 19:53; Start 03/12/17 at 21:00; Stop 03/27/17 at 11:19; Status DC Duloxetine HCl (Cymbalta) 60 mg DAILY PO Last administered on 03/25/17 07:36 ; Start 03/13/17 at 09:00; Stop 03/25/17 at 18:14; Status DC Lorazepam (Ativan) 0.25 mg PRN Q2HR PRN PO ANXIETY / AGITATION Last administered on 03/26/17 00:44; Start 03/12/17 at 19:45 Memantine (Namenda) 10 mg DAILY PO Last administered on 03/17/17 07:32; Start 03/13/17 at 09:00; Stop 03/17/17 at 11:45; Status DC Quetiapine Fumarate (SEROquel) 50 mg TID@0700,1300,1900 PO Last administered on 03/13/17 18:27; Start 03/13/17 at 07:00; Stop 03/14/17 at 06:35; Status DC Quetiapine Fumarate (SEROquel) 100 mg DAILY16 PO Last administered on 17:39; Start 03/13/17 at 16:00 Trazodone HCl (Desyrel) 100 mg HS PO Last administered on 03/26/17 19:54; Start 03/12/17 at 21:00 Melatonin 3 mg QHS PO Last administered on 03/26/17 19:54; Start 03/12/17 at 21:00 Acetaminophen (Tylenol) 650 mg PRN Q6HRS PRN PO PAIN / TEMP; Start 03/12/17 at 20:15 Atorvastatin Calcium (Lipitor) 10 mg QHS PO Last administered on 03/26/17 19: 54; Start 03/12/17 at 21:00 Al Hydroxide/Mg Hydroxide (Mylanta Plus Xs) 15 ml QIDPRN PRN PO DYSPEPSIA; Start 03/12/17 at 20:15 Multi-Ingredient Ointment (Analgesic [place]) 1 shaila PRN QID PRN TP MUSCLE PAIN; Start 03/12/17 at 20:15 Pantoprazole Sodium (Protonix) 40 mg DAILYAC PO Last administered on 07:38; Start 03/13/17 at 07:30 Lactulose 10 gm DAILYWBKFT PO Last administered on 03/27/17 07:37; Start at 08:00 Non-Formulary Medication 2,400 mg PRN QHS PRN PO CONSTIPATION; Start 03/12/17 at 20:15; Stop 03/12/17 at 20:15; Status DC Magnesium Hydroxide (Milk Of Magnesia) 2,400 mg PRN QHS PRN PO CONSTIPATION Last administered on 03/25/17 16:49; Start 03/12/17 at 20:15 Divalproex Sodium (Depakote Sprinkles) 375 mg TID@0800,1300,1900 PO Last administered on 03/27/17 07:38; Start 03/14/17 at 08:00 Quetiapine Fumarate (SEROquel) 50 mg TID@0800,1300,1900 PO Last administered on 03/14/17 14:14; Start 03/14/17 at 08:00; Stop 03/14/17 at 18:33; Status DC Quetiapine Fumarate (SEROquel) 50 mg BID@1300,1900 PO Last administered on 12:48; Start 03/14/17 at 19:00; Stop 03/15/17 at 17:38; Status DC Quetiapine Fumarate (SEROquel) 62.5 mg DAILY08 PO Last administered on 07:37; Start 03/15/17 at 08:00 Olanzapine (ZyPREXA ZYDIS) 2.5 mg PRN Q2HR PRN PO PSYCHOSIS Last administered on 03/26/17 12:04; Start 03/15/17 at 08:00 Quetiapine Fumarate (SEROquel) 50 mg DAILY@1900 PO Last administered on 18:07; Start 03/15/17 at 19:00 Quetiapine Fumarate (SEROquel) 62.5 mg DAILY@1300 PO Last administered on 03/26 12:46; Start 03/16/17 at 13:00 Vitamin D (Vitamin D3) 50,000 unit WEEKLY PO Last administered on 03/22/17 07 :39; Start 03/15/17 at 19:00 Memantine (Namenda) 10 mg BID PO Last administered on 03/27/17 07:37; Start 03/17/17 at 21:00 Buspirone HCl (Buspar) 5 mg BID92 PO Last administered on 03/18/17 13:50; Start 03/17/17 at 14:00; Stop 03/18/17 at 18:05; Status DC Buspirone HCl (Buspar) 5 mg TID@0900,1300,1700 PO Last administered on 16:42; Start 03/19/17 at 09:00; Stop 03/20/17 at 18:37; Status DC Buspirone HCl (Buspar) 5 mg QID PO Last administered on 03/27/17 17:39; Start 03/20/17 at 21:00 Sertraline HCl (Zoloft) 75 mg DAILY PO Last administered on 03/27/17 07:38; Start 03/26/17 at 09:00 Active Scripts Active Reported Lorazepam 0.5 Mg Tablet 0.25 Mg PO PRN Q2HR PRN MDD 2mg/24hrs Lactulose 10 Gm/15 Ml Solution 10 Gm PO DAILYWBKFT Depakote Sprinkle (Divalproex Sodium) 125 Mg Cap.sprink 375 Mg PO TID 0700, 1300 , 1900 Analgesic [place] (Methyl Salicylate/Menthol) 29 Gm Oint...g. 1 Applic TP QID PRN Milk Of Magnesia (Magnesium Hydroxide) 2,400 Mg/10 Ml Oral.susp 2,400 Mg PO HS PRN Mag-Al Plus Xs Suspension (Mag Hydrox/Al Hydrox/Simeth) 30 Ml Oral.susp 15 Ml PO QIDPRN PRN Tylenol (Acetaminophen) 325 Mg Tablet 650 Mg PO Q6HRS PRN Trazodone Hcl 50 Mg Tablet 100 Mg PO HS Quetiapine Fumarate 50 Mg Tablet 50 Mg PO TID 0700, 1300, 1900 Quetiapine Fumarate 100 Mg Tablet 100 Mg PO DAILY16 Namenda (Memantine Hcl) 10 Mg Tablet 10 Mg PO DAILY 10 Days Melatonin 3 Mg Tablet 3 Mg PO HS Esomeprazole Magnesium 20 Mg Capsule.dr 20 Mg PO DAILY Cymbalta (Duloxetine Hcl) 60 Mg Capsule.dr 60 Mg PO DAILY Cymbalta (Duloxetine Hcl) 30 Mg Capsule.dr 30 Mg PO HS Atorvastatin Calcium 10 Mg Tablet 10 Mg PO QHS I have reviewed the current psychotropics carefully including drug interactions. Risk benefit ratio favors no change other than as noted in my dictated progress note. Diagnosis: Problems: (1) Dementia, vascular, with depression (2) Impulse control disorder (3) Anxiety disorder (4) Lewy body dementia with behavioral disturbance (5) DEMENTIA WITH LEWY BODIES SOHAIL VELASQUEZ MD Mar 27, 2017 20:22
[2017-03-27] MEDS: MELATONIN 3 MG TABLET PO SCH (20:38)
[2017-03-27] MEDS: traZODone 50 MG TABLET. PO SCH (20:38)
[2017-03-27] MEDS: ATORVASTATIN CALCIUM 10 MG TABLET. PO SCH (20:38)
[2017-03-27 20:57] VITALS: BP 121/83
[2017-03-28 06:15] VITALS: BP 137/96
[2017-03-28] MEDS: LACTULOSE 20 GM/30 ML SOLUTION. PO SCH (08:02)
[2017-03-28] MEDS: QUEtiapine 25 MG TABLET. PO SCH ×2 (08:03→16:46)
[2017-03-28] MEDS: busPIRone 5 MG TABLET. PO SCH ×4 (08:03→19:20)
[2017-03-28] MEDS: PANTOPRAZOLE 40 MG TABLET. PO SCH (08:03)
[2017-03-28] MEDS: MEMANTINE 10 MG TABLET. PO SCH ×2 (08:03→19:20)
[2017-03-28] MEDS: SERTRALINE 25 MG TABLET. PO SCH (08:03)
[2017-03-28] MEDS: DIVALPROEX 125 MG CAP.SPRINK PO SCH ×3 (08:04→18:21)
--- NOTE | 2017-03-28 09:30 | PN ---
DATE: 03/26/2017 This late entry, 03/26/2017, covers elements not covered in my initial note of 03/26/2017. SUBJECTIVE: I met with the patient the evening of 03/26/2017. The patient has been yelling out last evening, had to be in the locked hallway upset welding machine operator, redirected, spit out his p.r.n. medications, agitated when his visited. REVIEW OF SYSTEMS: No CV, , pulmonary, eye, ENT system symptoms on review. Reliability poor. MENTAL STATUS EXAM: Oriented to himself. Insight, judgment, recent and remote memory, attention, concentration, fund of knowledge poor, consistent with his diagnosis mentioned in my initial note. IMPRESSION: Major neurocognitive disorder, Lewy body with delusion, depression, behavioral disturbance. PLAN: Continue current psychotropics. Stop the Cymbalta entirely since he has been started on Zoloft. Valproic acid level is therapeutic at 61 on Depakote 375 mg b.i.d. Seroquel was recently increased. We may need to increase further in the next day or so. MAN Ajit VELASQUEZ MD DR: CHRISTY/samara JOB#: [id number] / [id number]
[2017-03-28] MEDS: QUEtiapine 50 MG TABLET. PO SCH ×2 (13:10→18:22)
[2017-03-28 16:05] VITALS: BP 131/80
[2017-03-28] MEDS: traZODone 50 MG TABLET. PO SCH (19:20)
[2017-03-28] MEDS: ATORVASTATIN CALCIUM 10 MG TABLET. PO SCH (19:20)
[2017-03-28] MEDS: MELATONIN 3 MG TABLET PO SCH (19:22)
--- NOTE | 2017-03-28 20:01 | PDOC ---
Exam Note: Irvin Note: Please also refer to the separate dictated note~for this date of service dictated separately.~Patient seen individually. Discussed the patient with Nursing staff reviewed the chart.~Reviewed interim history and current functioning. Reviewed vital signs,~Labs/ Radiology~and current medications noted below. Continue current treatment with the changes noted in the dictated addendum note Assessment: Vital Signs: Vital Signs Date Time Temp Pulse Resp B/P (MAP) Pulse Ox O2 Delivery O2 Flow Rate FiO2 03/28/17 16:05 97.9 63 19 131/80 (97) 98 03/28/17 06:15 Room Air I&O Intake and Output 03/28/17 07:00 Intake Total 360 ml Balance 360 ml Intake Oral 360 ml # Voids 1 Current Medications: Meds: Current Medications Divalproex Sodium (Depakote Sprinkles) 375 mg TID@0700,1300,1900 PO Last administered on 03/13/17 18:27; Start 03/13/17 at 07:00; Stop 03/14/17 at 06 :35; Status DC Duloxetine HCl (Cymbalta) 30 mg HS PO Last administered on 03/26/17 19:53; Start 03/12/17 at 21:00; Stop 03/27/17 at 11:19; Status DC Duloxetine HCl (Cymbalta) 60 mg DAILY PO Last administered on 03/25/17 07:36 ; Start 03/13/17 at 09:00; Stop 03/25/17 at 18:14; Status DC Lorazepam (Ativan) 0.25 mg PRN Q2HR PRN PO ANXIETY / AGITATION Last administered on 03/26/17 00:44; Start 03/12/17 at 19:45 Memantine (Namenda) 10 mg DAILY PO Last administered on 03/17/17 07:32; Start 03/13/17 at 09:00; Stop 03/17/17 at 11:45; Status DC Quetiapine Fumarate (SEROquel) 50 mg TID@0700,1300,1900 PO Last administered on 03/13/17 18:27; Start 03/13/17 at 07:00; Stop 03/14/17 at 06:35; Status DC Quetiapine Fumarate (SEROquel) 100 mg DAILY16 PO Last administered on 03/28/17 16:46; Start 03/13/17 at 16:00 Trazodone HCl (Desyrel) 100 mg HS PO Last administered on 03/28/17 19:20; Start 03/12/17 at 21:00 Melatonin 3 mg QHS PO Last administered on 03/28/17 19:22; Start 03/12/17 at 21:00 Acetaminophen (Tylenol) 650 mg PRN Q6HRS PRN PO PAIN / TEMP; Start 03/12/17 at 20:15 Atorvastatin Calcium (Lipitor) 10 mg QHS PO Last administered on 03/28/17 19:20 ; Start 03/12/17 at 21:00 Al Hydroxide/Mg Hydroxide (Mylanta Plus Xs) 15 ml QIDPRN PRN PO DYSPEPSIA; Start 03/12/17 at 20:15 Multi-Ingredient Ointment (Analgesic [place]) 1 shaila PRN QID PRN TP MUSCLE PAIN; Start 03/12/17 at 20:15 Pantoprazole Sodium (Protonix) 40 mg DAILYAC PO Last administered on 03/28/17 08:03; Start 03/13/17 at 07:30 Lactulose 10 gm DAILYWBKFT PO Last administered on 03/28/17 08:02; Start 03/13 at 08:00 Non-Formulary Medication 2,400 mg PRN QHS PRN PO CONSTIPATION; Start 03/12/17 at 20:15; Stop 03/12/17 at 20:15; Status DC Magnesium Hydroxide (Milk Of Magnesia) 2,400 mg PRN QHS PRN PO CONSTIPATION Last administered on 03/25/17t 16:49; Start 03/12/17 at 20:15 Divalproex Sodium (Depakote Sprinkles) 375 mg TID@0800,1300,1900 PO Last administered on 03/28/17 18:21; Start 03/14/17 at 08:00 Quetiapine Fumarate (SEROquel) 50 mg TID@0800,1300,1900 PO Last administered on 03/14/17t 14:14; Start 03/14/17 at 08:00; Stop 03/14/17 at 18:33; Status DC Quetiapine Fumarate (SEROquel) 50 mg BID@1300,1900 PO Last administered on 12:48; Start 03/14/17 at 19:00; Stop 03/15/17 at 17:38; Status DC Quetiapine Fumarate (SEROquel) 62.5 mg DAILY08 PO Last administered on 08:03; Start 03/15/17 at 08:00 Olanzapine (ZyPREXA ZYDIS) 2.5 mg PRN Q2HR PRN PO PSYCHOSIS Last administered on 03/26/17 12:04; Start 03/15/17 at 08:00 Quetiapine Fumarate (SEROquel) 50 mg DAILY@1900 PO Last administered on 18:22; Start 03/15/17 at 19:00 Quetiapine Fumarate (SEROquel) 62.5 mg DAILY@1300 PO Last administered on 13:10; Start 03/16/17 at 13:00 Vitamin D (Vitamin D3) 50,000 unit WEEKLY PO Last administered on 03/22/17 07 :39; Start 03/15/17 at 19:00 Memantine (Namenda) 10 mg BID PO Last administered on 03/28/17 19:20; Start at 21:00 Buspirone HCl (Buspar) 5 mg BID92 PO Last administered on 03/18/17 13:50; Start 03/17/17 at 14:00; Stop 03/18/17 at 18:05; Status DC Buspirone HCl (Buspar) 5 mg TID@0900,1300,1700 PO Last administered on 16:42; Start 03/19/17 at 09:00; Stop 03/20/17 at 18:37; Status DC Buspirone HCl (Buspar) 5 mg QID PO Last administered on 03/28/17 19:20; Start 03/20/17 at 21:00 Sertraline HCl (Zoloft) 75 mg DAILY PO Last administered on 03/28/17 08:03; Start 03/26/17 at 09:00 Active Scripts Active Reported Lorazepam 0.5 Mg Tablet 0.25 Mg PO PRN Q2HR PRN MDD 2mg/24hrs Lactulose 10 Gm/15 Ml Solution 10 Gm PO DAILYWBKFT Depakote Sprinkle (Divalproex Sodium) 125 Mg Cap.sprink 375 Mg PO TID 0700, 1300 , 1900 Analgesic [place] (Methyl Salicylate/Menthol) 29 Gm Oint...g. 1 Applic TP QID PRN Milk Of Magnesia (Magnesium Hydroxide) 2,400 Mg/10 Ml Oral.susp 2,400 Mg PO HS PRN Mag-Al Plus Xs Suspension (Mag Hydrox/Al Hydrox/Simeth) 30 Ml Oral.susp 15 Ml PO QIDPRN PRN Tylenol (Acetaminophen) 325 Mg Tablet 650 Mg PO Q6HRS PRN Trazodone Hcl 50 Mg Tablet 100 Mg PO HS Quetiapine Fumarate 50 Mg Tablet 50 Mg PO TID 0700, 1300, 1900 Quetiapine Fumarate 100 Mg Tablet 100 Mg PO DAILY16 Namenda (Memantine Hcl) 10 Mg Tablet 10 Mg PO DAILY 10 Days Melatonin 3 Mg Tablet 3 Mg PO HS Esomeprazole Magnesium 20 Mg Capsule.dr 20 Mg PO DAILY Cymbalta (Duloxetine Hcl) 60 Mg Capsule.dr 60 Mg PO DAILY Cymbalta (Duloxetine Hcl) 30 Mg Capsule.dr 30 Mg PO HS Atorvastatin Calcium 10 Mg Tablet 10 Mg PO QHS I have reviewed the current psychotropics carefully including drug interactions. Risk benefit ratio favors no change other than as noted in my dictated progress note. Diagnosis: Problems: (1) Dementia with behavioral disturbance (2) DEMENTIA WITH LEWY BODIES (3) Lewy body dementia with behavioral disturbance (4) Anxiety disorder (5) Impulse control disorder (6) Dementia, vascular, with depression (7) Diabetes mellitus SOAHIL VELASQUEZ MD Mar 28, 2017 20:01
[2017-03-29 06:03] VITALS: BP 114/74
[2017-03-29] MEDS: QUEtiapine 25 MG TABLET. PO SCH ×2 (07:58→16:29)
[2017-03-29] MEDS: LACTULOSE 20 GM/30 ML SOLUTION. PO SCH (07:58)
[2017-03-29] MEDS: DIVALPROEX 125 MG CAP.SPRINK PO SCH ×3 (07:58→19:00)
[2017-03-29] MEDS: SERTRALINE 25 MG TABLET. PO SCH (07:59)
[2017-03-29] MEDS: PANTOPRAZOLE 40 MG TABLET. PO SCH (07:59)
[2017-03-29] MEDS: MEMANTINE 10 MG TABLET. PO SCH ×2 (07:59→19:41)
[2017-03-29] MEDS: busPIRone 5 MG TABLET. PO SCH ×4 (07:59→19:43)
[2017-03-29] MEDS: CHOLECALCIFEROL (VITAMIN D3) 50,000 UNIT CAPSULE PO SCH (08:00)
[2017-03-29] MEDS: QUEtiapine 50 MG TABLET. PO SCH ×2 (13:03→19:00)
[2017-03-29 15:58] VITALS: BP 143/95
[2017-03-29] MEDS: MAGNESIUM HYDROXIDE 2,400 MG/30 ML ORAL.SUSP. PO PRN (16:30)
[2017-03-29] MEDS: traZODone 50 MG TABLET. PO SCH (19:41)
[2017-03-29] MEDS: MELATONIN 3 MG TABLET PO SCH (19:42)
[2017-03-29] MEDS: ATORVASTATIN CALCIUM 10 MG TABLET. PO SCH (19:44)
--- NOTE | 2017-03-29 20:11 | PDOC ---
Exam Note: Irvin Note: Please also refer to the separate dictated note~for this date of service dictated separately.~Patient seen individually. Discussed the patient with Nursing staff reviewed the chart.~Reviewed interim history and current functioning. Reviewed vital signs,~Labs/ Radiology~and current medications noted below. Continue current treatment with the changes noted in the dictated addendum note Assessment: Vital Signs: Vital Signs Date Time Temp Pulse Resp B/P (MAP) Pulse Ox O2 Delivery O2 Flow Rate FiO2 03/29/17 15:58 98.6 79 16 143/95 (111) 98 03/28/17 06:15 Room Air I&O Intake and Output 03/29/17 07:00 Intake Total 480 ml Balance 480 ml Intake Oral 480 ml # Voids 1 Current Medications: Meds: Current Medications Divalproex Sodium (Depakote Sprinkles) 375 mg TID@0700,1300,1900 PO Last administered on 03/13/17 18:27; Start 03/13/17 at 07:00; Stop 03/14/17 at 06 :35; Status DC Duloxetine HCl (Cymbalta) 30 mg HS PO Last administered on 03/26/17 19:53; Start 03/12/17 at 21:00; Stop 03/27/17 at 11:19; Status DC Duloxetine HCl (Cymbalta) 60 mg DAILY PO Last administered on 03/25/17 07:36 ; Start 03/13/17 at 09:00; Stop 03/25/17 at 18:14; Status DC Lorazepam (Ativan) 0.25 mg PRN Q2HR PRN PO ANXIETY / AGITATION Last administered on 03/26/17 00:44; Start 03/12/17 at 19:45 Memantine (Namenda) 10 mg DAILY PO Last administered on 03/17/17 07:32; Start 03/13/17 at 09:00; Stop 03/17/17 at 11:45; Status DC Quetiapine Fumarate (SEROquel) 50 mg TID@0700,1300,1900 PO Last administered on 03/13/17 18:27; Start 03/13/17 at 07:00; Stop 03/14/17 at 06:35; Status DC Quetiapine Fumarate (SEROquel) 100 mg DAILY16 PO Last administered on 03/29/17 16:29; Start 03/13/17 at 16:00 Trazodone HCl (Desyrel) 100 mg HS PO Last administered on 03/29/17 19:41; Start 03/12/17 at 21:00 Melatonin 3 mg QHS PO Last administered on 03/29/17 19:42; Start 03/12/17 at 21:00 Acetaminophen (Tylenol) 650 mg PRN Q6HRS PRN PO PAIN / TEMP; Start 03/12/17 at 20:15 Atorvastatin Calcium (Lipitor) 10 mg QHS PO Last administered on 03/29/17 19:44 ; Start 03/12/17 at 21:00 Al Hydroxide/Mg Hydroxide (Mylanta Plus Xs) 15 ml QIDPRN PRN PO DYSPEPSIA; Start 03/12/17 at 20:15 Multi-Ingredient Ointment (Analgesic [place]) 1 shaila PRN QID PRN TP MUSCLE PAIN; Start 03/12/17 at 20:15 Pantoprazole Sodium (Protonix) 40 mg DAILYAC PO Last administered on 03/29/17 07:59; Start 03/13/17 at 07:30 Lactulose 10 gm DAILYWBKFT PO Last administered on 03/29/17 07:58; Start 03/13 at 08:00 Non-Formulary Medication 2,400 mg PRN QHS PRN PO CONSTIPATION; Start 03/12/17 at 20:15; Stop 03/12/17 at 20:15; Status DC Magnesium Hydroxide (Milk Of Magnesia) 2,400 mg PRN QHS PRN PO CONSTIPATION Last administered on 03/29/17 16:30; Start 03/12/17 at 20:15 Divalproex Sodium (Depakote Sprinkles) 375 mg TID@0800,1300,1900 PO Last administered on 03/29/17 19:00; Start 03/14/17 at 08:00 Quetiapine Fumarate (SEROquel) 50 mg TID@0800,1300,1900 PO Last administered on 03/14/17t 14:14; Start 03/14/17 at 08:00; Stop 03/14/17 at 18:33; Status DC Quetiapine Fumarate (SEROquel) 50 mg BID@1300,1900 PO Last administered on 12:48; Start 03/14/17 at 19:00; Stop 03/15/17 at 17:38; Status DC Quetiapine Fumarate (SEROquel) 62.5 mg DAILY08 PO Last administered on 07:58; Start 03/15/17 at 08:00 Olanzapine (ZyPREXA ZYDIS) 2.5 mg PRN Q2HR PRN PO PSYCHOSIS Last administered on 03/26/17 12:04; Start 03/15/17 at 08:00 Quetiapine Fumarate (SEROquel) 50 mg DAILY@1900 PO Last administered on 19:00; Start 03/15/17 at 19:00 Quetiapine Fumarate (SEROquel) 62.5 mg DAILY@1300 PO Last administered on 13:03; Start 03/16/17 at 13:00 Vitamin D (Vitamin D3) 50,000 unit WEEKLY PO Last administered on 03/29/17 08: 00; Start 03/15/17 at 19:00 Memantine (Namenda) 10 mg BID PO Last administered on 03/29/17 19:41; Start at 21:00 Buspirone HCl (Buspar) 5 mg BID92 PO Last administered on 03/18/17 13:50; Start 03/17/17 at 14:00; Stop 03/18/17 at 18:05; Status DC Buspirone HCl (Buspar) 5 mg TID@0900,1300,1700 PO Last administered on 16:42; Start 03/19/17 at 09:00; Stop 03/20/17 at 18:37; Status DC Buspirone HCl (Buspar) 5 mg QID PO Last administered on 03/29/17 16:30; Start 03/20/17 at 21:00; Stop 03/29/17 at 18:03; Status DC Sertraline HCl (Zoloft) 75 mg DAILY PO Last administered on 03/29/17 07:59; Start 03/26/17 at 09:00 Buspirone HCl (Buspar) 5 mg TID PO Last administered on 03/29/17 19:43; Start 03/29/17 at 21:00 Active Scripts Active Reported Lorazepam 0.5 Mg Tablet 0.25 Mg PO PRN Q2HR PRN MDD 2mg/24hrs Lactulose 10 Gm/15 Ml Solution 10 Gm PO DAILYWBKFT Depakote Sprinkle (Divalproex Sodium) 125 Mg Cap.sprink 375 Mg PO TID 0700, 1300 , 1900 Analgesic [place] (Methyl Salicylate/Menthol) 29 Gm Oint...g. 1 Applic TP QID PRN Milk Of Magnesia (Magnesium Hydroxide) 2,400 Mg/10 Ml Oral.susp 2,400 Mg PO HS PRN Mag-Al Plus Xs Suspension (Mag Hydrox/Al Hydrox/Simeth) 30 Ml Oral.susp 15 Ml PO QIDPRN PRN Tylenol (Acetaminophen) 325 Mg Tablet 650 Mg PO Q6HRS PRN Trazodone Hcl 50 Mg Tablet 100 Mg PO HS Quetiapine Fumarate 50 Mg Tablet 50 Mg PO TID 0700, 1300, 1900 Quetiapine Fumarate 100 Mg Tablet 100 Mg PO DAILY16 Namenda (Memantine Hcl) 10 Mg Tablet 10 Mg PO DAILY 10 Days Melatonin 3 Mg Tablet 3 Mg PO HS Esomeprazole Magnesium 20 Mg Capsule.dr 20 Mg PO DAILY Cymbalta (Duloxetine Hcl) 60 Mg Capsule.dr 60 Mg PO DAILY Cymbalta (Duloxetine Hcl) 30 Mg Capsule.dr 30 Mg PO HS Atorvastatin Calcium 10 Mg Tablet 10 Mg PO QHS I have reviewed the current psychotropics carefully including drug interactions. Risk benefit ratio favors no change other than as noted in my dictated progress note. Diagnosis: Problems: (1) Dementia with behavioral disturbance (2) DEMENTIA WITH LEWY BODIES (3) Lewy body dementia with behavioral disturbance (4) Anxiety disorder (5) Impulse control disorder (6) Dementia, vascular, with depression (7) Diabetes mellitus SOHAIL VELASQUEZ MD Mar 29, 2017 20:11
[2017-03-30 05:42] VITALS: BP 133/86
[2017-03-30] MEDS: PANTOPRAZOLE 40 MG TABLET. PO SCH (07:57)
[2017-03-30] MEDS: DIVALPROEX 125 MG CAP.SPRINK PO SCH ×4 (07:58→18:21)
[2017-03-30] MEDS: LACTULOSE 20 GM/30 ML SOLUTION. PO SCH (07:58)
[2017-03-30] MEDS: MEMANTINE 10 MG TABLET. PO SCH ×2 (08:00→19:40)
[2017-03-30] MEDS: busPIRone 5 MG TABLET. PO SCH ×3 (08:00→19:39)
[2017-03-30] MEDS: SERTRALINE 25 MG TABLET. PO SCH (08:00)
[2017-03-30] MEDS: QUEtiapine 25 MG TABLET. PO SCH ×2 (08:00→15:42)
[2017-03-30 08:01] LABS: BASO # 0.1 x10^3/uL (0.0-0.2); BASO % 1 % (0-3); EOS # 0.1 x10^3/uL (0.0-0.7); EOS % 1 % (0-3); HEMATOCRIT 50.5 % (39.0-53.0); LYMPH # 2.8 x10^3/uL (1.0-4.8); LYMPH % 33 % (24-48); MEAN CORPUSCULAR HEMOGLOBIN 33 pg (25-35); MEAN CORPUSCULAR HGB CONC 34 g/dL (31-37); MEAN CORPUSCULAR VOLUME 97 fL (79-100); MONO # 0.8 x10^3/uL (0.0-1.1); MONO % 9 % (0-9); NEUT # 4.7 x10^3uL (1.8-7.7); NEUT % 56 % (31-73); PLATELET COUNT 254 x10^3/uL (140-400); RED BLOOD COUNT 5.21 x10^6/uL (4.30-5.70); RED CELL DISTRIBUTION WIDTH 14.8 % (11.5-14.5); WHITE BLOOD COUNT 8.4 x10^3/uL (4.0-11.0)
[2017-03-30 08:28] LABS: ALBUMIN 3.5 g/dL (3.4-5.0); ALBUMIN/GLOBULIN RATIO 0.8 (1.0-1.7); CALCIUM 9.5 mg/dL (8.5-10.1); CREATININE 1.5 mg/dL (0.7-1.3); GFR 46.3; MAGNESIUM 2.1 mg/dL (1.8-2.4); TOTAL BILIRUBIN 0.8 mg/dL (0.2-1.0); TOTAL PROTEIN 7.8 g/dL (6.4-8.2)
--- NOTE | 2017-03-30 08:30 | PN ---
DATE: 03/28/2017 This late entry 03/28/2017 covers elements not covered in my initial note 03/28/2017. Met with the patient in the evening of 03/28/2017. The patient remains restless and getting into other patient's rooms and beds, spits out his bedtime medications, napping a lot during the day. REVIEW OF SYSTEMS: No CV, , pulmonary, eye, ENT system symptoms on review. Reliability poor. MENTAL STATUS EXAM: Oriented to himself. Insight, judgment, recent and remote memory, attention, concentration, fund of knowledge poor, consistent with his diagnosis. IMPRESSION: Major neurocognitive disorder, Lewy body with delusion, depression, behavioral disturbance. Rest unchanged. PLAN: Continue psychotropics mentioned in my initial note. MAN Ajit VELASQUEZ MD DR: CHRISTY/samara JOB#: [id number] / [id number]
--- NOTE | 2017-03-30 10:50 | PN ---
DATE: 03/27/2017 This late entry 03/27/2017 covers elements not covered in my initial note 03/27/2017. Met with the patient in the evening of 03/27/2017. SUBJECTIVE: He spit out his bedtime medications previous evening and also in the afternoon, sleepy and irritable at times. REVIEW OF SYSTEMS: No CV, , pulmonary, eye, ENT system symptoms on review. Reliability poor. MENTAL STATUS EXAM: Oriented to himself. Insight, judgment, recent and remote memory, attention, concentration, fund of knowledge poor, consistent with his diagnosis mentioned in my initial note. IMPRESSION: Major neurocognitive disorder, Lewy body with delusion, depression, behavioral disturbance. PLAN: Continue psychotropics mentioned in my initial note. Valproic acid level therapeutic at 61. MAN Ajit VELASQUEZ MD DR: CHRISTY/samara JOB#: [id number] / [id number]
[2017-03-30] MEDS: QUEtiapine 50 MG TABLET. PO SCH ×3 (12:23→18:21)
[2017-03-30 16:19] VITALS: BP 121/83
[2017-03-30] MEDS: ATORVASTATIN CALCIUM 10 MG TABLET. PO SCH (19:39)
[2017-03-30] MEDS: traZODone 50 MG TABLET. PO SCH (19:39)
[2017-03-30] MEDS: MELATONIN 3 MG TABLET PO SCH (19:39)
[2017-03-30] MEDS: MIRTAZAPINE 7.5 MG TABLET. PO SCH (19:41)
--- NOTE | 2017-03-30 20:06 | PDOC ---
Exam Note: Irvin Note: Please also refer to the separate dictated note~for this date of service dictated separately.~Patient seen individually. Discussed the patient with Nursing staff reviewed the chart.~Reviewed interim history and current functioning. Reviewed vital signs,~Labs/ Radiology~and current medications noted below. Continue current treatment with the changes noted in the dictated addendum note Assessment: Vital Signs: Vital Signs Date Time Temp Pulse Resp B/P (MAP) Pulse Ox O2 Delivery O2 Flow Rate FiO2 03/30/17 16:19 98.5 74 16 121/83 (96) 99 03/28/17 06:15 Room Air I&O Intake and Output 03/30/17 07:00 Intake Total 600 ml Balance 600 ml Intake Oral 600 ml Labs: Laboratory Tests Test 03/30/17 07:46 White Blood Count 8.4 x10^3/uL (4.0-11.0) Red Blood Count 5.21 x10^6/uL (4.30-5.70) Hemoglobin 17.0 g/dL (13.0-17.5) Hematocrit 50.5 % (39.0-53.0) Mean Corpuscular Volume 97 fL (79-100) Mean Corpuscular Hemoglobin 33 pg (25-35) Mean Corpuscular Hemoglobin Concent 34 g/dL (31-37) Red Cell Distribution Width 14.8 % (11.5-14.5) H Platelet Count 254 x10^3/uL (140-400) Neutrophils (%) (Auto) 56 % (31-73) Lymphocytes (%) (Auto) 33 % (24-48) Monocytes (%) (Auto) 9 % (0-9) Eosinophils (%) (Auto) 1 % (0-3) Basophils (%) (Auto) 1 % (0-3) Neutrophils # (Auto) 4.7 x10^3uL (1.8-7.7) Lymphocytes # (Auto) 2.8 x10^3/uL (1.0-4.8) Monocytes # (Auto) 0.8 x10^3/uL (0.0-1.1) Eosinophils # (Auto) 0.1 x10^3/uL (0.0-0.7) Basophils # (Auto) 0.1 x10^3/uL (0.0-0.2) Sodium Level 149 mmol/L (136-145) H Potassium Level 4.0 mmol/L (3.5-5.1) Chloride Level 110 mmol/L (98-107) H Carbon Dioxide Level 30 mmol/L (21-32) Anion Gap 9 (6-14) Blood Urea Nitrogen 29 mg/dL (8-26) H Creatinine 1.5 mg/dL (0.7-1.3) H Estimated GFR (Cockcroft-Gault) 46.3 BUN/Creatinine Ratio 19 (6-20) Glucose Level 94 mg/dL (70-99) Calcium Level 9.5 mg/dL (8.5-10.1) Magnesium Level 2.1 mg/dL (1.8-2.4) Total Bilirubin 0.8 mg/dL (0.2-1.0) Aspartate Amino Transferase (AST) 33 U/L (15-37) Alanine Aminotransferase (ALT) 38 U/L (16-63) Alkaline Phosphatase 50 U/L (46-116) Total Protein 7.8 g/dL (6.4-8.2) Albumin 3.5 g/dL (3.4-5.0) Albumin/Globulin Ratio 0.8 (1.0-1.7) L Current Medications: Meds: Current Medications Divalproex Sodium (Depakote Sprinkles) 375 mg TID@0700,1300,1900 PO Last administered on 03/13/17 18:27; Start 03/13/17 at 07:00; Stop 03/14/17 at 06 :35; Status DC Duloxetine HCl (Cymbalta) 30 mg HS PO Last administered on 03/26/17 19:53; Start 03/12/17 at 21:00; Stop 03/27/17 at 11:19; Status DC Duloxetine HCl (Cymbalta) 60 mg DAILY PO Last administered on 03/25/17 07:36 ; Start 03/13/17 at 09:00; Stop 03/25/17 at 18:14; Status DC Lorazepam (Ativan) 0.25 mg PRN Q2HR PRN PO ANXIETY / AGITATION Last administered on 03/26/17 00:44; Start 03/12/17 at 19:45 Memantine (Namenda) 10 mg DAILY PO Last administered on 03/17/17 07:32; Start 03/13/17 at 09:00; Stop 03/17/17 at 11:45; Status DC Quetiapine Fumarate (SEROquel) 50 mg TID@0700,1300,1900 PO Last administered on 03/13/17 18:27; Start 03/13/17 at 07:00; Stop 03/14/17 at 06:35; Status DC Quetiapine Fumarate (SEROquel) 100 mg DAILY16 PO Last administered on 03/30/17 15:42; Start 03/13/17 at 16:00 Trazodone HCl (Desyrel) 100 mg HS PO Last administered on 03/30/17 19:39; Start 03/12/17 at 21:00 Melatonin 3 mg QHS PO Last administered on 03/30/17 19:39; Start 03/12/17 at 21:00 Acetaminophen (Tylenol) 650 mg PRN Q6HRS PRN PO PAIN / TEMP; Start 03/12/17 at 20:15 Atorvastatin Calcium (Lipitor) 10 mg QHS PO Last administered on 03/30/17 19:39 ; Start 03/12/17 at 21:00 Al Hydroxide/Mg Hydroxide (Mylanta Plus Xs) 15 ml QIDPRN PRN PO DYSPEPSIA; Start 03/12/17 at 20:15 Multi-Ingredient Ointment (Analgesic [place]) 1 shaila PRN QID PRN TP MUSCLE PAIN; Start 03/12/17 at 20:15 Pantoprazole Sodium (Protonix) 40 mg DAILYAC PO Last administered on 03/30/17 07:57; Start 03/13/17 at 07:30 Lactulose 10 gm DAILYWBKFT PO Last administered on 03/30/17 07:58; Start 03/13 at 08:00 Non-Formulary Medication 2,400 mg PRN QHS PRN PO CONSTIPATION; Start 03/12/17 at 20:15; Stop 03/12/17 at 20:15; Status DC Magnesium Hydroxide (Milk Of Magnesia) 2,400 mg PRN QHS PRN PO CONSTIPATION Last administered on 03/29/17 16:30; Start 03/12/17 at 20:15 Divalproex Sodium (Depakote Sprinkles) 375 mg TID@0800,1300,1900 PO Last administered on 03/30/17 18:21; Start 03/14/17 at 08:00 Quetiapine Fumarate (SEROquel) 50 mg TID@0800,1300,1900 PO Last administered on 03/14/17 14:14; Start 03/14/17 at 08:00; Stop 03/14/17 at 18:33; Status DC Quetiapine Fumarate (SEROquel) 50 mg BID@1300,1900 PO Last administered on 12:48; Start 03/14/17 at 19:00; Stop 03/15/17 at 17:38; Status DC Quetiapine Fumarate (SEROquel) 62.5 mg DAILY08 PO Last administered on 08:00; Start 03/15/17 at 08:00 Olanzapine (ZyPREXA ZYDIS) 2.5 mg PRN Q2HR PRN PO PSYCHOSIS Last administered on 03/30/17 04:48; Start 03/15/17 at 08:00 Quetiapine Fumarate (SEROquel) 50 mg DAILY@1900 PO Last administered on 18:21; Start 03/15/17 at 19:00 Quetiapine Fumarate (SEROquel) 62.5 mg DAILY@1300 PO Last administered on 13:03; Start 03/16/17 at 13:00 Vitamin D (Vitamin D3) 50,000 unit WEEKLY PO Last administered on 03/29/17 08: 00; Start 03/15/17 at 19:00 Memantine (Namenda) 10 mg BID PO Last administered on 03/30/17 19:40; Start at 21:00 Buspirone HCl (Buspar) 5 mg BID92 PO Last administered on 03/18/17 13:50; Start 03/17/17 at 14:00; Stop 03/18/17 at 18:05; Status DC Buspirone HCl (Buspar) 5 mg TID@0900,1300,1700 PO Last administered on 16:42; Start 03/19/17 at 09:00; Stop 03/20/17 at 18:37; Status DC Buspirone HCl (Buspar) 5 mg QID PO Last administered on 03/29/17at 16:30; Start 03/20/17 at 21:00; Stop 03/29/17 at 18:03; Status DC Sertraline HCl (Zoloft) 75 mg DAILY PO Last administered on 03/30/17at 08:00; Start 03/26/17 at 09:00 Buspirone HCl (Buspar) 5 mg TID PO Last administered on 03/30/17at 19:39; Start 03/29/17 at 21:00 Mirtazapine (Remeron) 7.5 mg QHS PO Last administered on 03/30/17at 19:41; Start 03/30/17 at 21:00 Active Scripts Active Reported Lorazepam 0.5 Mg Tablet 0.25 Mg PO PRN Q2HR PRN MDD 2mg/24hrs Lactulose 10 Gm/15 Ml Solution 10 Gm PO DAILYWBKFT Depakote Sprinkle (Divalproex Sodium) 125 Mg Cap.sprink 375 Mg PO TID 0700, 1300 , 1900 Analgesic [place] (Methyl Salicylate/Menthol) 29 Gm Oint...g. 1 Applic TP QID PRN Milk Of Magnesia (Magnesium Hydroxide) 2,400 Mg/10 Ml Oral.susp 2,400 Mg PO HS PRN Mag-Al Plus Xs Suspension (Mag Hydrox/Al Hydrox/Simeth) 30 Ml Oral.susp 15 Ml PO QIDPRN PRN Tylenol (Acetaminophen) 325 Mg Tablet 650 Mg PO Q6HRS PRN Trazodone Hcl 50 Mg Tablet 100 Mg PO HS Quetiapine Fumarate 50 Mg Tablet 50 Mg PO TID 0700, 1300, 1900 Quetiapine Fumarate 100 Mg Tablet 100 Mg PO DAILY16 Namenda (Memantine Hcl) 10 Mg Tablet 10 Mg PO DAILY 10 Days Melatonin 3 Mg Tablet 3 Mg PO HS Esomeprazole Magnesium 20 Mg Capsule. 20 Mg PO DAILY Cymbalta (Duloxetine Hcl) 60 Mg Capsule. 60 Mg PO DAILY Cymbalta (Duloxetine Hcl) 30 Mg Capsule. 30 Mg PO HS Atorvastatin Calcium 10 Mg Tablet 10 Mg PO QHS I have reviewed the current psychotropics carefully including drug interactions. Risk benefit ratio favors no change other than as noted in my dictated progress note. Diagnosis: Problems: (1) Dementia with behavioral disturbance (2) DEMENTIA WITH LEWY BODIES (3) Lewy body dementia with behavioral disturbance (4) Anxiety disorder (5) Impulse control disorder (6) Dementia, vascular, with depression (7) Diabetes mellitus SOHAIL VELASQUEZ MD Mar 30, 2017 20:06
--- NOTE | 2017-03-31 02:02 | PN ---
DATE: 03/29/2017 This late entry, 03/29/2017 covers elements not covered in my initial note 03/29/2017. Met with the patient evening of 03/29/2017. The patient has appeared confused, wanders the hallways, lies down in bed of other patients and needing more cues to swallow. Appetite is poor. REVIEW OF SYSTEMS: No CV, , pulmonary, eye, ENT system symptoms on review. Reliability poor. MENTAL STATUS EXAM: Oriented to himself. Insight, judgment, recent and remote memory, attention, concentration, fund of knowledge poor, consistent with his diagnosis. IMPRESSION: Major neurocognitive disorder, Lewy body with delusion, depression, behavioral disturbance. Rest unchanged from initial note. PLAN: Continue psychotropics mentioned in my initial note. BuSpar is at 5 mg 4 times a day. We will reduce to 3 times a day consequent to nursing staff noticing he is more confused with the recent increase to 4 times a day. Continue rest unchanged for now. SOHAIL VELASQUEZ MD DR: CHRISTY/samara JOB#: [id number] / [id number]
[2017-03-31 06:04] VITALS: BP 151/97
[2017-03-31] MEDS: SERTRALINE 25 MG TABLET. PO SCH (08:20)
[2017-03-31] MEDS: LACTULOSE 20 GM/30 ML SOLUTION. PO SCH (08:20)
[2017-03-31] MEDS: MEMANTINE 10 MG TABLET. PO SCH ×2 (08:20→20:09)
[2017-03-31] MEDS: MAGNESIUM HYDROXIDE 2,400 MG/30 ML ORAL.SUSP. PO PRN (08:20)
[2017-03-31] MEDS: PANTOPRAZOLE 40 MG TABLET. PO SCH (08:20)
[2017-03-31] MEDS: QUEtiapine 25 MG TABLET. PO SCH ×2 (08:20→16:35)
[2017-03-31] MEDS: busPIRone 5 MG TABLET. PO SCH ×4 (08:21→20:08)
[2017-03-31] MEDS: DIVALPROEX 125 MG CAP.SPRINK PO SCH ×4 (08:21→20:11)
[2017-03-31] MEDS: QUEtiapine 50 MG TABLET. PO SCH ×3 (13:00→20:10)
[2017-03-31 16:13] VITALS: BP 97/68
--- NOTE | 2017-03-31 20:04 | PDOC ---
Exam Note: Irvin Note: Please also refer to the separate dictated note~for this date of service dictated separately.~Patient seen individually. Discussed the patient with Nursing staff reviewed the chart.~Reviewed interim history and current functioning. Reviewed vital signs,~Labs/ Radiology~and current medications noted below. Continue current treatment with the changes noted in the dictated addendum note Assessment: Vital Signs: Vital Signs Date Time Temp Pulse Resp B/P (MAP) Pulse Ox O2 Delivery O2 Flow Rate FiO2 03/31/17 16:13 98.2 68 21 97/68 (78) 93 03/31/17 06:04 Room Air I&O Intake and Output 03/31/17 07:00 Intake Total 480 ml Balance 480 ml Intake Oral 480 ml Current Medications: Meds: Current Medications Divalproex Sodium (Depakote Sprinkles) 375 mg TID@0700,1300,1900 PO Last administered on 03/13/17 18:27; Start 03/13/17 at 07:00; Stop 03/14/17 at 06 :35; Status DC Duloxetine HCl (Cymbalta) 30 mg HS PO Last administered on 03/26/17 19:53; Start 03/12/17 at 21:00; Stop 03/27/17 at 11:19; Status DC Duloxetine HCl (Cymbalta) 60 mg DAILY PO Last administered on 03/25/17 07:36 ; Start 03/13/17 at 09:00; Stop 03/25/17 at 18:14; Status DC Lorazepam (Ativan) 0.25 mg PRN Q2HR PRN PO ANXIETY / AGITATION Last administered on 03/26/17 00:44; Start 03/12/17 at 19:45 Memantine (Namenda) 10 mg DAILY PO Last administered on 03/17/17 07:32; Start 03/13/17 at 09:00; Stop 03/17/17 at 11:45; Status DC Quetiapine Fumarate (SEROquel) 50 mg TID@0700,1300,1900 PO Last administered on 03/13/17 18:27; Start 03/13/17 at 07:00; Stop 03/14/17 at 06:35; Status DC Quetiapine Fumarate (SEROquel) 100 mg DAILY16 PO Last administered on 03/31/17at 16:35; Start 03/13/17 at 16:00 Trazodone HCl (Desyrel) 100 mg HS PO Last administered on 03/30/17 19:39; Start 03/12/17 at 21:00 Melatonin 3 mg QHS PO Last administered on 03/30/17 19:39; Start 03/12/17 at 21:00 Acetaminophen (Tylenol) 650 mg PRN Q6HRS PRN PO PAIN / TEMP; Start 03/12/17 at 20:15 Atorvastatin Calcium (Lipitor) 10 mg QHS PO Last administered on 03/30/17 19:39 ; Start 03/12/17 at 21:00 Al Hydroxide/Mg Hydroxide (Mylanta Plus Xs) 15 ml QIDPRN PRN PO DYSPEPSIA; Start 03/12/17 at 20:15 Multi-Ingredient Ointment (Analgesic [place]) 1 shaila PRN QID PRN TP MUSCLE PAIN; Start 03/12/17 at 20:15 Pantoprazole Sodium (Protonix) 40 mg DAILYAC PO Last administered on 03/31/17 08:20; Start 03/13/17 at 07:30 Lactulose 10 gm DAILYWBKFT PO Last administered on 03/31/17 08:20; Start 03/13 at 08:00 Non-Formulary Medication 2,400 mg PRN QHS PRN PO CONSTIPATION; Start 03/12/17 at 20:15; Stop 03/12/17 at 20:15; Status DC Magnesium Hydroxide (Milk Of Magnesia) 2,400 mg PRN QHS PRN PO CONSTIPATION Last administered on 03/31/17 08:20; Start 03/12/17 at 20:15 Divalproex Sodium (Depakote Sprinkles) 375 mg TID@0800,1300,1900 PO Last administered on 03/31/17 08:21; Start 03/14/17 at 08:00 Quetiapine Fumarate (SEROquel) 50 mg TID@0800,1300,1900 PO Last administered on 03/14/17 14:14; Start 03/14/17 at 08:00; Stop 03/14/17 at 18:33; Status DC Quetiapine Fumarate (SEROquel) 50 mg BID@1300,1900 PO Last administered on 12:48; Start 03/14/17 at 19:00; Stop 03/15/17 at 17:38; Status DC Quetiapine Fumarate (SEROquel) 62.5 mg DAILY08 PO Last administered on 08:20; Start 03/15/17 at 08:00; Stop 03/31/17 at 18:43; Status DC Olanzapine (ZyPREXA ZYDIS) 2.5 mg PRN Q2HR PRN PO PSYCHOSIS Last administered on 03/30/17 04:48; Start 03/15/17 at 08:00 Quetiapine Fumarate (SEROquel) 50 mg DAILY@1900 PO Last administered on 18:21; Start 03/15/17 at 19:00; Stop 03/31/17 at 18:43; Status DC Quetiapine Fumarate (SEROquel) 62.5 mg DAILY@1300 PO Last administered on 13:03; Start 03/16/17 at 13:00 Vitamin D (Vitamin D3) 50,000 unit WEEKLY PO Last administered on 03/29/17 08: 00; Start 03/15/17 at 19:00 Memantine (Namenda) 10 mg BID PO Last administered on 03/31/17 08:20; Start at 21:00 Buspirone HCl (Buspar) 5 mg BID92 PO Last administered on 03/18/17 13:50; Start 03/17/17 at 14:00; Stop 03/18/17 at 18:05; Status DC Buspirone HCl (Buspar) 5 mg TID@0900,1300,1700 PO Last administered on 16:42; Start 03/19/17 at 09:00; Stop 03/20/17 at 18:37; Status DC Buspirone HCl (Buspar) 5 mg QID PO Last administered on 03/29/17 16:30; Start 03/20/17 at 21:00; Stop 03/29/17 at 18:03; Status DC Sertraline HCl (Zoloft) 75 mg DAILY PO Last administered on 03/31/17 08:20; Start 03/26/17 at 09:00 Buspirone HCl (Buspar) 5 mg TID PO Last administered on 03/31/17at 08:21; Start 03/29/17 at 21:00 Mirtazapine (Remeron) 7.5 mg QHS PO Last administered on 03/30/17at 19:41; Start 03/30/17 at 21:00 Quetiapine Fumarate (SEROquel) 50 mg BID@0800,1900 PO ; Start 03/31/17 at 19:00 Active Scripts Active Reported Lorazepam 0.5 Mg Tablet 0.25 Mg PO PRN Q2HR PRN MDD 2mg/24hrs Lactulose 10 Gm/15 Ml Solution 10 Gm PO DAILYWBKFT Depakote Sprinkle (Divalproex Sodium) 125 Mg Cap.sprink 375 Mg PO TID 0700, 1300 , 1900 Analgesic [place] (Methyl Salicylate/Menthol) 29 Gm Oint...g. 1 Applic TP QID PRN Milk Of Magnesia (Magnesium Hydroxide) 2,400 Mg/10 Ml Oral.susp 2,400 Mg PO HS PRN Mag-Al Plus Xs Suspension (Mag Hydrox/Al Hydrox/Simeth) 30 Ml Oral.susp 15 Ml PO QIDPRN PRN Tylenol (Acetaminophen) 325 Mg Tablet 650 Mg PO Q6HRS PRN Trazodone Hcl 50 Mg Tablet 100 Mg PO HS Quetiapine Fumarate 50 Mg Tablet 50 Mg PO TID 0700, 1300, 1900 Quetiapine Fumarate 100 Mg Tablet 100 Mg PO DAILY16 Namenda (Memantine Hcl) 10 Mg Tablet 10 Mg PO DAILY 10 Days Melatonin 3 Mg Tablet 3 Mg PO HS Esomeprazole Magnesium 20 Mg Capsule. 20 Mg PO DAILY Cymbalta (Duloxetine Hcl) 60 Mg Capsule. 60 Mg PO DAILY Cymbalta (Duloxetine Hcl) 30 Mg Capsule. 30 Mg PO HS Atorvastatin Calcium 10 Mg Tablet 10 Mg PO QHS I have reviewed the current psychotropics carefully including drug interactions. Risk benefit ratio favors no change other than as noted in my dictated progress note. Diagnosis: Problems: (1) Dementia with behavioral disturbance (2) DEMENTIA WITH LEWY BODIES (3) Lewy body dementia with behavioral disturbance (4) Anxiety disorder (5) Impulse control disorder (6) Dementia, vascular, with depression (7) Diabetes mellitus SOHAIL VELASQUEZ MD Mar 31, 2017 20:03
[2017-03-31] MEDS: traZODone 50 MG TABLET. PO SCH (20:08)
[2017-03-31] MEDS: MELATONIN 3 MG TABLET PO SCH (20:08)
[2017-03-31] MEDS: ATORVASTATIN CALCIUM 10 MG TABLET. PO SCH (20:08)
[2017-03-31] MEDS: MIRTAZAPINE 7.5 MG TABLET. PO SCH (20:08)
[2017-04-01] MEDS ORDERED: CHOL500050 PO (01:01)
[2017-04-01] MEDS ORDERED: MIRT15TA3 PO (01:18)
[2017-04-01] MEDS ORDERED: OLAN5TAB5 PO (01:25)
[2017-04-01] MEDS ORDERED: PANT40TA5 PO (01:26)
[2017-04-01] MEDS ORDERED: QUET25TA5 PO (01:33)
[2017-04-01] MEDS ORDERED: QUET50TA5 PO (01:34)
[2017-04-01] MEDS ORDERED: SERT50TA PO (01:35)
[2017-04-01] MEDS ORDERED: BUSP5TAB PO (01:37)
[2017-04-01 05:44] VITALS: BP 124/80
[2017-04-01] MEDS: SERTRALINE 25 MG TABLET. PO SCH (08:19)
[2017-04-01] MEDS: PANTOPRAZOLE 40 MG TABLET. PO SCH (08:19)
[2017-04-01] MEDS: DIVALPROEX 125 MG CAP.SPRINK PO SCH (08:19)
[2017-04-01] MEDS: LACTULOSE 20 GM/30 ML SOLUTION. PO SCH (08:19)
[2017-04-01] MEDS: busPIRone 5 MG TABLET. PO SCH (08:20)
[2017-04-01] MEDS: QUEtiapine 50 MG TABLET. PO SCH (08:20)
[2017-04-01] MEDS: MEMANTINE 10 MG TABLET. PO SCH (08:20)
--- NOTE | 2017-04-01 18:21 | PDOC ---
Exam Note: Irvin Note: Please also refer to the separate dictated note~for this date of service dictated separately.~Patient seen individually. Discussed the patient with Nursing staff reviewed the chart.~Reviewed interim history and current functioning. Reviewed vital signs,~Labs/ Radiology~and current medications noted below. Continue current treatment with the changes noted in the dictated addendum note Assessment: Vital Signs: Vital Signs Date Time Temp Pulse Resp B/P (MAP) Pulse Ox O2 Delivery O2 Flow Rate FiO2 04/01/17 05:44 97.2 75 18 124/80 (95) 94 03/31/17 06:04 Room Air I&O Intake and Output 04/01/17 07:00 Intake Total 720 ml Balance 720 ml Intake Oral 720 ml Current Medications: Meds: Current Medications Divalproex Sodium (Depakote Sprinkles) 375 mg TID@0700,1300,1900 PO Last administered on 03/13/17 18:27; Start 03/13/17 at 07:00; Stop 03/14/17 at 06 :35; Status DC Duloxetine HCl (Cymbalta) 30 mg HS PO Last administered on 03/26/17 19:53; Start 03/12/17 at 21:00; Stop 03/27/17 at 11:19; Status DC Duloxetine HCl (Cymbalta) 60 mg DAILY PO Last administered on 03/25/17 07:36 ; Start 03/13/17 at 09:00; Stop 03/25/17 at 18:14; Status DC Lorazepam (Ativan) 0.25 mg PRN Q2HR PRN PO ANXIETY / AGITATION Last administered on 03/26/17 00:44; Start 03/12/17 at 19:45; Stop 04/01/17 at 11: 20; Status DC Memantine (Namenda) 10 mg DAILY PO Last administered on 03/17/17 07:32; Start 03/13/17 at 09:00; Stop 03/17/17 at 11:45; Status DC Quetiapine Fumarate (SEROquel) 50 mg TID@0700,1300,1900 PO Last administered on 03/13/17 18:27; Start 03/13/17 at 07:00; Stop 03/14/17 at 06:35; Status DC Quetiapine Fumarate (SEROquel) 100 mg DAILY16 PO Last administered on 03/31/17 16:35; Start 03/13/17 at 16:00; Stop 04/01/17 at 11:20; Status DC Trazodone HCl (Desyrel) 100 mg HS PO Last administered on 03/31/17 20:08; Start 03/12/17 at 21:00; Stop 04/01/17 at 11:20; Status DC Melatonin 3 mg QHS PO Last administered on 03/31/17 20:08; Start 03/12/17 at 21:00; Stop 04/01/17 at 11:20; Status DC Acetaminophen (Tylenol) 650 mg PRN Q6HRS PRN PO PAIN / TEMP; Start 03/12/17 at 20:15; Stop 04/01/17 at 11:20; Status DC Atorvastatin Calcium (Lipitor) 10 mg QHS PO Last administered on 03/31/17 20:08 ; Start 03/12/17 at 21:00; Stop 04/01/17 at 11:20; Status DC Al Hydroxide/Mg Hydroxide (Mylanta Plus Xs) 15 ml QIDPRN PRN PO DYSPEPSIA; Start 03/12/17 at 20:15; Stop 04/01/17 at 11:20; Status DC Multi-Ingredient Ointment (Analgesic [place]) 1 shaila PRN QID PRN TP MUSCLE PAIN; Start 03/12/17 at 20:15; Stop 04/01/17 at 11:20; Status DC Pantoprazole Sodium (Protonix) 40 mg DAILYAC PO Last administered on 04/01/17 08:19; Start 03/13/17 at 07:30; Stop 04/01/17 at 11:20; Status DC Lactulose 10 gm DAILYWBKFT PO Last administered on 04/01/17 08:19; Start 03/13 at 08:00; Stop 04/01/17 at 11:20; Status DC Non-Formulary Medication 2,400 mg PRN QHS PRN PO CONSTIPATION; Start 03/12/17 at 20:15; Stop 03/12/17 at 20:15; Status DC Magnesium Hydroxide (Milk Of Magnesia) 2,400 mg PRN QHS PRN PO CONSTIPATION Last administered on 03/31/17 08:20; Start 03/12/17 at 20:15; Stop 04/01/17 at 11:20; Status DC Divalproex Sodium (Depakote Sprinkles) 375 mg TID@0800,1300,1900 PO Last administered on 04/01/17 08:19; Start 03/14/17 at 08:00; Stop 04/01/17 at 11:20 ; Status DC Quetiapine Fumarate (SEROquel) 50 mg TID@0800,1300,1900 PO Last administered on 03/14/17 14:14; Start 03/14/17 at 08:00; Stop 03/14/17 at 18:33; Status DC Quetiapine Fumarate (SEROquel) 50 mg BID@1300,1900 PO Last administered on t 12:48; Start 03/14/17 at 19:00; Stop 03/15/17 at 17:38; Status DC Quetiapine Fumarate (SEROquel) 62.5 mg DAILY08 PO Last administered on 08:20; Start 03/15/17 at 08:00; Stop 03/31/17 at 18:43; Status DC Olanzapine (ZyPREXA ZYDIS) 2.5 mg PRN Q2HR PRN PO PSYCHOSIS Last administered on 04/01/17 06:21; Start 03/15/17 at 08:00; Stop 04/01/17 at 11:20; Status DC Quetiapine Fumarate (SEROquel) 50 mg DAILY@1900 PO Last administered on 18:21; Start 03/15/17 at 19:00; Stop 03/31/17 at 18:43; Status DC Quetiapine Fumarate (SEROquel) 62.5 mg DAILY@1300 PO Last administered on 13:03; Start 03/16/17 at 13:00; Stop 04/01/17 at 11:20; Status DC Vitamin D (Vitamin D3) 50,000 unit WEEKLY PO Last administered on 03/29/17 08: 00; Start 03/15/17 at 19:00; Stop 04/01/17 at 11:20; Status DC Memantine (Namenda) 10 mg BID PO Last administered on 04/01/17at 08:20; Start at 21:00; Stop 04/01/17 at 11:20; Status DC Buspirone HCl (Buspar) 5 mg BID92 PO Last administered on 03/18/17t 13:50; Start 03/17/17 at 14:00; Stop 03/18/17 at 18:05; Status DC Buspirone HCl (Buspar) 5 mg TID@0900,1300,1700 PO Last administered on 16:42; Start 03/19/17 at 09:00; Stop 03/20/17 at 18:37; Status DC Buspirone HCl (Buspar) 5 mg QID PO Last administered on 03/29/17at 16:30; Start 03/20/17 at 21:00; Stop 03/29/17 at 18:03; Status DC Sertraline HCl (Zoloft) 75 mg DAILY PO Last administered on 04/01/17at 08:19; Start 03/26/17 at 09:00; Stop 04/01/17 at 11:20; Status DC Buspirone HCl (Buspar) 5 mg TID PO Last administered on 04/01/17at 08:20; Start 03/29/17 at 21:00; Stop 04/01/17 at 11:20; Status DC Mirtazapine (Remeron) 7.5 mg QHS PO Last administered on 03/31/17at 20:08; Start 03/30/17 at 21:00; Stop 04/01/17 at 11:20; Status DC Quetiapine Fumarate (SEROquel) 50 mg BID@0800,1900 PO Last administered on at 08:20; Start 03/31/17 at 19:00; Stop 04/01/17 at 11:20; Status DC Active Scripts Active Reported Buspirone Hcl 5 Mg Tablet 5 Mg PO TID Zoloft (Sertraline Hcl) 50 Mg Tablet 75 Mg PO DAILY Seroquel (Quetiapine Fumarate) 50 Mg Tablet 50 Mg PO BID@0800,1900 Seroquel (Quetiapine Fumarate) 25 Mg Tablet 62.5 Mg PO DAILY@1300 Pantoprazole Sodium 40 Mg Tablet.dr 40 Mg PO DAILYAC Zyprexa Zydis (Olanzapine) 5 Mg Tab.rapdis 2.5 Mg PO PRN Q2HR PRN Mirtazapine 15 Mg Tablet 7.5 Mg PO QHS Vitamin D3 (Cholecalciferol (Vitamin D3)) 50,000 Unit Capsule 50,000 Unit PO WEEKLY Lorazepam 0.5 Mg Tablet 0.25 Mg PO PRN Q2HR PRN MDD 2mg/24hrs Lactulose 10 Gm/15 Ml Solution 10 Gm PO DAILYWBKFT Depakote Sprinkle (Divalproex Sodium) 125 Mg Cap.sprink 375 Mg PO TID@0800,1300, 1900 Analgesic [place] (Methyl Salicylate/Menthol) 29 Gm Oint...g. 1 Applic TP QID PRN Milk Of Magnesia (Magnesium Hydroxide) 2,400 Mg/10 Ml Oral.susp 2,400 Mg PO HS PRN Mag-Al Plus Xs Suspension (Mag Hydrox/Al Hydrox/Simeth) 30 Ml Oral.susp 15 Ml PO QIDPRN PRN Tylenol (Acetaminophen) 325 Mg Tablet 650 Mg PO Q6HRS PRN Trazodone Hcl 50 Mg Tablet 100 Mg PO HS Quetiapine Fumarate 100 Mg Tablet 100 Mg PO DAILY16 Namenda (Memantine Hcl) 10 Mg Tablet 10 Mg PO BID Melatonin 3 Mg Tablet 3 Mg PO HS Atorvastatin Calcium 10 Mg Tablet 10 Mg PO QHS I have reviewed the current psychotropics carefully including drug interactions. Risk benefit ratio favors no change other than as noted in my dictated progress note. Diagnosis: Problems: (1) Diabetes mellitus (2) Dementia, vascular, with depression (3) Impulse control disorder (4) Anxiety disorder (5) Lewy body dementia with behavioral disturbance (6) DEMENTIA WITH LEWY BODIES (7) Dementia with behavioral disturbance SOHAIL VELASQUEZ MD Apr 01, 2017 18:21
--- NOTE | 2017-04-02 07:54 | PN ---
DATE: 03/30/2017 PSYCHIATRIC PROGRESS NOTE This is a late entry 03/30/2017, covers elements not covered in my initial note 03/30/2017. Met with the patient in the evening of 03/30/2017 and staffed at treatment team meeting earlier in the day on 03/30/2017. The patient's , Tish, attended the conference. I had a lengthy discussion about the patient's diagnosis, medications, progress. He did well the previous evening, cooperative, wandering, spit out his afternoon medications, appetite poor 50%. Slept 3 hours previous evening. We will change Depakote to liquid. REVIEW OF SYSTEMS: No CV, , pulmonary, eye, ENT system symptoms on review. Reliability poor. MENTAL STATUS EXAM: Oriented to himself. Insight, judgment, recent and remote memory, attention, concentration, fund of knowledge poor, consistent with his diagnosis mentioned in my initial note. IMPRESSION: Major neurocognitive disorder, Lewy body with delusion, depression. PLAN: Start Remeron 7.5 mg p.o. at bedtime to help with insomnias. Hopefully stimulate the appetite and to help anxiety as well. Maintain rest psychotropics unchanged. Change the Depakote to liquid and BuSpar was reduced from 5 mg 4 times a day to 3 times a day since there was some questionable increase in confusion with increase of BuSpar. MAN Ajit VELASQUEZ MD DR: CHRISTY/samara JOB#: [id number] / [id number]
--- NOTE | 2017-04-02 11:13 | PN ---
DATE: 03/31/2017 PSYCHIATRIC PROGRESS NOTE This late entry of 03/31/2017, covers elements not covered in my initial note for 03/31/2017. SUBJECTIVE: I met with the patient evening of 03/31/2017. The patient is less verbal, confused, has some trouble swallowing. We will reduce the ____ to see if this helps with the above problems. REVIEW OF SYSTEMS: No CV, , pulmonary, eye, ENT system symptoms on review. He is less tearful. Reliability poor. MENTAL STATUS EXAM: Oriented to himself. Insight, judgment, recent and remote memory, attention, concentration, fund of knowledge poor, consistent with his diagnosis mentioned in my initial note. IMPRESSION: Major neurocognitive disorder, Lewy body with delusion, depression, behavioral disturbance. Rest unchanged. PLAN: Change on Seroquel noted above. Rest unchanged from initial note. Rest unchanged from initial note. MAN Ajit VELASQUEZ MD DR: CHRISTY/samara JOB#: [id number] / [id number]
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
== END 2017-04-01 10:30 | disposition home or self-care (01) | DRG 57 ==
LOC: ER 16:29 → GEROPSY 18:30 → ER 19:10 → GEROPSY 03-17 11:37
PROVIDERS: ADMIT Psychiatry & Neurology Psychiatry; ATTEND Psychiatry & Neurology Psychiatry
DX: G31.83 Neurocognitive disorder with Lewy bodies (principal); G30.9 Alzheimer's disease, unspecified; F01.51 Vascular dementia, unspecified severity, with behavioral disturbance; E11.9 Type 2 diabetes mellitus without complications; F02.81 Dementia in other diseases classified elsewhere, unspecified severity, with behavioral disturbance; F32.9 Major depressive disorder, single episode, unspecified; F63.9 Impulse disorder, unspecified; F41.9 Anxiety disorder, unspecified; I10 Essential (primary) hypertension; E78.5 Hyperlipidemia, unspecified; F22 Delusional disorders; G47.00 Insomnia, unspecified; K21.9 Gastro-esophageal reflux disease without esophagitis; K59.00 Constipation, unspecified; R13.10 Dysphagia, unspecified; Z66 Do not resuscitate; Z79.899 Other long term (current) drug therapy; Z91.83 Wandering in diseases classified elsewhere
CPT/HCPCS: 36415; 71010; 80053; 80061; 80164; 81001; 82306; 82607; 83036; 83540; 83550; 83735; 84436; 84443; 84480; 85025; 86593; 93005; 99285-25